=== PATIENT | female | born 1945 | race Caucasian/White ===

== ENCOUNTER 2019-10-06 11:47 | Outpatient (CLI) | payer BC, SELFPAY ==
[2019-10-06 12:20] LABS: Add Urine Microscopic? YES; Appearance Urine Clear (Clear); Bilirubin Urine Negative (Negative); Blood Urine Negative (Negative); Color Urine Yellow (Yellow); Glucose Urine UA Negative (Negative); Ketones Urine Negative (Negative); Leukocyte Esterase Ur 2+ LEU/UL (Negative); Mucus Urine Rare /lpf; Nitrate Urine Negative (Negative); Protein Urine Negative (Negative); RBC Urine 0-2 /hpf (0-2); Specific Grav Ur 1.016 (1.001-1.035); Squamous Epithelial Cell Urine Many /hpf (Few); Transitional Epi Cells Urine Rare /hpf (None Seen); Urobilinogen Urine Negative mg/dL (<2.0)
== END 2019-10-06 11:48 | disposition home or self-care (01) ==
LOC: ANHLAB 11:49
PROVIDERS: PCP Internal Medicine; Visit Provider Clinical Nurse Specialist
DX: N39.0 Urinary tract infection, site not specified (principal)
CPT/HCPCS: 81001; 87086; 87088

== ENCOUNTER 2019-11-13 09:41 | Outpatient (CLI) | payer BC, SELFPAY ==
--- NOTE | 2019-11-13 09:43 | ECG_ITS ---
Measurements Intervals Bertha Rate: 56 P: 64 ID: [id number] QRS: 55 QRSD: 86 T: 64 QT: 405 QTc: 392 Interpretive Statements SINUS BRADYCARDIA BORDERLINE ECG Electronically Signed On 11-13-2019 10:16:39 CDT by Ish Gibbons D.O.
[2019-11-13 10:07] LABS: Hematocrit 37.9 % (37.0-47.0); Hemoglobin 12.8 g/dL (12.0-15.0)
== END 2019-11-13 09:42 | disposition home or self-care (01) ==
PROVIDERS: Anesthesiology; PCP Internal Medicine; Visit Provider Orthopaedic Surgery
DX: I10 Essential (primary) hypertension (principal); D64.9 Anemia, unspecified; R94.31 Abnormal electrocardiogram [ECG] [EKG]
CPT/HCPCS: 36415; 85014; 85018; 93005

== ENCOUNTER 2019-11-14 01:19 | Outpatient (CLI) | payer BC, SELFPAY ==
[2019-11-14 19:24] LABS: SARS-CoV-2 RNA PCR Negative
== END 2019-11-14 01:20 | disposition home or self-care (01) ==
LOC: ANHCOVIDDT 01:20
PROVIDERS: PCP Internal Medicine; Visit Provider Orthopaedic Surgery
DX: Z01.812 Encounter for preprocedural laboratory examination (principal); Z11.59 Encounter for screening for other viral diseases
CPT/HCPCS: 87635; C9803; U0003

== ENCOUNTER 2019-11-16 01:02 | Day surgery (SDC) | payer BC, SELFPAY ==
[2019-11-10 12:43] VITALS: BMI 28.2
[2019-11-16] VITALS (8 sets, daily range): BP systolic 120–167; BP diastolic 60–72; PULSE 62–84; RESP 10–16; TEMP 35.9–36.8; O2SAT 97–100
--- NOTE | ~2019-11-16 | XR_ITS ---
EXAMINATION: XR surgery orthopedic DATE: 11/16/2019 10:57 INDICATION: Pes planus. TECHNIQUE: 3 intraoperative fluoroscopic views of the right foot were obtained. I was not present. Fl uoroscopy exposure time was 65 seconds. COMPARISON: Right foot radiographs 10/04/2019 FINDINGS: There are changes of calcaneal osteotomy with internal fixation with 2 screws. Skin carla are noted. IMPRESSION: 1. Calcaneal osteotomy with internal fixation. Reviewed, dictated and finalized at location A.
--- NOTE | 2019-11-16 07:13 | WPDHPUPDATE1 ---
History and Physical Update Update Date/Time: 11/16/19 07:13 History and Physical has been reviewed, including an updated exam of the patient. There are NO changes in the patient's condition. Covid test negative Risks, benefits, and alternatives have been discussed and questions answered. Patient agrees to proceed with procedure.
[2019-11-16] MEDS: LACTATED RINGERS 1,000 ML 30 ML IV CONT ×2 (07:30→11:11)
[2019-11-16] MEDS: ACETAMINOPHEN 500 MG TABLET 1000 MG PO (07:31)
[2019-11-16] MEDS: KETOROLAC 15 MG/ML VIAL (*BKC) IV PUSH (07:33)
--- NOTE | 2019-11-16 07:59 | WPDANESEPPF ---
Anes - Initial Pre Proc Eval Procedure: Operation Date: 11/16/19 09:00 Proposed Procedures p Right Posterior Tibial Tendon Reconstruction with Flexor Digitorum Tendon Transfer, Posterior Calcaneal Osteotomy, Spring Ligament Reconstruction - Bryant Dejesus MD s Achilles Tendon Lengthening - Bryant Dejesus MD Date/Time: 11/16/19 07:59 Surgeon: Bryant Dejesus MD Pre Op Diagnosis: rt posterior tibial tendon dysfunction, flat foot, Patient Data Age: 74 Gender: F Height: 5 ft 6 in Weight: 81.4 kg Last Vital Signs Temp 36.8 C 11/16/19 07:50 Pulse 62 11/16/19 07:50 Resp 16 11/16/19 07:50 BP 167/67 H 11/16/19 07:50 Pulse Ox 100 11/16/19 07:50 Allergies Allergy/AdvReac Type Severity Reaction Status Date / Time lisinopril Allergy Mild Cough Verified 11/10/19 12:16 Sulfa (Sulfonamide Allergy Unknown Unknown Verified 11/10/19 12:16 Antibiotics) hydrochlorothiazide Allergy Dizziness Verified 11/10/19 12:16 and nausea Home Medications Medication Instructions Recorded Confirmed Type L. gasseri-B. bifidum-B longum 1.5 1 cap PO DAILY cap 03/30/19 11/16/19 History billion cell capsule acetaminophen 650 mg tablet 650 mg PO Q4H PRN 03/30/19 11/16/19 History apixaban 5 mg tablet 5 mg PO BID 03/30/19 11/16/19 History calcium carbonate 600 mg calcium 600 mg PO DAILY 03/30/19 11/16/19 History (1,500 mg) tablet cholecalciferol (vitamin D3) 50 2,000 unit PO DAILY 03/30/19 11/16/19 History mcg (2,000 unit) capsule flecainide 50 mg tablet 50 mg PO Q12H 03/30/19 11/16/19 History fluticasone propionate 50 2 spray NASAL DAILY 03/30/19 11/16/19 History mcg/actuation nasal spray,suspension multivitamin 1 tablet PO DAILY 03/30/19 11/16/19 History ferrous sulfate 325 mg (65 mg 325 mg PO DAILY #90 tablet 08/17/19 11/16/19 Rx iron) tablet omeprazole 20 mg capsule,delayed 20 mg PO DAILY #90 cap 08/30/19 11/16/19 Rx release metoprolol succinate 25 mg 12.5 mg PO DAILY tablet 09/22/19 11/16/19 History tablet,extended release 24 hr valsartan 40 mg tablet 40 mg PO DAILY tablet 09/22/19 11/16/19 History tolterodine 4 mg capsule,extended 4 mg PO Q24H #90 cap 10/17/19 11/16/19 Rx release 24 hr estradiol 10 mcg vaginal tablet 10 mcg VAGINAL 2XW #30 tablet 10/30/19 11/16/19 Rx docusate sodium 100 mg capsule 100 mg PO DAILY 11/07/19 11/16/19 History diclofenac sodium 2 gm TOPICAL HS 11/10/19 11/16/19 History Patient hx anesthesia problems: none Family hx anesthesia problems: none PMFSH Past Medical History Medical History Allergies Anemia Arthritis Atrial fibrillation Cataract Chicken pox Decreased GFR Flatfoot Gastrocnemius equinus of right lower extremity Hemorrhoids History of anesthesia reaction History of measles, mumps, or rubella Hypertension Hyponatremia Migraine headache Osteoarthritis Overactive bladder Posterior tibial tendon dysfunction (PTTD) of right lower extremity Pulmonary heart disease Seasonal allergies Spring ligament tear Urinary frequency Vitamin deficiency Weight gain Surgical History Surgical History H/O foot surgery Cyst removed on left foot 08/2018 H/O knee surgery Torn cartilage Left 2000 H/O tubal ligation BL 1978 History of hip surgery left hip 2019 History of knee replacement Right 2006 Left 2017 Status post repair of pectoralis muscle tear Tear in left rip Family History Family History Mother Family history of Alzheimer's disease, Onset Age: 85 Sibling Patient's brother is in good health Father MVA (motor vehicle accident) Social History Social History Smoking status: Never smoker Second hand tobacco smoke exposure: No Alcohol intake: current Living arrangements: with family Kateanalia
--- NOTE | 2019-11-16 08:35 | WPDANESPNB ---
Anes - Peripheral Nerve Block Date/Time: 11/16/19 08:35 I have discussed with the patient/family/POA the placement of a peripheral nerve block for post-operative pain management, including associated risks, benefits, complications, and side effects. Alternative methods of post-operative analgesia were detailed. Questions were solicited and answers provided to the satisfaction of the patient/family/POA. Time-Out: A pre-procedural Time-Out was completed immediately before starting the procedure and confirmed: Patient Identification, Site, Procedure, Patient Position and the Availability of Requisite Equipment. Clinical Indications: Acute post-operative pain management requested by the operative surgeon. Nerve Block Insertion Note Anes-nerve block: posterior fossa sciatic right and other (Saphenous) Patient position: supine Needle: 22 gauge, stimulating, insulated echogenic needle. Needle length: 80 mm Technique: nerve stimulation lost at (mA) (0.4) Injectate: bupivacaine 0.5% with epi 5 mcg/ml (23cc sciatic and 7 cc saphenous) Observations: tolerated well Complications: none Procedure start time:: 826 Procedure end time:: 835
[2019-11-16] MEDS: ceFAZolin 2 GM/D5W 50 ML 2 GM/50 ML BAG IVPB (08:47)
--- NOTE | 2019-11-16 11:23 | PM.PROC ---
Procedure Note - Detailed Date of procedure: 11/16/19 Pre-op diagnosis: rt posterior tibial tendon dysfunction, flat foot, Post-op diagnosis: same Procedure performed: Right flatfoot reconstruction with calcaneal osteotomy, posterior tibial reconstruction with flexor digitorum transfer, Achilles tendon length Description of procedure: Indications: Patient is a 74-year-old woman with severe flatfoot deformity, posterior tibial tendinitis with partial tear and Achilles tightening / contracture. Patient failed conservative treatment bracing, physical therapy, custom inserts. She has pain with daily activity and with any weight-bearing. She presents for operative treatment. What was done: Patient identified in the preoperative holding. Informed consent given. Operative extremity marked. Patient received intravenous antibiotics. Patient brought to the operating room where underwent general anesthetic by anesthesia team. Positioned supine on operating room table. Time-out performed confirming the patient, site of the surgery and the plan. Right lower extremity prepped draped usual sterile surgical fashion using a ChloraPrep skin solution. Foot and ankle exsanguinated and thigh tourniquet inflated to 250 mmHg. Local anesthetic for the Achilles tendon. Ankles noted to have -10 degrees of dorsiflexion in neutral. Fifteen blade knife use to perform a abimbola section of the Achilles tendon on the medial side. Tendon slide performed. Wounds irrigated oblique incision made over the lateral aspect of the calcaneal tuberosity with 15 blade knife. Hemostasis controlled electrocautery. Care taken to isolate the sural nerve and retracted it. Z shaped step cut planned out on the lateral surface of the calcaneus verified with image intensification. Sagittal saw used to the osteotomy lateral. Completed with an osteotome. Posterior tuberosity then translated medially as well as rotated. Iliac crest allograft bone graft packed into the opening. Provisionally pinned and checked with image intensification. Fixation with 5.0 mm fully threaded headless cannulated screws x2. Image intensification confirmed final alignment and placement of the hardware. Wound thoroughly irrigated with antibiotic solution. Deep fascia repaired with 3 0 Monocryl interrupted suture. Subcutaneous tissue repaired with 3 0 Monocryl interrupted suture and skin repaired with carla. Stab incisions for the percutaneous screw fixation fixed with carla. Oblique incision made over the medial aspect posterior tibial tendon sheath with a 15 blade knife. Hemostasis controlled with electrocautery. Tendon sheath incised in line with skin incision. Copious amounts of inflammatory tendon fluid suctioned out. Posterior tibial tendon thickened scarred and partially torn. So sharply released off the navicula with 15 blade knife. Drill hole placed in the medial navicula from dorsal to plantar. Flexor digitorum then found deep in the wound and traced out distally and released. Stay suture placed in the end of the tendon. Sustentacular talum dissected out. Reform with the internal brace secured to the sustentacular min verified with image intensification. With the foot in corrected position suture was then passed through the hole in the navicular and along with the flexor digitorum tendon. This was secured with a 4.75 mm bioabsorbable interference screw. Image intensification confirmed final alignment of the foot. Good correction of the pes [place] valgus deformity noted. The posterior tibial tendon was then sutured into the flexor digitorum with 0 Vicryl interrupted suture. Thorough irrigation of the wound. Tendon sheath repaired with 0 Vicryl running suture. Subcutaneous tissue repaired with 2 Vicryl. Skin repaired with carla. Sterile dressings were then applied. A well-padded short-leg cast then applied. The patient was then woken from anesthesia, extubated and taken to the recovery room in stable c
[2019-11-16] MEDS: oxyCODONE HCL (*CRX) 5 MG TAB IR PO (13:05)
== END 2019-11-16 13:18 | disposition home or self-care (01) ==
PROVIDERS: PCP Internal Medicine; Visit Provider Orthopaedic Surgery
PROC: (CPT 28750; principal; 2019-11-16 09:00)
PROC: (CPT 27650; 2019-11-16 09:00)
DX: M21.41 Flat foot [pes planus] (acquired), right foot (principal); M76.821 Posterior tibial tendinitis, right leg; M67.01 Short Achilles tendon (acquired), right ankle; G89.18 Other acute postprocedural pain; I10 Essential (primary) hypertension; I48.91 Unspecified atrial fibrillation; D64.9 Anemia, unspecified; Z79.01 Long term (current) use of anticoagulants
CPT/HCPCS: 28300; 28200; 27691; 27685; 64450; 64445; A9270; C1713; J0690; J1100; J1170; J1885; J2250; J2405; J2704; J3010; J7120

== ENCOUNTER 2019-11-20 14:01 | Outpatient (CLI) | payer BC, SELFPAY ==
--- NOTE | ~2019-11-20 | US_ITS ---
US venous doppler LE RT DATE: 11/20/2019 14:35 INDICATION: Right lower extremity pain TECHNIQUE: Real-time and color flow imaging and Doppler analysis of the veins of the right lower extr emity COMPARISON: None FINDINGS: The right greater saphenous vein is patent. There is spontaneous and phasic flow and normal augmentation and color flow signal and normal kassi dina of the common femoral, femoral and popliteal veins. Posterior tibial and peroneal veins are not evaluated due to cast. IMPRESSION: No evidence of deep venous thrombosis of the right common femoral, femoral or popliteal v eins Reviewed, dictated and finalized at Location A. Reviewed, dictated and finalized at location A. IMPRESSION: No evidence of deep venous thrombosis of the right common femoral, femoral or popliteal veins
== END 2019-11-20 14:02 | disposition home or self-care (01) ==
PROVIDERS: PCP Internal Medicine; Visit Provider Clinical Nurse Specialist
DX: R52 Pain, unspecified (principal); R60.9 Edema, unspecified
CPT/HCPCS: 93971

== ENCOUNTER 2019-12-15 11:24 | Outpatient (CLI) | payer BC, SELFPAY ==
[2019-12-15 12:25] LABS: Iron 94 ug/dL (37-170)
[2019-12-15 12:36] LABS: Percent Iron Saturation 30 % (20-50)
== END 2019-12-15 11:25 | disposition home or self-care (01) ==
PROVIDERS: PCP Internal Medicine; Visit Provider Clinical Nurse Specialist
DX: D64.9 Anemia, unspecified (principal)
CPT/HCPCS: 36415; 82728; 83540; 83550

== ENCOUNTER 2020-03-15 15:10 | Outpatient (CLI) | payer BC, SELFPAY ==
--- NOTE | ~2020-03-15 | DEXA_ITS ---
Bone Density Report Name: Sue Nam Age: 74 Sex: Female Ethnicity: White Date of : 1945 Indication: postmenopausal; height loss; Referring Provider: MICHAEL KWONG Study: Bone densitometry was performed. Exam Date: March 15, 2020 Accession number: [id number] Bone Density: Region BMD T-score Z-score Classification AP Spine (L1-L4) 1.004 -0.4 1.9 Normal Femoral Neck (Left) 0.715 -1.2 0.8 Osteopenia Total Hip (Left) 0.864 -0.6 1.0 Normal Total Hip Bilateral Avg 0.839 -0.9 0.8 Normal Femoral Neck (Right) 0.681 -1.5 0.4 Osteopenia Total Hip (Right) 0.812 -1.1 0.6 Osteopenia World Health Organization criteria for BMD impression classify patients as: Normal (T-score at or above -1.0), Osteopenia (T-score between -1.0 and -2.5), or Osteoporosis (T-score at or below -2.5). 10-year Fracture Risk(1): Major Osteoporotic Fracture 11% Hip Fracture 1.8% Reported Risk Factors: [place] (), Neck BMD=0.681, BMI=29.1 (1) FRAX(R) Version 3.08. Fracture probability calculated for an untreated patient. Fracture probability may be lower if the patient has received treatment. Previous Exams: Region Exam Age BMD T-score BMD Change BMD Change Date g/cm2 vs Baseline vs Previous AP Spine(L1-L4) 03/15/2020 74 1.004 -0.4 -0.203(-16.8%) -0.063(-5.9%)* 09/26/2013 68 1.067 0.2 -0.140(-11.6%) -0.053(-4.7%)# 09/22/2011 66 1.120 0.7 -0.087(-7.2%)# 0.105(10.3%)# 08/14/2009 64 1.015 -0.3 -0.192(-15.9%) -0.068(-6.3%)* 08/12/2007 62 1.083 0.3 -0.123(-10.2%) -0.123(-10.2%) 07/25/2005 60 1.206 1.4 -0.001(-0.1%) -0.001(-0.1%) 01/27/2003 57 1.207 1.5 Total Hip(Left) 03/15/2020 74 0.864 -0.6 -0.207(-19.3%) -0.050(-5.5%)* 12/21/2017 72 0.914 -0.2 -0.157(-14.7%) -0.013(-1.4%) 10/07/2015 70 0.927 -0.1 -0.144(-13.4%) -0.016(-1.7%) 09/26/2013 68 0.943 0.0 -0.128(-11.9%) -0.020(-2.1%)# 09/22/2011 66 0.963 0.2 -0.108(-10.1%) -0.038(-3.8%)# 08/14/2009 64 1.001 0.5 -0.070(-6.5%)* -0.023(-2.2%) 08/12/2007 62 1.023 0.7 -0.047(-4.4%)* -0.023(-2.2%) 07/25/2005 60 1.046 0.9 -0.024(-2.3%) -0.024(-2.3%) 01/27/2003 57 1.071 1.1 Total Hip(Right) 03/15/2020 74 0.812 -1.1 -0.218(-21.2%) -0.057(-6.6%)* 12/21/2017 72 0.870 -0.6 -0.161(-15.6%) -0.034(-3.8%)* 10/07/2015 70 0.904 -0.3 -0.127(-12.3%) -0.024(-2.6%) 09/26/2013 68 0.928 -0.1 -0.103(-10.0%) -0.001(-0.1%)# 09/22/2011 66 0.928 -0.1 -0.103(-10.0%) -0.053(-5.4%)# 08/14/2009 64 0.981 0.3 -0.050(-4.8%)* -0.001(-0.1%) 08/12/2007 62 0.983 0.3 -0.048(-4.7%)
--- NOTE | ~2020-03-15 | MM_ITS ---
EXAMINATION: MM screening sherin BI w lalo HISTORY: Screening TECHNIQUE: Craniocaudal and mediolateral oblique 3-D tomosynthesis images were obtained and synthetic 2-D images were generated. CAD analysis was submitted and interpreted. COMPARISON: Comparison to multiple prior studies sequentially, with oldest reviewed study dated 10/03. BREAST PARENCHYMAL COMPOSITION: There are scattered areas of fibroglandular density. FINDINGS: There is no evidence of suspicious mass, calcification, or architectural distortion to sugg est malignancy in either breast. There has been no suspicious interval change. IMPRESSION: 1. No mammographic evidence of malignancy. 2. Recommend routine screening mammography in one year. BI-RADS Category 1: Negative Reviewed, dictated and finalized at location A. RHANGER
[2020-03-15 15:22] LABS: Basophils Absolute Auto 0.1 K/mm3 (0.0-0.1); Basophils Percent Auto 1.3 % (0.2-1.2); Eosinophils Absolute Auto 0.1 K/mm3 (0-0.3); Eosinophils Percent Auto 1.9 % (0-4.4); Hematocrit 37.9 % (37.0-47.0); Hemoglobin 12.7 g/dL (12.0-15.0); Immature Granulocyte Absolute 0.02 K/mm3 (0.00-0.031); Immature Granulocyte Percent A 0.4 % (0-0.5); Lymphocytes Absolute Auto 1.16 K/mm3 (0.9-3.2); Lymphocytes Percent Auto 22.1 % (18.3-44.2); Mean Corpuscular HGB Conc 33.5 g/dl (32-36); Mean Corpuscular Hemoglobin 31.2 pg (26-34); Mean Corpuscular Volume 93.1 fl (80-100); Mean Platelet Volume 10.4 fl (7.4-10.4); Monocytes Absolute Auto 0.6 K/mm3 (0.1-0.6); Monocytes Percent Auto 10.6 % (2.6-8.5); Neutrophils Absolute Auto 3.4 K/mm3 (1.3-6.7); Neutrophils Percent Auto 63.7 % (45.5-73.1); Platelet Count Result 236 k/mm3 (150-375); Red Blood Count 4.07 M/mm3 (4.2-5.4); Red Cell Distribution Width 12.3 % (11.5-14.5); White Blood Count 5.3 K/mm3 (4.5-10.0)
[2020-03-15 15:34] LABS: Alanine Aminotransferase 19 U/L (4-35); Albumin Level 4.4 g/dL (3.5-5.1); Alkaline Phosphatase 115 U/L (38-126); Anion Gap 5 mmol/L (8-16); Aspartate Amino Transferase 27 U/L (14-36); Bilirubin,Total 0.4 mg/dL (0.2-1.3); Blood Urea Nitrogen 19 mg/dL (7-17); Carbon Dioxide 30 mmol/L (22-30); Chloride 101 mmol/L (98-107); Cholesterol 212 mg/dL (0-200); Estimated Glomerular Filt Rate > 60; Glucose 107 mg/dL (65-105); HDL Direct 94 mg/dL; Potassium 4.3 mmol/L (3.4-5.0); Sodium 136 mmol/L (137-145); Triglycerides 129 mg/dL (<150)
[2020-03-15 15:45] LABS: LDL Cholesterol Direct 83 mg/dL
== END 2020-03-15 15:11 | disposition home or self-care (01) ==
PROVIDERS: Nurse Practitioner; PCP Internal Medicine; Visit Provider Obstetrics & Gynecology
DX: Z12.31 Encounter for screening mammogram for malignant neoplasm of breast (principal); Z78.0 Asymptomatic menopausal state; D64.9 Anemia, unspecified; I10 Essential (primary) hypertension; M85.89 Other specified disorders of bone density and structure, multiple sites
CPT/HCPCS: 36415; 77063; 77067; 77080; 80053; 80061; 82728; 85025

== ENCOUNTER 2020-04-24 14:04 | Outpatient (CLI) | payer BC, SELFPAY | END 2020-04-24 14:05 | disposition home or self-care (01) | LOC: ANHCOVIDVC 14:04 | PROVIDERS: PCP Internal Medicine | DX: Z23 Encounter for immunization (principal) | CPT/HCPCS: 0001A; 91300 ==

== ENCOUNTER 2020-05-15 14:09 | Outpatient (CLI) | payer BC, SELFPAY | END 2020-05-15 14:10 | disposition home or self-care (01) | LOC: ANHCOVIDVC 14:09 | PROVIDERS: PCP Internal Medicine | DX: Z23 Encounter for immunization (principal) | CPT/HCPCS: 0002A; 91300 ==

== ENCOUNTER → 2020-05-21 07:09 | Outpatient (CLI) | payer BC, SELFPAY ==
--- NOTE | ~2020-05-21 | MR_ITS ---
EXAMINATION: MR hip LT wo con DATE: 05/21/2020 08:02 INDICATION: Worsening chronic left hip pain. Abductor weakness. TECHNIQUE: Magnetic resonance imaging (MRI) of the left hip was performed without intravenous contra st. Sequences included full-field axial PD-weighted FS FSE and T1-weighted FSE, coronal of the pelvis with PD-weighted FS FSE, small field of view of the left hip with axial PD-weighted FS FSE, sagitta l PD-weighted FS FSE and coronal PD weighted FS FSE. Additional radial T1-weighted FGR oriented ortho gonal to the acetabular rim were obtained for evaluation of the labrum. COMPARISON: None FINDINGS: Bones/labrum/cartilage: Alignment is normal. No fracture, avascular necrosis or pathologic marrow replacing process. Again s een is chondral labral delamination and a small linear tear at the 1:00 to 5 position of the anterosu perior left acetabular labrum. Degenerative tearing of the anterosuperior left acetabular labrum whic h is small with more amorphous increased signal and of the posterior superior glenoid labrum which is thickened, also with mild amorphous increased signal. Mild osteoarthritis at the left hip with diffu se partial thickness cartilage loss which has progressed, now with mild subarticular cystic change at the anterosuperior acetabulum. There are suture anchor tracks at the left greater trochanter likely for prior abductor tendon repair. Lumbosacral spondylosis with severe disc height loss and mild fibro vascular degenerative endplate changes. Fluid: Symmetric physiologic amount of fluid within both hip joints. Soft tissues: Relatively symmetric moderate fatty atrophy of the bilateral gluteus minimus muscle bellies. There is also more focal fatty atrophy involving the anterior muscle bellies of the bilateral gluteus medius medius muscles consistent with prior partial tears of the associated anterior gluteus medius tendons. The atrophy is mild and unchanged on the right. On the left. Atrophy is moderate severity and which appears largely new since the prior study. The atrophy of the left gluteus medius medius muscle belly has increased since the prior study. There are change of prior left abductor tendon repair along the lateral and posterior facets of the left greater trochanter. There is a recurrent tear along the lef t gluteus medias insertion along the lateral facet. There is a small fluid collection at the tear def ect which measures approximately 1.4 cm AP along the lateral facet and approximately 2.5 cm craniocau dally. Foci of susceptibility artifact along the retracted gluteus medius medius tendon resulting fro m the prior tendon repair are retracted approximately 4 cm from the lateral facet tear defect. The po rtion of the gluteus medius tendon repair extending to the posterior and superior to posterior facets remain intact with mild tendinopathy. There is tendinopathy and partial-thickness tear of the left g luteus minimus tendon with small hypertrophic osteophytes along its anterior facet insertion. Althoug h not diagnostically evaluated on the larger field of view images The iliopsoas and proximal hamstrin g tendons are normal. Limited evaluation of visceral organs of the pelvis is unremarkable. No pathol ogically enlarged pelvic/inguinal lymphadenopathy. IMPRESSION: 1. Status post left abductor tendon repair along the lateral and posterior recesses of the left great er trochanter with recurrent full-thickness tear measuring 1.4 cm AP at the lateral facet portion of the repaired left gluteus medius tendon. There has been progression of moderate fatty atrophy of the anterior left gluteus medius muscle belly. 2. Moderate fatty atrophy of the bilateral gluteus medius minimus muscle bellies with tendinopathy an d partial thickness tear at the left gluteus minimus tendon. 3. Unchanged mild fatty atrophy of the anterior right gluteus medius muscle with chronic parti
== END ==
PROVIDERS: Visit Provider Orthopaedic Surgery
DX: S76.012A Strain of muscle, fascia and tendon of left hip, initial encounter (principal); S73.102A Unspecified sprain of left hip, initial encounter
CPT/HCPCS: 73721

== ENCOUNTER → 2020-05-31 01:50 | Outpatient (CLI) | payer BC, SELFPAY ==
[2020-05-31 19:40] LABS: SARS-CoV-2 RNA PCR Negative
== END ==
PROVIDERS: Visit Provider Internal Medicine Gastroenterology
DX: Z01.812 Encounter for preprocedural laboratory examination (principal); Z20.822 Contact with and (suspected) exposure to COVID-19
CPT/HCPCS: C9803; U0003; U0005

== ENCOUNTER 2020-06-03 00:51 | Day surgery (SDC) | payer BC, SELFPAY ==
[2020-05-23 10:07] VITALS: BMI 28.8
[2020-06-03 12:52] VITALS: BP 145/70; PULSE 62; RESP 18; TEMP 36.8; O2SAT 100; BMI 28.9
--- NOTE | 2020-06-03 12:59 | WPDGICN ---
GI Consult Note Consult date/time: 06/03/20 12:59 HPI: Reason for visit is colonoscopy. This very pleasant lady seen in consultation request of the primary physician. Impression: There very pleasant lady with a history of melanosis coli. She recently was diagnosed with mild anemia. She is here for colonoscopy. AFib. HTN. Skin cancer. ELDA . DJD. Overactive bladder. Migraine cephalgia. Recommendation: Will proceed with colonoscopy. History: This very pleasant lady has a history of constipation. Previous colonoscopy about 9 years ago revealed melanosis coli. She denies any hematochezia, melena collect stools. Nausea, vomiting, hematemesis, dysphagia, odynophagia, indigestion heartburn tonight. Her EGD back about 9 years ago was unremarkable. Patient is here for Colonoscopic evaluation. she is on blood thinners for atrial fibrillation. Physical examination: General: very pleasant patient in no acute distress. HEENT: Head was normocephalic sclerae is clear mouth without masses neck was supple. Heart: Rate rhythm regular without S3 or S4. Lungs: CTA. Abdomen: Soft with no guarding or rigidity. Bowel sounds were active. Neurologic: Cranial nerves 2 through 12 intact. No focal defects. No clonus. Musculoskeletal system: Revealed no joint tenderness or swelling no muscle atrophy. Extremities: Reveal no significant edema. Skin: Warm and dry with normal turgor. Mental status: intact. Patient is alert and oriented. Review of Systems Review of Systems: All systems reviewed & are unremarkable except as noted in HPI and below PMFSH Past Medical History Medical History (Updated 05/08/20 @ 14:16 by Bryant Dejseus MD) Allergies Anemia Arthritis Atrial fibrillation Cataract Chicken pox Decreased GFR Flatfoot Gastrocnemius equinus of right lower extremity Hemorrhoids History of anesthesia reaction History of measles, mumps, or rubella Hypertension Hyponatremia Migraine headache Orthopedic hardware present Osteoarthritis Overactive bladder Posterior tibial tendon dysfunction (PTTD) of right lower extremity Pulmonary heart disease Seasonal allergies Skin cancer Spring ligament tear Urinary frequency Vitamin deficiency Weight gain Surgical History Surgical History H/O foot surgery Cyst removed on left foot 08/2018 H/O knee surgery Torn cartilage Left 2000 H/O tubal ligation BL 1978 History of hip surgery left hip 2018 History of knee replacement Right 2006 Left 2017 Status post repair of pectoralis muscle tear Tear in left rip Family History Family History Mother Family history of Alzheimer's disease, Onset Age: 85 Sibling Patient's brother is in good health Father MVA (motor vehicle accident) Social History Social History Smoking status: Never smoker Second hand tobacco smoke exposure: No Alcohol intake: current Substance use: never Substance use type: does not use Living arrangements: with family Spiritual care concerns: No Meds Home Medications and Allergies Home Medications Medication Instructions Recorded Confirmed Type Lactobacills gasseri-Bifidobac 1 cap PO DAILY cap 03/30/19 05/23/20 History bifidum,longum 1.5 billion cell capsule acetaminophen 650 mg tablet 1,300 mg PO DAILY PRN 03/30/19 05/23/20 History apixaban 5 mg tablet 5 mg PO BID 03/30/19 05/23/20 History cholecalciferol (vitamin D3) 50 2,000 unit PO DAILY 03/30/19 05/23/20 History mcg (2,000 unit) capsule flecainide 50 mg tablet 50 mg PO Q12H 03/30/19 05/23/20 History fluticasone propionate 50 2 spray NASAL DAILY 03/30/19 05/23/20 History mcg/actuation nasal spray,suspension multivitamin 1 tablet PO DAILY 03/30/19 05/23/20 History metoprolol succinate 25 mg 12.5
[2020-06-03] MEDS: LACTATED RINGERS 1,000 ML 150 ML IV CONT (13:05)
--- NOTE | 2020-06-03 13:22 | WPDANESEPPF ---
Anes - Initial Pre Proc Eval Procedure: Operation Date: 06/03/20 13:00 Proposed Procedures p Colonoscopy - Benjamin Negron DO Date/Time: 06/03/20 13:22 Surgeon: Benjamin Negron DO Pre Op Diagnosis: melanosis coli, anemia Patient Data Age: 75 Gender: F Height: 5 ft 6 in Weight: 81.4 kg Last Vital Signs Temp 98.2 F 06/03/20 12:52 Pulse 62 06/03/20 12:52 Resp 18 06/03/20 12:52 BP 145/70 H 06/03/20 12:52 Pulse Ox 100 06/03/20 12:52 Allergies Allergy/AdvReac Type Severity Reaction Status Date / Time hydrochlorothiazide Allergy Intermediate Dizziness Verified 06/03/20 12:49 and nausea lisinopril Allergy Mild Cough Verified 06/03/20 12:49 Sulfa (Sulfonamide Allergy Unknown Unknown Verified 06/03/20 12:49 Antibiotics) Home Medications Medication Instructions Recorded Confirmed Type Lactobacills gasseri-Bifidobac 1 cap PO DAILY cap 03/30/19 05/23/20 History bifidum,longum 1.5 billion cell capsule acetaminophen 650 mg tablet 1,300 mg PO DAILY PRN 03/30/19 05/23/20 History apixaban 5 mg tablet 5 mg PO BID 03/30/19 05/23/20 History cholecalciferol (vitamin D3) 50 2,000 unit PO DAILY 03/30/19 05/23/20 History mcg (2,000 unit) capsule flecainide 50 mg tablet 50 mg PO Q12H 03/30/19 05/23/20 History fluticasone propionate 50 2 spray NASAL DAILY 03/30/19 05/23/20 History mcg/actuation nasal spray,suspension multivitamin 1 tablet PO DAILY 03/30/19 05/23/20 History metoprolol succinate 25 mg 12.5 mg PO DAILY tablet 09/22/19 05/23/20 History tablet,extended release 24 hr valsartan 40 mg tablet 40 mg PO DAILY tablet 09/22/19 05/23/20 History estradiol 10 mcg vaginal tablet 10 mcg VAGINAL 2XW #30 tablet 10/30/19 05/23/20 Rx diclofenac sodium 2 gm TOPICAL HS PRN 11/10/19 05/23/20 History omeprazole 20 mg capsule,delayed 20 mg PO DAILY #90 cap 05/14/20 05/23/20 Rx release calcium carbonate-vitamin D3 2 cap PO DAILY 05/23/20 05/23/20 History [Calcium 600 with Vitamin D3] docusate sodium 50 mg PO BID 05/23/20 05/23/20 History tolterodine 4 mg PO DAILY 05/23/20 05/23/20 History Patient hx anesthesia problems: none Family hx anesthesia problems: none PMFSH Past Medical History Medical History (Updated 05/08/20 @ 14:16 by Bryant Dejesus MD) Allergies Anemia Arthritis Atrial fibrillation Cataract Chicken pox Decreased GFR Flatfoot Gastrocnemius equinus of right lower extremity Hemorrhoids History of anesthesia reaction History of measles, mumps, or rubella Hypertension Hyponatremia Migraine headache Orthopedic hardware present Osteoarthritis Overactive bladder Posterior tibial tendon dysfunction (PTTD) of right lower extremity Pulmonary heart disease Seasonal allergies Skin cancer Spring ligament tear Urinary frequency Vitamin deficiency Weight gain Surgical History Surgical History H/O foot surgery Cyst removed on left foot 08/2018 H/O knee surgery Torn cartilage Left 2000 H/O tubal ligation BL 1978 History of hip surgery left hip 2019 History of knee replacement Right 2007 Left 2017 Status post repair of pectoralis muscle tear Tear in left rip Family History Family History Mother Family history of Alzheimer's disease, Onset Age: 85 Sibling Patient's brother is in good health Father MVA (motor vehicle accident) Social History Social History Smoking status: Never smoker Second hand tobacco smoke exposure: No Alcohol intake: current Substance use: never Substance use type: does not use Living arrangements: with family Spiritual care concerns: No Anes - Eval Final PreProcedure Day of Procedure 06/03/20 13:22 Patient weight: normal Heart: regular rate and rhythm Lungs: clear to auscultation Airway: Mallampati scale class II Neur
[2020-06-03 14:55] VITALS: BP 118/49; PULSE 65; RESP 18; O2SAT 100
[2020-06-03 15:05] VITALS: BP 122/61; PULSE 62; RESP 20; O2SAT 98
[2020-06-03 15:15] VITALS: BP 125/55; PULSE 60; RESP 18; O2SAT 98
== END 2020-06-03 15:25 | disposition home or self-care (01) ==
PROVIDERS: Visit Provider Internal Medicine Gastroenterology
PROC: 0DJD8ZZ Inspection of Lower Intestinal Tract, Via Natural or Artificial Opening Endoscopic (ICD-10-PCS; CPT 45378; principal; 2020-06-03 13:00)
DX: D64.9 Anemia, unspecified (principal); D12.3 Benign neoplasm of transverse colon; D12.2 Benign neoplasm of ascending colon; K63.5 Polyp of colon; K63.89 Other specified diseases of intestine; K64.8 Other hemorrhoids; I48.91 Unspecified atrial fibrillation; I10 Essential (primary) hypertension; G47.33 Obstructive sleep apnea (adult) (pediatric); N32.81 Overactive bladder; M19.90 Unspecified osteoarthritis, unspecified site; Z79.01 Long term (current) use of anticoagulants
CPT/HCPCS: 45380; 45385; 88305; J2704; J7120

== ENCOUNTER → 2020-06-15 06:46 | Outpatient (CLI) | payer BC, SELFPAY ==
[2020-06-15 19:16] LABS: SARS-CoV-2 RNA PCR Negative
== END ==
PROVIDERS: Visit Provider Internal Medicine Cardiovascular Disease
DX: Z01.812 Encounter for preprocedural laboratory examination (principal); Z20.822 Contact with and (suspected) exposure to COVID-19
CPT/HCPCS: C9803; U0003; U0005

== ENCOUNTER 2020-06-19 01:44 | Day surgery (SDC) | payer BC, SELFPAY ==
[2020-06-19] VITALS (16 sets, daily range): BP systolic 79–182; BP diastolic 45–104; PULSE 60–81; RESP 12–19; TEMP 36.1–36.5; O2SAT 97–100; BMI 28.5
[2020-06-19 07:40] LABS: Basophils Absolute Auto 0.1 K/mm3 (0.0-0.1); Basophils Percent Auto 1.5 % (0.2-1.2); Eosinophils Absolute Auto 0.1 K/mm3 (0-0.3); Eosinophils Percent Auto 2.5 % (0-4.4); Hematocrit 40.1 % (37.0-47.0); Hemoglobin 13.2 g/dL (12.0-15.0); Immature Granulocyte Absolute 0.01 K/mm3 (0.00-0.031); Immature Granulocyte Percent A 0.2 % (0-0.5); Lymphocytes Absolute Auto 1.37 K/mm3 (0.9-3.2); Lymphocytes Percent Auto 28.8 % (18.3-44.2); Mean Corpuscular HGB Conc 32.9 g/dl (32-36); Mean Corpuscular Volume 91.1 fl (80-100); Mean Platelet Volume 10.3 fl (7.4-10.4); Monocytes Absolute Auto 0.7 K/mm3 (0.1-0.6); Monocytes Percent Auto 13.7 % (2.6-8.5); Neutrophils Absolute Auto 2.5 K/mm3 (1.3-6.7); Neutrophils Percent Auto 53.3 % (45.5-73.1); Platelet Count Result 230 k/mm3 (150-375); Red Cell Distribution Width 12.9 % (11.5-14.5); White Blood Count 4.8 K/mm3 (4.5-10.0)
[2020-06-19 07:49] LABS: Anion Gap 7 mmol/L (8-16); Blood Urea Nitrogen 16 mg/dL (7-17); Calcium 10.1 mg/dL (8.4-10.2); Carbon Dioxide 29 mmol/L (22-30); Chloride 101 mmol/L (98-107); Estimated Glomerular Filt Rate > 60; Glucose 91 mg/dL (65-105); Potassium 4.3 mmol/L (3.4-5.0); Sodium 137 mmol/L (137-145)
[2020-06-19 07:50] LABS: INR 0.9; Prothrombin Time 12.5 Seconds (11.1-14.7)
--- NOTE | 2020-06-19 07:54 | WPDMODSED ---
Moderate Sedation Note-Pt Data Patient Data Diagnosis: Abnormal stress test Present Complaint: Sue Masters this 75-year-old female with paroxysmal AFib control with flecainide. She has no known ischemic heart disease. Her stress test in 2017 showed no ischemia. For surveillance for underlying ischemic and structural heart disease I repeated a stress test recently which showed evidence of CAD, with a small area of apical and anterior david-infarct ischemia, EF 66%. She is undergoing cardiac catheterization to clarify whether or not she does have CAD which would preclude the use of her flecainide. Her last dose of Eliquis was Wednesday night. Procedure to be performed/Plan: Conscious sedation and left heart catheterization Allergies Allergy/AdvReac Type Severity Reaction Status Date / Time hydrochlorothiazide Allergy Intermediate Dizziness Verified 06/19/20 07:31 and nausea lisinopril Allergy Mild Cough Verified 06/19/20 07:31 Sulfa (Sulfonamide Allergy Unknown Unknown Verified 06/19/20 07:31 Antibiotics) Home Medications Medication Instructions Recorded Confirmed Type Lactobacills gasseri-Bifidobac 1 cap PO DAILY cap 03/30/19 06/19/20 History bifidum,longum 1.5 billion cell capsule acetaminophen 650 mg tablet 650 mg PO Q8-12H PRN 03/30/19 06/19/20 History apixaban 5 mg tablet 5 mg PO BID 03/30/19 06/19/20 History cholecalciferol (vitamin D3) 50 2,000 unit PO DAILY 03/30/19 06/19/20 History mcg (2,000 unit) capsule flecainide 50 mg tablet 50 mg PO BID 03/30/19 06/19/20 History fluticasone propionate 50 2 spray NASAL DAILY 03/30/19 06/19/20 History mcg/actuation nasal spray,suspension multivitamin 1 tablet PO DAILY 03/30/19 06/19/20 History metoprolol succinate 25 mg 12.5 mg PO DAILY tablet 09/22/19 06/19/20 History tablet,extended release 24 hr valsartan 40 mg tablet 40 mg PO DAILY tablet 09/22/19 06/19/20 History estradiol 10 mcg vaginal tablet 10 mcg VAGINAL 2XW #30 tablet 10/30/19 06/19/20 Rx diclofenac sodium 2 gm TOPICAL HS PRN 11/10/19 06/19/20 History omeprazole 20 mg capsule,delayed 20 mg PO DAILY #90 cap 05/14/20 06/19/20 Rx release calcium carbonate-vitamin D3 2 cap PO DAILY 05/23/20 06/19/20 History [Calcium 600 with Vitamin D3] tolterodine 4 mg PO DAILY 05/23/20 06/19/20 History rizatriptan 10 mg PO ONCE 06/19/20 06/19/20 History sennosides-docusate sodium [Senna 1 tab-cap PO BID 06/19/20 06/19/20 History with Docusate Sodium] Current Medications: Active Medications Sodium Chloride (Normal Saline Iv) 500 mls @ 100 mls/hr IV CONT .Q5H IZABELA Sedation/Anesthesia: No previous sedation/anesthesia problems (including family history). [facility] Past Medical History Medical History Allergies Anemia Arthritis Atrial fibrillation Cataract Chicken pox Decreased GFR Flatfoot Gastrocnemius equinus of right lower extremity Hemorrhoids History of anesthesia reaction History of measles, mumps, or rubella Hypertension Hyponatremia Migraine headache Orthopedic hardware present Osteoarthritis Overactive bladder Posterior tibial tendon dysfunction (PTTD) of right lower extremity Pulmonary heart disease Seasonal allergies Skin cancer Spring ligament tear Urinary frequency Vitamin deficiency Weight gain Surgical History Surgical History H/O foot surgery Cyst removed on left foot 08/2018 H/O knee surgery Torn cartilage Left 2000 H/O tubal ligation BL 1978 History of hip surgery left hip 2019 History of knee replacement Right 2006 Left 2017 Status post repair of pectoralis muscle tear Tear in left rip Family History Family History Mother Family history of Alzheimer's disease, Onset Age: 85 Sibling Patient's brother is in good health Father MVA (motor vehicle accident) Social
--- NOTE | 2020-06-19 08:00 | WPDHPUPDATE1 ---
History and Physical Update Update Date/Time: 06/19/20 08:00 History and Physical has been reviewed, including an updated exam of the patient. The patient had an abnormal stress test recently and is being evaluated for possible underlying CAD. She does remain asymptomatic but takes flecainide which is contraindicated with ischemic disease if further investigation is warranted. There are NO changes in the patient's condition. Risks, benefits, and alternatives have been discussed and questions answered. Patient agrees to proceed with procedure.
--- NOTE | 2020-06-19 09:26 | WPDCARDPROC ---
Cardiac Cath Procedure Note Date of procedure:: 06/19/20 Performing physician:: Caridad Rivera MD Indication:: abnormal stress test Brief clinical history:: Patient is a 75-year-old female with a history of paroxysmal atrial fibrillation controlled with flecainide. Periodically I have re-evaluated her for any underlying ischemic heart disease which would contraindicate flecainide use. Her recent stress test showed fixed and reversible defects of the anterior apical segment. She is undergoing cardiac catheterization to see if she does or does not have CAD which would preclude the use of flecainide. Procedure Procedure performed:: conscious sedation Selective coronary angiography 9 left ventriculography Angiography the right common femoral artery Procedure note:: Procedure: 1. Conscious sedation 2. Left heart catheterization 3. Selective Coronary angiography 4. Left ventriculography 5. Angiography of the right common femoral artery Site: Right femoral artery Catheters: 5 Fijian arterial sheath, 5 Fijian 4 cm right and left Marija catheters, 5 Fijian pigtail catheter Conscious sedation: The patient has no known prior history of adverse affects of conscious sedation. Oropharynx was clear. The patient is deemed a good candidate for conscious sedation. Conscious sedation began at: 0907 Conscious sedation ended at: 0923 Total conscious sedation time: 16 minutes Medications: Versed 1 mg, fentanyl 50 mcg IV push The patient had continuous hemodynamic monitoring, and was also continuously monitored by: Adilene Serna RN The patient tolerated conscious sedation well. Detailed procedure: After informed consent the patient brought to the freezer laboratory technician and the right femoral area was prepped and draped in the usual fashion. After conscious sedation and local anesthesia the right femoral artery was punctured and cannulated with the arterial sheath. Selective Coronary angiography was performed with the coronary catheters in multiple projections. These were withdrawn. The pigtail catheter was advanced into the central circulation and left ventricle for pressure measurements and left ventriculography which was performed in the HADDAD projection. This was withdrawn. Next angiography of the right common femoral artery was performed which showed patent vessels and the sheath in suitable position for a vascular closure device. Angio-Seal was applied, sheath was removed and hemostasis was obtained. The patient tolerated the procedure well with no complications. Estimated blood loss was negligible. Findings:: PRESSURES: Pre angiographic aortic pressure was 160/70 mmHg and LV was 155/15 mmHg. Post angiography aortic pressure was 160/20 and LV was 160/60 mmHg. LEFT CORONARY ARTERY: The left main, Left anterior descending and circumflex vessels were widely patent free of disease. The circumflex was a very large dominant vessel which supplied the PDA and even part of the RV. RIGHT CORONARY ARTERY: The right coronary artery was diminutive and free of disease LEFT VENTRICULOGRAM: Normal left ventricular systolic function, EF estimated 70% Conclusion:: Normal coronary arteries Normal left ventricular systolic function Recommendations: Okay to continue flecainide Follow-up as scheduled
--- NOTE | 2020-06-19 09:41 | PM.OP ---
Procedure Note - Brief Procedure Note - Brief Date of procedure: 06/19/20 Pre-op diagnosis: abnormal stress test Post-op diagnosis: same Procedure performed: cardiac catheterization Anesthesia: local ( with conscious sedation) Surgeon: Caridad Rivera MD Findings: Normal coronary arteries Normal left ventricular systolic function Systolic hypertension
[2020-06-19] MEDS: SODIUM CHLORIDE 0.9% IV 500 ML 100 ML IV CONT (10:00)
--- NOTE | 2020-06-19 12:35 | SUR.PHASEII ---
RN called Dr. Rivera to notify her of patient's BP dropping to 79/45. Dr. Rivera asked RN to administer a fluid bolus and monitor for 2 additional hours to make sure BP is stable. RN running 250cc bolus at this time.
[2020-06-19] MEDS: SODIUM CHLORIDE 0.9% IV 250 ML 999 ML IV CONT (13:35)
== END 2020-06-19 15:30 | disposition home or self-care (01) ==
PROVIDERS: PCP Internal Medicine; Visit Provider Internal Medicine Cardiovascular Disease
PROC: 4A023N7 Measurement of Cardiac Sampling and Pressure, Left Heart, Percutaneous Approach (ICD-10-PCS; CPT 93452; principal; 2020-06-19 08:30)
DX: R94.39 Abnormal result of other cardiovascular function study (principal); I48.0 Paroxysmal atrial fibrillation; I10 Essential (primary) hypertension
CPT/HCPCS: 36415; 80048; 85025; 85610; 93458; C1760; C1887; C1894; G0269; J0360; J1644; J2250; J3010; J7040

== ENCOUNTER 2020-08-27 10:18 | Outpatient (CLI) | payer BC, SELFPAY ==
[2020-08-27 11:37] LABS: Anion Gap 9 mmol/L (8-16); Blood Urea Nitrogen 17 mg/dL (7-17); Calcium 9.8 mg/dL (8.4-10.2); Carbon Dioxide 27 mmol/L (22-30); Chloride 102 mmol/L (98-107); Estimated Glomerular Filt Rate 54; Glucose 61 mg/dL (65-105); Potassium 4.3 mmol/L (3.4-5.0); Sodium 138 mmol/L (137-145)
== END 2020-08-27 10:19 | disposition home or self-care (01) ==
PROVIDERS: Anesthesiology; PCP Internal Medicine; Visit Provider Orthopaedic Surgery
DX: Z01.818 Encounter for other preprocedural examination (principal); I10 Essential (primary) hypertension
CPT/HCPCS: 36415; 80048

== ENCOUNTER 2020-08-29 00:49 | Day surgery (SDC) | payer BC, SELFPAY ==
[2020-08-26 15:12] VITALS: BMI 28.5
[2020-08-29] VITALS (7 sets, daily range): BP systolic 126–163; BP diastolic 59–76; PULSE 62–71; RESP 8–18; TEMP 36.6; O2SAT 97–100; BMI 29.3
--- NOTE | ~2020-08-29 | XR_ITS ---
EXAMINATION: XR surgery orthopedic EXAM DATE: 08/29/2020 08:47 INDICATION: Removal right foot hardware. TECHNIQUE: Fluoroscopy used during XR surgery orthopedic performed by Dr. Bryant Dejesus MD. Rad iologist was not present for the imaging or procedure. Total fluoroscopic time of 46 seconds. The D AP for this procedure was 0.057 mGym2. A total of 3 images sent to PACS from the exam. FINDINGS: Previous exam had 2 screws in the right calcaneus. These have been removed. There is soft tissue surgical defect along the medial inferiorly. Correlate with procedure note. Suspect calcaneal osteotomy or fracture. There is decreased Boehler's angle. IMPRESSION: Fluoroscopy used during right calcaneal hardware removal. Reviewed, dictated and finalized at location B.
--- NOTE | 2020-08-29 06:56 | PM.IMHP ---
H&P: HPI History of Present Illness Date/Time: 08/29/20 06:56 Chief Complaint: Right foot pain Narrative: 8.5 months status post right flatfoot reconstruction surgery. Pain on the plantar aspect of the foot with prominent hardware. Unrelieved with conservative measures. Presents for surgical treatment of the prominent and painful hardware. Review of Systems Constitutional: Constitutional: Denies fever(s) Eyes: Eyes: Denies blurry vision ENT: Reports Normal hearing present Cardiovascular: Cardiovascular: Denies chest pain and Denies dyspnea Respiratory: Respiratory: Denies dyspnea and Denies wheezing Gastrointestinal: Gastrointestinal: Denies abdominal pain Genitourinary: Genitourinary: Denies urinary urgency Musculoskeletal: Musculoskeletal: Reports as per HPI and Denies numbness Integumentary/Breasts: Skin/Breast: Denies changing lesions and Denies sores Neurologic: Reports Normal hearing present, Denies behavioral changes, Denies confusion, Denies numbness and Denies convulsions Psychiatric: Psychiatric: Denies behavioral changes, Denies confusion and Denies hallucinations Endocrine: Endocrine: Denies heat intolerance Hematologic/Lymphatic: Hematologic/Lymphatic: Denies easy bleeding Allergic/Immunologic: Allergic/Immunologic: Denies wheezing PMFSH Past Medical History Medical History (Updated 08/29/20 @ 06:58 by Bryant Dejesus MD) Allergies Anemia Arthritis Atrial fibrillation Cataract Chicken pox Decreased GFR Flatfoot Foot pain, right Gastrocnemius equinus of right lower extremity Hemorrhoids History of anesthesia reaction History of measles, mumps, or rubella Hypertension Hyponatremia Migraine headache Orthopedic hardware present Osteoarthritis Overactive bladder Posterior tibial tendon dysfunction (PTTD) of right lower extremity Pulmonary heart disease Seasonal allergies Skin cancer Spring ligament tear Urinary frequency Vitamin deficiency Weight gain Surgical History Surgical History H/O foot surgery Cyst removed on left foot 08/2018 H/O knee surgery Torn cartilage Left 2000 H/O tubal ligation BL 1978 History of hip surgery left hip 2019 History of knee replacement Right 2006 Left 2017 Status post repair of pectoralis muscle tear Tear in left rip Family History Family History Mother Family history of Alzheimer's disease, Onset Age: 85 Sibling Patient's brother is in good health Father MVA (motor vehicle accident) Social History Social History Smoking status: Never smoker Second hand tobacco smoke exposure: No Alcohol intake: current Alcohol use details: rarely Substance use: never Substance use type: does not use Living arrangements: with family Spiritual care concerns: No Meds Home Medications and Allergies Home Medications Medication Instructions Recorded Confirmed Type Lactobacills gasseri-Bifidobac 1 cap PO DAILY cap 03/30/19 08/29/20 History bifidum,longum 1.5 billion cell capsule acetaminophen 650 mg tablet 650 mg PO Q8-12H PRN 03/30/19 08/26/20 History apixaban 5 mg tablet 5 mg PO BID 03/30/19 08/29/20 History cholecalciferol (vitamin D3) 50 2,000 unit PO DAILY 03/30/19 08/29/20 History mcg (2,000 unit) capsule flecainide 50 mg tablet 50 mg PO BID 03/30/19 08/29/20 History fluticasone propionate 50 2 spray NASAL DAILY 03/30/19 08/26/20 History mcg/actuation nasal spray,suspension multivitamin 1 tablet PO DAILY 03/30/19 08/29/20 History metoprolol succinate 25 mg 12.5 mg PO HS tablet 09/22/19 08/29/20 History tablet,extended release 24 hr valsartan 40 mg tablet 40 mg PO DAILY tablet 09/22/19 08/26/20 History estradiol 10 mcg vaginal tablet 10 mcg VAGINAL 2XW #30 tablet 10/30/19 08/26/20 Rx diclofenac sodium 2 gm TOPICAL HS
--- NOTE | 2020-08-29 06:58 | WPDHPUPDATE1 ---
History and Physical Update Update Date/Time: 08/29/20 06:58 History and Physical has been reviewed, including an updated exam of the patient. There are NO changes in the patient's condition. Risks, benefits, and alternatives have been discussed and questions answered. Patient agrees to proceed with procedure.
[2020-08-29] MEDS: LACTATED RINGERS 1,000 ML 30 ML IV CONT ×2 (07:00→08:48)
[2020-08-29] MEDS: ACETAMINOPHEN 500 MG TABLET 1000 MG PO (07:12)
[2020-08-29] MEDS: KETOROLAC 15 MG/ML VIAL (*BKC) IV PUSH (07:13)
--- NOTE | 2020-08-29 07:16 | WPDANESEPPF ---
Anes - Initial Pre Proc Eval Procedure: Operation Date: 08/29/20 07:30 Proposed Procedures p Removal Hardware Right Foot - Bryant Dejesus MD Date/Time: 08/29/20 07:16 Surgeon: Bryant Dejesus MD Pre Op Diagnosis: RIGHT FOOT PAINFUL HARDWARE Patient Data Age: 75 Gender: F Height: 1.68 m Weight: 80.3 kg Allergies Allergy/AdvReac Type Severity Reaction Status Date / Time lisinopril Allergy Mild Cough Verified 08/29/20 06:52 Sulfa (Sulfonamide Allergy Unknown Unknown Verified 08/29/20 06:52 Antibiotics) hydrochlorothiazide AdvReac Intermediate Dizziness Verified 08/29/20 06:52 and nausea Home Medications Medication Instructions Recorded Confirmed Type Lactobacills gasseri-Bifidobac 1 cap PO DAILY cap 03/30/19 08/29/20 History bifidum,longum 1.5 billion cell capsule acetaminophen 650 mg tablet 650 mg PO Q8-12H PRN 03/30/19 08/26/20 History apixaban 5 mg tablet 5 mg PO BID 03/30/19 08/29/20 History cholecalciferol (vitamin D3) 50 2,000 unit PO DAILY 03/30/19 08/29/20 History mcg (2,000 unit) capsule flecainide 50 mg tablet 50 mg PO BID 03/30/19 08/29/20 History fluticasone propionate 50 2 spray NASAL DAILY 03/30/19 08/26/20 History mcg/actuation nasal spray,suspension multivitamin 1 tablet PO DAILY 03/30/19 08/29/20 History metoprolol succinate 25 mg 12.5 mg PO HS tablet 09/22/19 08/29/20 History tablet,extended release 24 hr valsartan 40 mg tablet 40 mg PO DAILY tablet 09/22/19 08/26/20 History estradiol 10 mcg vaginal tablet 10 mcg VAGINAL 2XW #30 tablet 10/30/19 08/26/20 Rx diclofenac sodium 2 gm TOPICAL HS PRN 11/10/19 08/26/20 History calcium carbonate-vitamin D3 2 cap PO DAILY 05/23/20 08/29/20 History [Calcium 600 with Vitamin D3] tolterodine 4 mg PO DAILY 05/23/20 08/26/20 History sennosides-docusate sodium [Senna 1 tab-cap PO BID 06/19/20 08/26/20 History with Docusate Sodium] omeprazole 20 mg capsule,delayed 20 mg PO DAILY #90 cap 08/05/20 08/26/20 Rx release amiloride 5 mg tablet 5 mg PO DAILY 08/14/20 08/26/20 History Patient hx anesthesia problems: none Family hx anesthesia problems: none PMFSH Past Medical History Medical History (Updated 08/29/20 @ 06:58 by Bryant Dejesus MD) Allergies Anemia Arthritis Atrial fibrillation Cataract Chicken pox Decreased GFR Flatfoot Foot pain, right Gastrocnemius equinus of right lower extremity Hemorrhoids History of anesthesia reaction History of measles, mumps, or rubella Hypertension Hyponatremia Migraine headache Orthopedic hardware present Osteoarthritis Overactive bladder Posterior tibial tendon dysfunction (PTTD) of right lower extremity Pulmonary heart disease Seasonal allergies Skin cancer Spring ligament tear Urinary frequency Vitamin deficiency Weight gain Surgical History Surgical History H/O foot surgery Cyst removed on left foot 08/2018 H/O knee surgery Torn cartilage Left 2000 H/O tubal ligation BL 1979 History of hip surgery left hip 2019 History of knee replacement Right 2007 Left 2017 Status post repair of pectoralis muscle tear Tear in left rip Family History Family History Mother Family history of Alzheimer's disease, Onset Age: 85 Sibling Patient's brother is in good health Father MVA (motor vehicle accident) Social History Social History Smoking status: Never smoker Second hand tobacco smoke exposure: No Alcohol intake: current Alcohol use details: rarely Substance use: never Substance use type: does not use Living arrangements: with family Spiritual care concerns: No Anes - Eval Final PreProcedure Day of Procedure 08/29/20 07:16 Patient weight: overweight Heart: regular rate and rhythm Lungs: clear to auscultation Airway: Mallampati scale c
[2020-08-29] MEDS: ceFAZolin 2 GM/D5W 50 ML 2 GM/50 ML BAG IVPB (07:29)
[2020-08-29] MEDS: BUPIVACAINE HCL 0.5% PF 30 ML VIAL INFILTRATE (08:07)
--- NOTE | 2020-08-29 09:00 | W.PM.PROC2 ---
Procedure Note - Detailed Date of Procedure 08/29/20 Pre-op Diagnosis RIGHT FOOT PAINFUL HARDWARE Post-op Diagnosis same Procedure Performed Removal of hardware right foot, deep Surgeon Bryant Dejesus MD Gum Machine Filler 1st title i instructional assistant Anesthesia general Indications 75-year-old woman 9 months status post right flatfoot reconstruction. Her calcaneal hardware has become prominent and painful. She is otherwise to heal well. She has presents now for removal of the screws from the right calcaneus. Description of Procedure Patient identified in preoperative holding area. Operative extremity marked. Patient received intravenous antibiotics. Informed consent given. Patient taken the operating room where she underwent a general anesthetic. Positioned supine operating room table. Right foot prepped draped usual sterile surgical fashion using ChloraPrep skin solution. A plantar heel incision was made with a 15 blade knife over the prominent hardware which was visualized with image intensification. Hemostasis controlled electrocautery. Dissection carried down to the plantar heel. The 2 screws were identified and removed with a screwdriver. Screw holes were curetted and thoroughly irrigated with solution. Subcutaneous tissue closed with 2 Vicryl interrupted suture. Skin approximated with 4 nylon running suture. Any bleeding points were controlled with electrocautery prior to closure. Sterile dressing applied. Patient awoke from anesthesia, extubated and taken to the recovery room in stable condition. All sponge needle and instrument counts correct in the end the case. Estimated Blood Loss 10 Tourniquet Time 2 Drains No Packing No Pathology none sent Complications None Condition stable Disposition PACU
== END 2020-08-29 10:13 | disposition home or self-care (01) ==
PROVIDERS: PCP Internal Medicine; Visit Provider Orthopaedic Surgery
PROC: (CPT 20680; principal; 2020-08-29 07:30)
DX: T84.84XA Pain due to internal orthopedic prosthetic devices, implants and grafts, initial encounter (principal); M79.671 Pain in right foot; Y83.8 Other surgical procedures as the cause of abnormal reaction of the patient, or of later complication, without mention of misadventure at the time of the procedure; I48.91 Unspecified atrial fibrillation; I10 Essential (primary) hypertension; D64.9 Anemia, unspecified; Z79.01 Long term (current) use of anticoagulants
CPT/HCPCS: 20680; A9270; J0690; J1040; J1100; J1885; J2250; J2405; J2704; J3010; J7120

== ENCOUNTER 2021-03-24 10:28 | Outpatient (CLI) | payer BC, SELFPAY ==
--- NOTE | ~2021-03-24 | MM_ITS ---
EXAMINATION: MM screening sherin BI w lalo HISTORY: Screening TECHNIQUE: Craniocaudal and mediolateral oblique 3-D tomosynthesis images were obtained and synthetic 2-D images were generated. CAD analysis was submitted and interpreted. COMPARISON: Comparison to multiple prior studies sequentially, with oldest reviewed study dated 10/03. BREAST PARENCHYMAL COMPOSITION: Comparison to multiple prior studies sequentially, with oldest review ed study dated 10/03/2014. FINDINGS: There is no evidence of suspicious mass, calcification, or architectural distortion to sugg est malignancy in either breast. There has been no suspicious interval change. IMPRESSION: 1. No mammographic evidence of malignancy. 2. Recommend routine screening mammography in one year. BI-RADS Category 1: Negative Reviewed, dictated and finalized at location A. ER HELPER
== END 2021-03-24 10:29 | disposition home or self-care (01) ==
LOC: ANHIMG 10:30
PROVIDERS: PCP Internal Medicine; Visit Provider Obstetrics & Gynecology
DX: Z12.31 Encounter for screening mammogram for malignant neoplasm of breast (principal)
CPT/HCPCS: 77063; 77067

== ENCOUNTER 2021-06-16 12:29 | Outpatient (CLI) | payer BC, SELFPAY ==
[2021-06-16 13:34] LABS: Basophils Absolute Auto 0.1 K/mm3 (0.0-0.1); Basophils Percent Auto 1.1 % (0.2-1.2); Eosinophils Absolute Auto 0.1 K/mm3 (0-0.3); Eosinophils Percent Auto 2.1 % (0-4.4); Hematocrit 40.6 % (37.0-47.0); Hemoglobin 13.2 g/dL (12.0-15.0); Immature Granulocyte Absolute 0.02 K/mm3 (0.00-0.031); Immature Granulocyte Percent A 0.4 % (0-0.5); Lymphocytes Absolute Auto 1.02 K/mm3 (0.9-3.2); Lymphocytes Percent Auto 18.2 % (18.3-44.2); Mean Corpuscular HGB Conc 32.5 g/dl (32-36); Mean Corpuscular Hemoglobin 30.8 pg (26-34); Mean Corpuscular Volume 94.6 fl (80-100); Mean Platelet Volume 10.3 fl (7.4-10.4); Monocytes Absolute Auto 0.7 K/mm3 (0.1-0.6); Monocytes Percent Auto 11.6 % (2.6-8.5); Neutrophils Absolute Auto 3.7 K/mm3 (1.3-6.7); Neutrophils Percent Auto 66.6 % (45.5-73.1); Platelet Count Result 244 k/mm3 (150-375); Red Blood Count 4.29 M/mm3 (4.2-5.4); White Blood Count 5.6 K/mm3 (4.5-10.0)
[2021-06-16 13:43] LABS: Alanine Aminotransferase 19 U/L (4-35); Albumin Level 4.9 g/dL (3.5-5.1); Alkaline Phosphatase 126 U/L (38-126); Anion Gap 7 mmol/L (8-16); Aspartate Amino Transferase 26 U/L (14-36); Bilirubin,Total 0.3 mg/dL (0.2-1.3); Blood Urea Nitrogen 19 mg/dL (7-17); Calcium 9.7 mg/dL (8.4-10.2); Carbon Dioxide 28 mmol/L (22-30); Chloride 97 mmol/L (98-107); Cholesterol 256 mg/dL (0-200); Estimated Glomerular Filt Rate > 60; Glucose 95 mg/dL (65-110); HDL Direct 97 mg/dL; Sodium 132 mmol/L (137-145); Triglycerides 98 mg/dL (<150)
[2021-06-16 13:54] LABS: LDL Cholesterol Direct 95 mg/dL
[2021-06-16 14:32] LABS: Vitamin D 25 Hydroxy 73.2 ng/mL
== END 2021-06-16 12:30 | disposition home or self-care (01) ==
PROVIDERS: PCP Internal Medicine; Visit Provider Clinical Nurse Specialist
DX: I48.91 Unspecified atrial fibrillation (principal); I10 Essential (primary) hypertension; E55.9 Vitamin D deficiency, unspecified
CPT/HCPCS: 36415; 80053; 80061; 82306; 84443; 85025

== ENCOUNTER 2021-07-21 10:59 | Outpatient (CLI) | payer BC, SELFPAY ==
[2021-07-21 11:26] LABS: Alanine Aminotransferase 16 U/L (6-35); Albumin Level 4.5 g/dL (3.5-5.1); Alkaline Phosphatase 97 U/L (38-126); Anion Gap 7 mmol/L (8-16); Aspartate Amino Transferase 23 U/L (14-36); Bilirubin,Total 0.4 mg/dL (0.2-1.3); Blood Urea Nitrogen 25 mg/dL (7-17); Calcium 9.1 mg/dL (8.4-10.2); Carbon Dioxide 27 mmol/L (22-30); Chloride 100 mmol/L (98-107); Estimated Glomerular Filt Rate > 60; Glucose 84 mg/dL (65-110); Potassium 4.5 mmol/L (3.4-5.0); Sodium 134 mmol/L (137-145)
== END 2021-07-21 11:00 | disposition home or self-care (01) ==
LOC: ANHLAB 11:00
PROVIDERS: PCP Internal Medicine; Visit Provider Clinical Nurse Specialist
DX: B35.1 Tinea unguium (principal); Z51.81 Encounter for therapeutic drug level monitoring; Z79.899 Other long term (current) drug therapy
CPT/HCPCS: 36415; 80053

== ENCOUNTER 2022-05-15 11:47 | Emergency (ER) | payer BC, SELFPAY ==
--- NOTE | 2022-05-15 11:55 | ED.URI ---
HPI - URI/Sore Throat General Chief Complaint: Upper Respiratory Infection Stated Complaint: cough Time Seen by Provider: 05/15/22 11:56 Source: patient, RN notes reviewed and old records reviewed Mode of arrival: ambulatory Limitations: no limitations History of Present Illness HPI Narrative: 77-year-old female presents to the [facility] with complaints of a cough for couple of days. States the cough is worse at night. Has a history of chronic sinus issues. Denies any chest pain or shortness of breath. Related Data Home Medications Medication Instructions Recorded Confirmed Lactobacills gasseri-Bifidobac 1 cap PO DAILY 03/30/19 05/15/22 bifidum,longum 1.5 billion cell capsule ([employer]) acetaminophen 650 mg tablet 650 mg PO Q8-12H PRN Pain 03/30/19 05/15/22 apixaban 5 mg tablet (Eliquis) 5 mg PO BID 03/30/19 05/15/22 cholecalciferol (vitamin D3) 50 2,000 unit PO DAILY 03/30/19 05/15/22 mcg (2,000 unit) capsule flecainide 50 mg tablet 50 mg PO BID 03/30/19 05/15/22 fluticasone propionate 50 2 spray intranasal DAILY 03/30/19 05/15/22 mcg/actuation nasal spray,suspension multivitamin 1 tablet PO DAILY 03/30/19 05/15/22 metoprolol succinate 25 mg 12.5 mg PO HS 09/22/19 05/15/22 tablet,extended release 24 hr valsartan 40 mg tablet 40 mg PO DAILY 09/22/19 05/15/22 diclofenac sodium 1 % topical gel 2 gm topical HS PRN Pain 11/10/19 05/15/22 calcium carbonate 600 mg-vitamin 2 cap PO DAILY 05/23/20 05/15/22 D3 12.5 mcg (500 unit) capsule (Calcium 600 with Vitamin D3) amiloride 5 mg tablet 5 mg PO DAILY 08/14/20 05/15/22 sennosides 8.6 mg tablet (senna) 8.6 mg PO DAILY 05/15/22 05/15/22 Allergies Allergy/AdvReac Type Severity Reaction Status Date / Time lisinopril Allergy Mild Cough Verified 05/15/22 11:57 Sulfa (Sulfonamide Allergy Unknown Unknown Verified 05/15/22 11:57 Antibiotics) hydrochlorothiazide AdvReac Intermediate Dizziness Verified 05/15/22 11:57 and nausea Review of Systems Review of Systems: All systems reviewed & are unremarkable except as noted in HPI and below Constitutional: Constitutional: Reports no additional constitutional complaints Eyes: Eyes: Reports no additional eye complaints ENT: Reports as per HPI and Reports nasal congestion Cardiovascular: Cardiovascular: Reports no additional cardiovascular complaints, Denies chest pain and Denies dyspnea Respiratory: Respiratory: Reports as per HPI, Denies chest congestion, Reports cough and Denies dyspnea Gastrointestinal: Gastrointestinal: Reports no additional gastrointestinal complaints, Denies abdominal pain, Denies nausea and Denies vomiting Musculoskeletal: Musculoskeletal: Reports no additional musculoskeletal complaints Integumentary/Breasts: Skin/Breast: Reports system reviewed and no additional complaints, except as docu Neurologic: Reports system reviewed and no additional complaints, except as documented Psychiatric: Psychiatric: Reports no additional psychiatric complaints Allergic/Immunologic: Allergic/Immunologic: Reports no additional allergic/immunologic complaints PMFSH Past Medical History Medical History Allergies Anemia Arthritis Atrial fibrillation Cataract Chicken pox Decreased GFR Encounter for Postoperative Care Flatfoot Foot pain, right Gastrocnemius equinus of right lower extremity Hemorrhoids History of anesthesia reaction History of measles, mumps, or rubella Hypertension Hyponatremia Migraine headache Orthopedic hardware present Osteoarthritis Overactive bladder Plantar fasciitis of right foot Posterior tibial tendon dysfunction (PTTD) of right lower extremity Pulmonary heart disease Seasonal allergies Skin cancer Spring ligament tear Urinary frequency Vitamin deficiency Weight gain Surgical History Surgical History H/O foot surgery Cyst rem
[2022-05-15 11:58] VITALS: BP 109/53; PULSE 74; RESP 16; TEMP 37.6; O2SAT 97
[2022-05-15 11:59] VITALS: BP 109/53; PULSE 74; RESP 16; TEMP 37.6; O2SAT 97
== END 2022-05-15 12:17 | disposition home or self-care (01) ==
PROVIDERS: Emergency Provider Nurse Practitioner; PCP Internal Medicine
DX: J01.90 Acute sinusitis, unspecified (principal); R09.82 Postnasal drip; R05.9 Cough, unspecified; I48.91 Unspecified atrial fibrillation; M19.90 Unspecified osteoarthritis, unspecified site; I10 Essential (primary) hypertension; Z85.828 Personal history of other malignant neoplasm of skin; Z96.653 Presence of artificial knee joint, bilateral; I27.9 Pulmonary heart disease, unspecified
CPT/HCPCS: 99213; G0463

== ENCOUNTER 2022-05-20 12:53 | Outpatient (CLI) | payer BC, SELFPAY ==
--- NOTE | ~2022-05-20 | MM_ITS ---
EXAMINATION: MM screening sherin BI w lalo HISTORY: Screening mammogram TECHNIQUE: Craniocaudal and mediolateral oblique 3-D tomosynthesis images were obtained and synthetic 2-D images were generated. CAD analysis was submitted and interpreted. COMPARISON: March 24, 2021, March 15, 2020, February 22, 2019 bilateral screening mammogram examina tions BREAST PARENCHYMAL COMPOSITION: There are scattered areas of fibroglandular density. FINDINGS: Scattered bilateral benign calcifications. There is no evidence of suspicious mass, calcifi cation, or architectural distortion to suggest malignancy in either breast. There has been no suspici ous interval change. IMPRESSION: 1. No mammographic evidence of malignancy. 2. Recommend routine screening mammography in one year. BI-RADS Category 2: Benign finding(s). Reviewed, dictated and finalized at location A.
--- NOTE | ~2022-05-20 | DEXA_ITS ---
Bone Density Report Name: GLADYS COLBERT Age: 77 Sex: Female Ethnicity: White Date of : 1945 Indication: osteopenia; postmenopausal; height loss; Referring Provider: MICHAEL KWONG Study: Bone densitometry was performed. Exam Date: May 20, 2022 Accession number: [id number] Bone Density: Region BMD T-score Z-score Classification AP Spine(L1-L4) 1.043 0.0 2.4 Normal Femoral Neck (Left) 0.699 -1.3 0.7 Osteopenia Total Hip (Left) 0.857 -0.7 1.1 Normal Femoral Neck (Right) 0.680 -1.5 0.6 Osteopenia Total Hip (Right) 0.801 -1.2 0.6 Osteopenia Total Hip Mean 0.829 -1.0 0.9 Normal World Health Organization criteria for BMD impression classify patients as: Normal (T-score at or above -1.0), Osteopenia (T-score between -1.0 and -2.5), or Osteoporosis (T-score at or below -2.5). 10-year Fracture Risk(1): Major Osteoporotic Fracture 11% Hip Fracture 2.1% Reported Risk Factors: [place] (), Neck BMD=0.680, BMI=29.7 (1) FRAX(R) Version 3.08. Fracture probability calculated for an untreated patient. Fracture probability may be lower if the patient has received treatment. Previous Exams: Region Exam Age BMD T-score BMD Change BMD Change Date g/cm2 vs Baseline vs Previous AP Spine (L1-L4) 05/20/2022 77 1.043 0.0 -0.024 (-2.2%) 0.040 (3.9%)* 03/15/2020 74 1.004 -0.4 -0.063 (-5.9%) -0.063 (-5.9%) 09/26/2013 68 1.067 0.2 Total Hip(Left) 05/20/2022 77 0.857 -0.7 -0.106 (-11.0% -0.007 (-0.8%) 03/15/2020 74 0.864 -0.6 -0.099 (-10.3% -0.050 (-5.5%) 12/21/2017 72 0.914 -0.2 -0.049 (-5.1%) -0.013 (-1.4%) 10/07/2015 70 0.927 -0.1 -0.036 (-3.7%) -0.016 (-1.7%) 09/26/2013 68 0.943 0.0 -0.020 (-2.1%) -0.020 (-2.1%) 09/22/2011 66 0.963 0.2 Total Hip(Right) 05/20/2022 77 0.801 -1.2 -0.127 (-13.7% -0.012 (-1.4%) 03/15/2020 74 0.812 -1.1 -0.116 (-12.5% -0.057 (-6.6%) 12/21/2017 72 0.870 -0.6 -0.059 (-6.3%) -0.034 (-3.8%) 10/07/2015 70 0.904 -0.3 -0.024 (-2.6%) -0.024 (-2.6%) 09/26/2013 68 0.928 -0.1 -0.001 (-0.1%) -0.001 (-0.1%) 09/22/2011 66 0.928 -0.1 *Denotes significance at 95% confidence level, LSC for AP Spine = 0.022 g/cm2, LSC for Total Hip = 0.027 g/cm2 # Denotes dissimilar scan types or analysis methods Clinical Information Provided by Patient: Has used the following medications: Vitamin D, Calcium Patient maximum height was 68 Menopause Age: 52 No regular weight bearing ex
== END 2022-05-20 12:54 | disposition home or self-care (01) ==
LOC: ANHIMG 12:54
PROVIDERS: PCP Internal Medicine; Visit Provider Obstetrics & Gynecology
DX: Z12.31 Encounter for screening mammogram for malignant neoplasm of breast (principal); Z78.0 Asymptomatic menopausal state; M85.852 Other specified disorders of bone density and structure, left thigh; M85.851 Other specified disorders of bone density and structure, right thigh
CPT/HCPCS: 77063; 77067; 77080

== ENCOUNTER 2022-06-25 13:14 | Outpatient (CLI) | payer BC, SELFPAY ==
[2022-06-25 13:42] LABS: Basophils Absolute Auto 0.1 K/mm3 (0.0-0.1); Basophils Percent Auto 0.7 % (0.2-1.2); Eosinophils Absolute Auto 0.1 K/mm3 (0-0.3); Eosinophils Percent Auto 0.9 % (0-4.4); Hematocrit 38.1 % (37.0-47.0); Hemoglobin 12.7 g/dL (12.0-15.0); Immature Granulocyte Absolute 0.03 K/mm3 (0.00-0.031); Immature Granulocyte Percent A 0.4 % (0-0.5); Lymphocytes Absolute Auto 0.91 K/mm3 (0.9-3.2); Lymphocytes Percent Auto 13.1 % (18.3-44.2); Mean Corpuscular HGB Conc 33.3 g/dl (32-36); Mean Corpuscular Hemoglobin 30.9 pg (26-34); Mean Corpuscular Volume 92.7 fl (80-100); Mean Platelet Volume 10.2 fl (7.4-10.4); Monocytes Absolute Auto 0.7 K/mm3 (0.1-0.6); Monocytes Percent Auto 9.9 % (2.6-8.5); Neutrophils Absolute Auto 5.2 K/mm3 (1.3-6.7); Platelet Count Result 276 k/mm3 (150-375); Red Blood Count 4.11 M/mm3 (4.2-5.4); Red Cell Distribution Width 12.9 % (11.5-14.5); White Blood Count 6.9 K/mm3 (4.5-10.0)
[2022-06-25 13:53] LABS: Alanine Aminotransferase 20 U/L (6-35); Albumin Level 4.6 g/dL (3.5-5.1); Alkaline Phosphatase 105 U/L (38-126); Anion Gap 10 mmol/L (8-16); Aspartate Amino Transferase 25 U/L (14-36); Bilirubin,Total 0.4 mg/dL (0.2-1.3); Blood Urea Nitrogen 26 mg/dL (7-17); Calcium 9.1 mg/dL (8.4-10.2); Carbon Dioxide 25 mmol/L (22-30); Chloride 94 mmol/L (98-107); Cholesterol 238 mg/dL (0-200); Estimated Glomerular Filt Rate > 60; Glucose 84 mg/dL (65-110); HDL Direct 95 mg/dL; Sodium 129 mmol/L (137-145); Triglycerides 116 mg/dL (<150)
[2022-06-25 14:04] LABS: LDL Cholesterol Direct 92 mg/dL
[2022-06-25 14:44] LABS: Vitamin D 25 Hydroxy 78.4 ng/mL
== END 2022-06-25 13:15 | disposition home or self-care (01) ==
PROVIDERS: PCP Internal Medicine; Visit Provider Nurse Practitioner
DX: D64.9 Anemia, unspecified (principal); E55.9 Vitamin D deficiency, unspecified; I10 Essential (primary) hypertension; Z13.220 Encounter for screening for lipoid disorders
CPT/HCPCS: 36415; 80053; 80061; 82306; 85025

== ENCOUNTER 2022-07-27 13:26 | Outpatient (CLI) | payer BC, SELFPAY ==
[2022-07-27 14:16] LABS: Anion Gap 9 mmol/L (8-16); Blood Urea Nitrogen 23 mg/dL (7-17); Calcium 9.1 mg/dL (8.4-10.2); Carbon Dioxide 27 mmol/L (22-30); Chloride 99 mmol/L (98-107); Estimated Glomerular Filt Rate > 60; Glucose 95 mg/dL (65-110); Potassium 4.3 mmol/L (3.4-5.0); Sodium 135 mmol/L (137-145)
== END 2022-07-27 13:27 | disposition home or self-care (01) ==
PROVIDERS: PCP Internal Medicine; Visit Provider Nurse Practitioner
DX: E87.1 Hypo-osmolality and hyponatremia (principal)
CPT/HCPCS: 36415; 80048

== ENCOUNTER 2022-09-08 04:28 | Emergency (ER) | payer BC, SELFPAY ==
[2022-09-08 04:29] VITALS: BP 184/75; PULSE 60; RESP 14; TEMP 36.4; O2SAT 97
--- NOTE | 2022-09-08 04:50 | ED.EYEPROB ---
HPI - Eye Problem General Chief complaint: Eye Problems Stated complaint: i think i have something in my eye Time Seen by Provider: 09/08/22 04:41 History of Present Illness HPI Narrative: This is a 77-year-old female with past history of cataract surgery, who presents to the emergency department complaining of left eye irritation and foreign body sensation. The patient states she woke up this evening and noticed a foreign body sensation in the left eye. She states she tried to flush the eye with multiple eye drops but the sensation persisted. She denies trauma to the eye or recent closure to dust or other foreign objects. She denies fevers, chills or other eye pain. Related Data Home Medications Medication Instructions Recorded Confirmed Lactobacills gasseri-Bifidobac 1 cap PO DAILY 03/30/19 06/22/22 bifidum,longum 1.5 billion cell capsule ([employer]) acetaminophen 650 mg tablet 650 mg PO Q8-12H PRN Pain 03/30/19 06/22/22 apixaban 5 mg tablet (Eliquis) 5 mg PO BID 03/30/19 06/22/22 cholecalciferol (vitamin D3) 50 2,000 unit PO DAILY 03/30/19 06/22/22 mcg (2,000 unit) capsule flecainide 50 mg tablet 50 mg PO BID 03/30/19 06/22/22 fluticasone propionate 50 2 spray intranasal DAILY 03/30/19 06/22/22 mcg/actuation nasal spray,suspension multivitamin 1 tablet PO DAILY 03/30/19 06/22/22 metoprolol succinate 25 mg 12.5 mg PO HS 09/22/19 06/22/22 tablet,extended release 24 hr valsartan 40 mg tablet 40 mg PO DAILY 09/22/19 06/22/22 diclofenac sodium 1 % topical gel 2 gm topical HS PRN Pain 11/10/19 06/22/22 calcium carbonate 600 mg-vitamin 2 cap PO DAILY 05/23/20 06/22/22 D3 12.5 mcg (500 unit) capsule (Calcium 600 with Vitamin D3) amiloride 5 mg tablet 5 mg PO DAILY 08/14/20 06/22/22 sennosides 8.6 mg tablet (senna) 8.6 mg PO DAILY 05/15/22 06/22/22 Allergies Allergy/AdvReac Type Severity Reaction Status Date / Time lisinopril Allergy Mild Cough Verified 06/22/22 10:03 vibegron [From Gemtesa] Allergy Mild Rash Verified 06/22/22 10:03 Sulfa (Sulfonamide Allergy Unknown Unknown Verified 06/22/22 10:03 Antibiotics) hydrochlorothiazide AdvReac Intermediate Dizziness Verified 06/22/22 10:03 and nausea Review of Systems Review of Systems: CONSTITUTIONAL: Denies fever, chills, or sweats. EYES: Left eye irritation and mild redness denies visual changes, or discharge. ENT: Denies rhinorrhea, congestion, sore throat, or otalgia. CARDIOVASCULAR: Denies chest pain, palpitations, or edema. RESPIRATORY: Denies cough or dyspnea. NEUROLOGIC: Denies headache, numbness, dizziness, or weakness. PSYCHIATRIC: Denies anxiety or depression. [facility] Past Medical History Medical History Allergies Anemia Arthritis Atrial fibrillation Cataract Chicken pox Decreased GFR Encounter for Postoperative Care Flatfoot Foot pain, right Gastrocnemius equinus of right lower extremity Hemorrhoids History of anesthesia reaction History of measles, mumps, or rubella Hypertension Hyponatremia Migraine headache Orthopedic hardware present Osteoarthritis Overactive bladder Plantar fasciitis of right foot Posterior tibial tendon dysfunction (PTTD) of right lower extremity Pulmonary heart disease Seasonal allergies Skin cancer Spring ligament tear Urinary frequency Vitamin deficiency Weight gain Surgical History Surgical History H/O foot surgery Cyst removed on left foot 08/2018 H/O knee surgery Torn cartilage Left 2000 H/O tubal ligation BL 1978 History of hip surgery left hip 2019 History of knee replacement Right 2006 Left 2017 Status post repair of pectoralis muscle tear Tear in left rip Family History Family History Mother Family history of Alzheimer's disease, Onset Age: 85 Sibling Patient's brother is in
== END 2022-09-08 05:36 | disposition home or self-care (01) ==
PROVIDERS: Emergency Provider Preventive Medicine Aerospace Medicine; PCP Internal Medicine
DX: H57.12 Ocular pain, left eye (principal); D64.9 Anemia, unspecified; M19.90 Unspecified osteoarthritis, unspecified site; I48.91 Unspecified atrial fibrillation; I10 Essential (primary) hypertension
CPT/HCPCS: 99283

== ENCOUNTER 2022-11-21 12:46 | Emergency (ER) | payer BC, SELFPAY ==
[2022-11-21 13:05] VITALS: BP 109/78; PULSE 110; RESP 16; TEMP 36.9; O2SAT 99
--- NOTE | 2022-11-21 13:10 | ED.FEMALEGU ---
HPI - Female Genitourinary General Chief complaint: Urogenital-Female Stated complaint: UTI Time Seen by Provider: 11/21/22 13:10 Source: patient Mode of arrival: ambulatory Limitations: no limitations History of Present Illness HPI Narrative: Sue is a 77-year-old female patient presenting to the clinic today with complaints of a possible urinary tract infection. She reports she is having some urinary frequency and burning with urination that began last night. She denies any fever or chills. She denies any abdominal pain or flank pain. Related Data Home Medications Medication Instructions Recorded Confirmed Lactobacills gasseri-Bifidobac 1 cap PO DAILY 03/30/19 11/21/22 bifidum,longum 1.5 billion cell capsule ([employer]) acetaminophen 650 mg tablet 650 mg PO Q8-12H PRN Pain 03/30/19 11/21/22 apixaban 5 mg tablet (Eliquis) 5 mg PO BID 03/30/19 11/21/22 cholecalciferol (vitamin D3) 50 2,000 unit PO DAILY 03/30/19 11/21/22 mcg (2,000 unit) capsule flecainide 50 mg tablet 50 mg PO BID 03/30/19 11/21/22 fluticasone propionate 50 2 spray intranasal DAILY 03/30/19 11/21/22 mcg/actuation nasal spray,suspension multivitamin 1 tablet PO DAILY 03/30/19 11/21/22 metoprolol succinate 25 mg 12.5 mg PO HS 09/22/19 11/21/22 tablet,extended release 24 hr valsartan 40 mg tablet 40 mg PO DAILY 09/22/19 11/21/22 diclofenac sodium 1 % topical gel 2 gm topical HS PRN Pain 11/10/19 11/21/22 calcium carbonate 600 mg-vitamin 2 cap PO DAILY 05/23/20 11/21/22 D3 12.5 mcg (500 unit) capsule (Calcium 600 with Vitamin D3) amiloride 5 mg tablet 5 mg PO DAILY 08/14/20 11/21/22 sennosides 8.6 mg tablet (senna) 8.6 mg PO DAILY 05/15/22 11/21/22 Allergies Allergy/AdvReac Type Severity Reaction Status Date / Time lisinopril Allergy Mild Cough Verified 11/21/22 13:00 vibegron [From Gemtesa] Allergy Mild Rash Verified 11/21/22 13:00 Sulfa (Sulfonamide Allergy Unknown Unknown Verified 11/21/22 13:00 Antibiotics) hydrochlorothiazide AdvReac Intermediate Dizziness Verified 11/21/22 13:00 and nausea Review of Systems Review of Systems: Pertinent positives per HPI. Patient denies any fever, chills, rash, headache, visual changes, dizziness, cough, runny nose, sore throat, shortness of breath, chest pain, palpitations, nausea, vomiting, diarrhea, constipation, abdominal pain, or any urinary issues. [facility] Past Medical History Medical History Allergies Anemia Arthritis Atrial fibrillation Cataract Chicken pox Decreased GFR Encounter for Postoperative Care Flatfoot Foot pain, right Gastrocnemius equinus of right lower extremity Hemorrhoids History of anesthesia reaction History of measles, mumps, or rubella Hypertension Hyponatremia Migraine headache Orthopedic hardware present Osteoarthritis Overactive bladder Plantar fasciitis of right foot Posterior tibial tendon dysfunction (PTTD) of right lower extremity Pulmonary heart disease Seasonal allergies Skin cancer Spring ligament tear Urinary frequency Vitamin deficiency Weight gain Surgical History Surgical History H/O foot surgery Cyst removed on left foot 08/2018 H/O knee surgery Torn cartilage Left 2000 H/O tubal ligation BL 1978 History of hip surgery left hip 2019 History of knee replacement Right 2007 Left 2017 Status post repair of pectoralis muscle tear Tear in left rip Family History Family History Mother Family history of Alzheimer's disease, Onset Age: 85 Sibling Patient's brother is in good health Father MVA (motor vehicle accident) Social History Social History Smoking status: Never smoker Second hand tobacco smoke exposure: No Alcohol intake: current Alcohol u
== END 2022-11-21 13:15 | disposition home or self-care (01) ==
PROVIDERS: Emergency Provider Nurse Practitioner Family; PCP Internal Medicine
DX: N30.01 Acute cystitis with hematuria (principal); B96.1 Klebsiella pneumoniae [K. pneumoniae] as the cause of diseases classified elsewhere; M19.90 Unspecified osteoarthritis, unspecified site; I48.91 Unspecified atrial fibrillation; I10 Essential (primary) hypertension; Z85.828 Personal history of other malignant neoplasm of skin
CPT/HCPCS: 81003; 87077; 87086; 87186; 99213; G0463

== ENCOUNTER 2023-03-03 23:50 | Outpatient (NON) | payer BC, SELFPAY ==
[2023-03-04 01:13] LABS: Appearance Urine Turbid (Clear); Bacteria Urine 4+ /hpf; Bilirubin Urine Negative (Negative); Blood Urine 1+ (Negative); Color Urine Yellow (Yellow); Glucose Urine UA Negative (Negative); Ketones Urine Negative (Negative); Leukocyte Esterase Ur 3+ LEU/UL (Negative); Nitrate Urine Negative (Negative); Protein Urine Negative (Negative); RBC Urine 0-2 /hpf (0-2); Specific Grav Ur 1.013 (1.001-1.035); Squamous Epithelial Cell Urine Few /hpf (Few); Urobilinogen Urine 0.2 mg/dL (<2.0); WBC Urine >100 /hpf; pH Urine 5.5 (5.0-9.0)
[2023-03-04 02:14] LABS: Add Urine Microscopic? YES
== END 2023-03-03 23:51 | disposition home or self-care (01) ==
LOC: ANHGOSHLAB 23:53
PROVIDERS: PCP Internal Medicine; Visit Provider Nurse Practitioner
DX: R30.0 Dysuria (principal)
CPT/HCPCS: 81001; 87077; 87086; 87186

== ENCOUNTER 2023-03-18 14:50 | Outpatient (CLI) | payer BC, SELFPAY ==
[2023-03-18 16:01] LABS: Appearance Urine Cloudy (Clear); Bacteria Urine 3+ /hpf; Bilirubin Urine Negative (Negative); Color Urine Yellow (Yellow); Glucose Urine UA Negative (Negative); Ketones Urine Negative (Negative); Leukocyte Esterase Ur 3+ LEU/UL (Negative); Nitrate Urine Negative (Negative); Non Pathogenic Casts 0-2; Protein Urine Negative (Negative); RBC Urine 0-2 /hpf (0-2); Specific Grav Ur 1.015 (1.001-1.035); Squamous Epithelial Cell Urine None seen /hpf (Few); Urobilinogen Urine 0.2 mg/dL (<2.0); WBC Urine >100 /hpf; pH Urine 5.5 (5.0-9.0)
[2023-03-18 16:05] LABS: Add Urine Microscopic? YES
== END 2023-03-18 14:51 | disposition home or self-care (01) ==
LOC: ANHLAB 14:51
PROVIDERS: PCP Internal Medicine; Visit Provider Nurse Practitioner
DX: N39.0 Urinary tract infection, site not specified (principal)
CPT/HCPCS: 81001; 87086

== ENCOUNTER 2023-03-30 11:37 | Outpatient (CLI) | payer BC, SELFPAY ==
[2023-03-30 12:24] LABS: Appearance Urine Clear (Clear); Bilirubin Urine Negative (Negative); Blood Urine Negative (Negative); Color Urine Yellow (Yellow); Glucose Urine UA Negative (Negative); Ketones Urine Negative (Negative); Leukocyte Esterase Ur Negative LEU/UL (Negative); Nitrate Urine Negative (Negative); Protein Urine Negative (Negative); Urobilinogen Urine 0.2 mg/dL (<2.0)
[2023-03-30 12:28] LABS: Add Urine Microscopic? NO
== END 2023-03-30 11:38 | disposition home or self-care (01) ==
LOC: ANHLAB 11:40
PROVIDERS: PCP Internal Medicine; Visit Provider Nurse Practitioner
DX: N39.0 Urinary tract infection, site not specified (principal)
CPT/HCPCS: 81003

== ENCOUNTER 2023-07-13 09:47 | Outpatient (CLI) | payer BC, SELFPAY ==
--- NOTE | ~2023-07-13 | MM_ITS ---
EXAMINATION: MM screening sherin BI w lalo HISTORY: Screening TECHNIQUE: Craniocaudal and mediolateral oblique 3-D tomosynthesis images were obtained and synthetic 2-D images were generated. CAD analysis was submitted and interpreted. COMPARISON: Comparison to multiple prior studies sequentially, with oldest reviewed study dated 03/2016. BREAST PARENCHYMAL COMPOSITION: There are scattered areas of fibroglandular density. FINDINGS: There is no evidence of suspicious mass, calcification, or architectural distortion to sugg est malignancy in either breast. There has been no suspicious interval change. IMPRESSION: 1. No mammographic evidence of malignancy. 2. Recommend routine screening mammography in one year. BI-RADS Category 1: Negative Reviewed, dictated and finalized at location B.
== END 2023-07-13 09:48 | disposition home or self-care (01) ==
PROVIDERS: PCP Internal Medicine; Visit Provider Obstetrics & Gynecology
DX: Z12.31 Encounter for screening mammogram for malignant neoplasm of breast (principal)
CPT/HCPCS: 77063; 77067

== ENCOUNTER 2023-07-13 14:07 | Outpatient (CLI) | payer BC, SELFPAY ==
[2023-07-13 14:40] LABS: Basophils Absolute Auto 0.1 K/mm3 (0.0-0.1); Basophils Percent Auto 1.2 % (0.2-1.2); Eosinophils Absolute Auto 0.1 K/mm3 (0-0.3); Eosinophils Percent Auto 2.5 % (0-4.4); Hematocrit 41.2 % (37.0-47.0); Hemoglobin 13.5 g/dL (12.0-15.0); Immature Granulocyte Absolute 0.01 K/mm3 (0.00-0.031); Immature Granulocyte Percent A 0.2 % (0-0.5); Lymphocytes Absolute Auto 1.16 K/mm3 (0.9-3.2); Lymphocytes Percent Auto 22.7 % (18.3-44.2); Mean Corpuscular HGB Conc 32.8 g/dl (32-36); Mean Corpuscular Hemoglobin 30.8 pg (26-34); Mean Corpuscular Volume 94.1 fl (80-100); Mean Platelet Volume 10.4 fl (7.4-10.4); Monocytes Absolute Auto 0.5 K/mm3 (0.1-0.6); Neutrophils Absolute Auto 3.3 K/mm3 (1.3-6.7); Neutrophils Percent Auto 63.4 % (45.5-73.1); Platelet Count Result 258 k/mm3 (150-375); Red Blood Count 4.38 M/mm3 (4.2-5.4); Red Cell Distribution Width 12.7 % (11.5-14.5); White Blood Count 5.1 K/mm3 (4.5-10.0)
[2023-07-13 15:14] LABS: Alanine Aminotransferase 20 U/L (6-35); Alkaline Phosphatase 111 U/L (38-126); Anion Gap 8 mmol/L (4-12); Aspartate Amino Transferase 28 U/L (14-36); Bilirubin,Total 0.6 mg/dL (0.2-1.3); Blood Urea Nitrogen 19 mg/dL (7-17); Calcium 9.9 mg/dL (8.4-10.2); Carbon Dioxide 26 mmol/L (22-30); Chloride 100 mmol/L (98-107); Estimated Glomerular Filt Rate > 60; Glucose 75 mg/dL (65-110); Potassium 5.2 mmol/L (3.4-5.0); Sodium 134 mmol/L (137-145)
[2023-07-13 15:26] LABS: Vitamin D 25 Hydroxy 78.1 ng/mL
== END 2023-07-13 14:08 | disposition home or self-care (01) ==
PROVIDERS: PCP Internal Medicine; Visit Provider Nurse Practitioner
DX: I10 Essential (primary) hypertension (principal); D64.9 Anemia, unspecified; E55.9 Vitamin D deficiency, unspecified
CPT/HCPCS: 36415; 80053; 82306; 85025

== ENCOUNTER 2023-09-02 11:24 | Outpatient (CLI) | payer BC, SELFPAY ==
[2023-09-02 11:55] LABS: Appearance Urine Clear (Clear); Bacteria Urine None Seen /hpf; Bilirubin Urine Negative (Negative); Blood Urine Negative (Negative); Color Urine Yellow (Yellow); Glucose Urine UA Negative (Negative); Ketones Urine Negative (Negative); Leukocyte Esterase Ur 2+ LEU/UL (Negative); Nitrate Urine Negative (Negative); Non Pathogenic Casts 0-2; Protein Urine Negative (Negative); RBC Urine 0-2 /hpf (0-2); Specific Grav Ur 1.009 (1.001-1.035); Squamous Epithelial Cell Urine None Seen /hpf (Few); Urobilinogen Urine 0.2 mg/dL (<2.0); WBC Urine 21-50 /hpf (0-3)
[2023-09-02 11:59] LABS: Add Urine Microscopic? YES
== END 2023-09-02 11:25 | disposition home or self-care (01) ==
LOC: ANHLAB 11:25
PROVIDERS: PCP Internal Medicine; Visit Provider Nurse Practitioner
DX: R30.0 Dysuria (principal)
CPT/HCPCS: 81001; 87086

== ENCOUNTER 2024-07-13 14:21 | Outpatient (CLI) | payer BC, SELFPAY ==
--- OUTSIDE RECORDS SUMMARY | 2024-07-13 14:23 | XMS_ITS | Clinical Summary ---
Author Organization [facility] Address [address] [address] Phone Care Team Providers Care Corrugated Sheet Material Sheeter Name Role Phone Angel Aj DO Primary Care Provider eWndy Blackburn APRN Unavailable [phone] Caridad Rivera MD Unavailable [phone] Allergies Active Allergy Reactions Criticality Noted Date Comments Hydrochlorothiazide Other (see Comments),Nausea Low 10/04/2018 hyponatremia Lisinopril Other (see Comments) Low 12/30/2016 Sulfa Antibiotics Unknown Medium 09/08/2018 As a child. Medications Calcium Carb-Cholecalc iferol 600-1000 MG-UNIT Capsule Take 2 Capsules by mouth. Active calcium carbonate-gio min D 600-400 MG-UNIT Tablet Take 2 Tablets by mouth. Active Diclofenac Sodium (VOLTAREN) 1 % Gel APPLY 2 GRAMS APPLY TO AFFECTED AREA 4 TIMES A DAY FOR OSTEOARTHRITIS 0 Active apixaban (Eliquis) 5 MG Tablet Eliquis 5 mg tablet TAKE 1 TABLET BY MOUTH TWICE DAILY FOR ANTICOAGULANT TO PREVENT BLOOD CLOTS AND STROKE 1 Active ferrous sulfate 325 (65 Fe) MG Tablet ferrous sulfate 325 mg (65 mg iron) tablet TAKE 1 TABLET BY MOUTH EVERY DAY 9 Active flecainide (TAMBOCOR) 50 MG Tablet flecainide 50 mg tablet TAKE 1 TABLET BY MOUTH TWICE A DAY 0 Active fluticasone (Flonase) 50 MCG/ACT Suspension inhale 2 spray by intranasal route every day in each nostril 6 Active metoprolol Succinate (TOPROL-XL) 25 MG TABLET SR 24 HR metoprolol succinate ER 25 mg tablet,extended release 24 hr TAKE 1/2 TABLET BY MOUTH EVERY DAY 0 Active Multiple Vitamin (Daily-Grisel) Tablet Take 1 Tablet by mouth. Active omeprazole (PriLOSEC) 20 MG CAPSULE DELAYED RELEASE omeprazole 20 mg capsule,delayed release TAKE 1 CAPSULE BY MOUTH EVERY DAY Active Rizatriptan Benzoate 10 MG Tablet 10 mg. 5 Active senna-docusate (SENOKOT S) 8.6-50 MG Tablet Senna Plus 8.6 mg-50 mg tablet TAKE 1-2 TABLETS BY MOUTH TWICE A DAY 9 Active tolterodine (DETROL-LA) 2 MG CAPSULE SR 24 HR tolterodine ER 2 mg capsule,extended release 24 hr TAKE 1 CAPSULE BY MOUTH EVERY DAY Active valsartan (DIOVAN) 40 MG Tablet valsartan 40 mg tablet TAKE 1 TABLET BY MOUTH EVERY DAY 0 Active acetaminophen (TYLENOL) 650 MG Tablet Controlled Release 650 mg. 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 Immunizations Immunization Administration Dates Next Due Covid-19, Mrna, Lnp-s, Pf, 3 0 Mcg/0.3 Ml Dose (The Society) 04/24/2020 Influenza, high-dose, trivalent, PF 10/0 08/2018,11/06/2017,10/17/2016,2015,11/06/2013 Family History Medical History Relation Name Comments Asthma Father Relation Name Status Comments Father Social History Tobacco Use Types Packs/Day Years Used Date Smoking Tobacco: Never Smokeless Tobacco: Never Tobacco Cessation:Counseling Given: No Alcohol Use Standard Drinks/Week Comments Yes 0 (1 standard drink = 0.6 oz pur e alcohol) RARELY Sexually Active Control Partners Comments Yes Comments Unknown Sex and Gender Information Value Date Recorded Sex Assigned at Not on file Legal Sex Female 9:25 PM CDT Gender Identity Not on file Sexual Orientation Not on file Last Filed Vital Signs Vital Sign Reading Time Taken Comments Blood Pressure 124/70 05/02/2020 2:27 PM CDT Pulse 60 05/02/2020 2:27 PM CDT Temperature 36 C (96.8 F) 05/02/2020 2:27 PM CDT Respiratory Rate 18 05/02/2020 2:27 PM CDT Oxygen Saturation 98% 05/02/2020 2:27 PM CDT Inhaled Oxygen Concentration - - Weight 84.4 kg (186 lb) 05/02/2020 2:27 PM CDT Height 167.6 cm (5' 6) 05/02/2020 2:27 PM CDT Body Mass Index 30.02 05/02/2020 2:27 PM CDT Plan of Treatment Health Maintenance Due Date Last Done Comments Hepatitis C Virus (HCV) Screening 1945 TdaP Immunization 1945 Pneumococcal Immunization (50+ years) (1 of 1 - PCV) 05/13/1997 Zoster Immunization (1 of 2) 05/13/1997 Respiratory Syncytial Virus (RSV) Immunization (Adult) (1 - 1-dose 75+ series) 05/13/2022 Influenza Immunization (#1) 10/17/2023/0 08/2018, 11/06/2017, 10/17/2016, Additional history exists SARS-COV-2 Immunization ( season) 2023 11/12/2020, 05/15/2020, 04/24/2020 Colonoscopy High Risk Discontinued 06/03/2020 Colonoscopy Discontinued 06/03/2020 Colorectal Cancer Screening Discontinued Cologuard Discontinued Hepatitis B Immunization Aged Out No longer eligible based on patient's age to complete this topic Immunochemical Fecal Occult Blood Discontinued Meningococcal Immunization (ACWY) Aged Out No longer eligible based on patient's age to complete this topic Rotavirus Immunization Aged Out No lo nger eligible based on patient's age to complete this topic Procedures Procedure Name Priority Date/Time Associated Diagnosis Comments COLONOSCOPY Routine 06/03/2020 from Last 3 Months or Most Recently Relevant to Health Maintenance Results * COLONOSCOPY (06/03/2020) Benjamin Negron DO PROCEDURE/MINOR SURGICAL ORDERA BLES Final Result from Last 3 Months or Most Recently Relevant to Health Maintenance Insurance [facility] Care Teams Corrugated Sheet Material Sheeter Relationship Specialty Start Date End Date Angel Aj DO [id number] [facility] [place] [address] PCP - General Internal Medicine 03/09/19 Wendy Blackburn APRN [id number] [facility] [place] [address] Pain Medicine-Pain Management 03/09/19 Caridad Rivera MD [address] [place] [address] Cardiology 05/07/20
--- OUTSIDE RECORDS SUMMARY | 2024-07-13 14:23 | XMS_ITS | Clinical Summary ---
Author Organization [facility] [address] [facility] [address] Address [address] [place] [address] Care Team Providers Care Manager Risk Management Name Role Phone Angel Aj DO Primary Care Provider [phone] Allergies Active Allergy Reactions Criticality Noted Date Comments Hydrochlorothiazide Dizziness,Nausea only Low 10/04/2018 hyponatremia Lisinopril Cough Low 12/30/2016 Sulfa (Sulfonamide Antibiotics) Unknown Medium As a child. Vibegron Rash,Other (See comments) Medium 2022 Rash and swelling Medications omeprazole 20 mg tablet,delayed release (DR/EC) 1 tablet daily 0 0 5 Active acetaminophen ER (TYLENOL) 650 mg 8 hr tablet take 1 Tablet by oral route every 4 hours as needed 0 0 5 Active multivitamin capsule take 1 capsule by oral route every day 0 0 5 Active fluticasone (FLONASE ALLERGY RELIEF) 50 mcg/actuation nasal spray inhale 2 spray by intranasal route every day in each nostril 0 spray 0 6 Active L. gasseri-B. bifidum-B longum 1.5 billion cell capsule Take by mouth daily. Active cholecalciferol (VITAMIN D-3) 2,000 unit capsule 1 capsule (2,000 Units total) daily Active calcium carbonate-vitami n D3 600mg (1,500mg) -1,000 unit capsule Take 2 capsules by mouth daily. Active senna-docusate (SENNA-S) 8.6-50 mg Take 1-2 tablets by mouth 2 (two) times a day 40 tablet 9 Active diclofenac sodium (VOLTAREN) 1 % gel diclofenac 1 % topical gel Active azelastine (ASTELIN) 137 mcg (0.1 %) nasal spray 137 MCG (0.137 ML) INTRANASALLY EVERY 12 HOURS ADMINISTER INTO EACH NOSTRIL 4 Active cetirizine (ZyrTEC) 10 mg tablet Take 1 tablet (10 mg total) by mouth daily 4 Active Eliquis 5 mg tablet TAKE 1 TABLET BY MOUTH TWICE DAILY TO PREVENT BLOOD CLOTS AND STROKE 180 tablet 3 4 Active AMILoride (MIDAMOR) 5 mg tabletIndication s:Edema of both lower extremities TAKE 1 TABLET BY MOUTH EVERY DAY 90 tablet 3 5 Active flecainide (TAMBOCOR) 50 mg tablet Take 1 tablet (50 mg total) by mouth 2 (two) times a day 180 tablet 3 5 Active metoprolol XL (TOPROL-XL) 25 mg extended release tabletIndication s:Paroxysmal atrial fibrillation (HCC) Take 0.5 tablets (12.5 mg total) by mouth daily 45 tablet 3 5 Active valsartan (DIOVAN) 40 mg tablet Take 1 tablet (40 mg total) by mouth daily 90 tablet 3 5 Active Active Problems Problem Noted Date Diagnosed Date H/O cardiomyopathy 01/18/2022 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 Edema of both lower extremities 06/10/2020 Hyponatremia 06/10/2020 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 ELDA (obstructive sleep apnea) 05/30/2019 Acquired trigger finger 12/01/2018 Enthesopathy of hip region 12/01/2018 Injury of lower extremity 12/01/2018 Osteoarthritis of knee 12/01/2018 Primary localized osteoarthrosis of hand 019 Radiotherapy follow-up 12/01/2018 Trochanteric bursitis of left hip 12/01/2018 Overview (12/01/2018): Added automatically from request for surgery [id number] Tear of left gluteus medius tendon 12/01/2018 Overview (12/01/2018): Added automatically from request for surgery [id number] Mixed hyperlipidemia 04/05/2018 Paroxysmal atrial fibrillation 10/08/2016 Therapeutic drug monitoring 10/08/2016 Essential hypertension 03/30/2016 Overview (05/21/2016): Essential hypertension Chronic anticoagulation 12/20/2015 Overview (05/21/2016): Chronic anticoagulation Resolved Problems Problem Noted Date Diagnosed Date Resolved Date Orthostasis 01/18/2022 01/18/2022 Cardiomyopathy 10/08/2016 04/14/2024 Encounters Date Type Department Care Team Description 06/08/2024 Results Follow-Up [facility] Cardiology [address] [place] [address] [place] [phone] Sonya Pardo MD Extended/Shelter Holter Patch (>48 hours up to 7 days) 05/19/2024 2:30 PM CDT Ancillary Procedure [facility] Cardiology [address] [place] [address] [place] [phone] 05/17/2024 Telephone [facility] Cardiology [address] [place] [phone] Sonya Pardo MD 04/14/2024 10:45 AM DIAMOND DIE POLISHER Office Visit [facility] Cardiology [address] [place] [phone] Sonya Pardo MD Paroxysmal atrial fibrillation (HCC) (Primary Dx); Chronic anticoagulation; Essential hypertension; Mixed hyperlipidemia; H/O cardiomyopathy; 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; Edema of both lower extremities from Last 3 Months Immunizations Immunization Administration Dates Next Due Influenza, Quadrivalent, Hig h Dose, Preservative Free, Intrr 10/01/2019 Pfizer SARS-CoV-2 Monovalent Vaccination (12+ Yrs) PURPLE 04/24/2020 Surgical History Surgery Date Site/Laterality Comments CATARACT EXTRACTION 02/15/2013 - 02/14/2014 Bilateral Cataract extraction JOINT REPLACEMENT FOOT SURGERY 08/15/2018 - 09/14/2018 Left 1 --cyst from toes and 1-toe straightened THUMB SURGERY 02/15/2017 - 02/14/2018 Right thumb REPLACEMENT TOTAL KNEE 02/15/2014 - 02/14/2015 Right right --2007 Left 2017 RETINAL DETACHMENT SURGERY 01/15/2015 - 02/14/2015 BASAL CELL CARCINOMA EXCISION 12/13/2018 Right pires KNEE ARTHROSCOPY W/ MENISCAL REPAIR 02/15/1998 - 02/14/1999 Left TUBAL LIGATION 02/15/1978 - 02/14/1979 Bilateral KNEE ARTHROSCOPY W/ LATERAL RELEASE CATARACT EXTRACTION 02/15/2013 - 02/14/2014 Medical History Medical History Date Comments Hx Other Medical left knee arthr oscopic surgery; Comments: SERG 06/28/2014 - Migraines none x >1 year Osteoporosis just has start o f osteopenia. To combat it with weight bearing exercisesand Vitamin D Arthritis osteoarthritis Seasonal allergies Sleep apnea recently diagnos ed--just started using C-PAP nightly Atrial fibrillation (HCC) has be en in NSR/SB for >3 years Hypertension fair control wit h meds Motion sickness Cancer (HCC) skin--basal cell --right forearm and pires Fatigue PONV (postoperative nausea a nd vomiting) Anemia 11/2017 Cataract Family History Medical History Relation Name Comments Car Accident Father Car Accident; C ause of : Car Accident Alzheimer's disease Mother Riya Alzheime r's disease; Arthritis Mother Riya Heart attack Mother's Brother 1 Harjit Heart attack Mother's Brother 2 Harjit Vision loss Mother's Sister 1 Linda Vision loss Mother's Sister 2 [place] Relation Name Status Comments Father Mother Riya Mother's Brother 1 Harjit Mother's Brother 2 Harjit Alive Mother's Sister 1 [place] Mother's Sister 2 Linda Alive Social History Tobacco Use Types Packs/Day Years Used Date Smoking Tobacco: Never Smokeless Tobacco: Never Tobacco Cessation:Counseling Given: Not Answered Alcohol Use Standard Drinks/Week Comments Yes 0 (1 standard drink = 0.6 oz pur e alcohol) rare--1x/year Comments No Sex and Gender Information Value Date Recorded Sex Assigned at Not on file Legal Sex Female 3:40 AM DIAMOND DIE POLISHER Gender Identity Female 05/24/2019 10:21 AM CDT Sexual Orientation Not on file Occupation Industry Job Start Date Job End Date Retired Not on file Not on file Not on file Obstetrics History Last Filed Vital Signs Vital Sign Reading Time Taken Comments Blood Pressure 122/76 04/14/2024 10:35 AM DIAMOND DIE POLISHER Pulse 70 04/14/2024 10:35 AM DIAMOND DIE POLISHER Temperature 36.4 C (97.5 F) 12/20/2018 4:00 PM DIAMOND DIE POLISHER Respiratory Rate 16 12/20/2018 4:00 PM DIAMOND DIE POLISHER Oxygen Saturation 98% 04/14/2024 10:35 AM DIAMOND DIE POLISHER Inhaled Oxygen Concentration - - Weight 79.8 kg (176 lb) 04/14/2024 10:35 AM DIAMOND DIE POLISHER Height 167.6 cm (5' 6) 04/14/2024 10:35 AM DIAMOND DIE POLISHER Body Mass Index 28.41 04/14/2024 10:35 AM DIAMOND DIE POLISHER Plan of Treatment Health Maintenance Due Date Last Done Comments Depression Screening 1945 Fall Risk Assessment 1945 Hepatitis C Screening 1945 Osteoporosis Screening-Bone Density Scan 1945 DTaP/Tdap/Td Vaccine (1 - Tdap) 05/13/1958 Hepatitis B Screening 05/13/1965 Pneumococcal vaccine 65+ (1 of 1 - PCV) 05/13/1997 Zoster Vaccine (1 of 2) 05/13/1997 Well Visit 65+ 05/13/2012 Covid-19 Vaccine (2 - season) 10/17/202311/2020 Influenza Vaccine Completed 10/15/2023, 10/01/2019 Medical Devices Implanted Type Area Charge Nurse Device Identifier Shelf Expiration Date Model / Serial / Lot [employer] [id number] Swivelock C Fibertak Tigertail 4.75mm 22mm 2 Load 2 Moncure Suture - [id number] Implanted:Qty: 1 on 12/20/2018 by Smita Ochoa MD at [facility] [place] Left: Buttocks [employer] 08/14/2020 AR-[id number] -2 / / [id number] [employer] [id number] Swivelock C Fibertak Tigertail 4.75mm 22mm 2 Load 2 Moncure Suture - [id number] Implanted:Qty: 1 on 12/20/2018 by Smita Ochoa MD at [facility] [place] Left: Buttocks [employer] 02/15/2020 AR-2324BCT -2 / / [id number] Lifenet [id number] Matracell Arthroflex [id number] Decellularize Thk2mm Graft Soft - [id number] - [id number] Implanted:Qty: 1 on 12/20/2018 by Smita Ochoa MD at [facility] [place] Left: Buttocks Lifenet 08/24/2021 [id number] / [id number] / [employer] [id number] Swivelock C 4.75mm 19.1mm Closed Eyelet Vent Moncure Suture - [id number] Implanted:Qty: 1 on 12/20/2018 by Smita Ochoa MD at [facility] [place] Left: Buttocks [employer] 10/15/2020 AR-2324BCC / / [id number] [employer] [id number] Swivelock C Fibertak Tigertail 4.75mm 22mm 2 Load 2 Moncure Suture - [id number] Implanted:Qty: 1 on 12/20/2018 by Smita Ochoa MD at [facility] [place] Left: Buttocks [employer] AR-2324BCT -2 / / [id number] Procedures Procedure Name Priority Date/Time Associated Diagnosis Comments EXTENDED/USP HOLTER PATCH (>48 HOURS UP TO 7 DAYS) Routine 05/19/2024 2:09 PM CDT Paroxysmal atrial fibrillation (HCC) from Last 3 Months Results * Extended/Shelter Holter Patch (>48 hours up to 7 days) (05/19/2024 2:09 PM CDT) Anatomical Region Laterality Modality Electrocardiogra phy Narrative 06/07/2024 3:27 PM CDT AMBULATORY LITIGATION ASSOCIATE REPORT Patient Name: Sue Colbert Date of : 1945 Requesting Physician: Dr. Pardo Date of interpretation: 06/07/24 Type of monitor : one-week event monitor Date of the study/Enrollment period: 05/19/2024- 05/26/2024 Indication: paroxysmal atrial fibrillation Quality of the study: adequate Interpretation: predominant underlying rhythm is sinus rhythm, heart rate ranges between 49 beats per minute to 148 beats per minute, average heart rate 70 beats per minute. QRS duration within normal limits. Peaked T-waves were noted in some rhythm strips. One brief episode of 11 beat supraventricular tachycardia at a heart rate of 148 beats per minute was noted. Occasional supraventricular ectopy, burden of 1%; occasional ventricular ectopy with a burden of less than 1% for the duration of the study. No atrial fibrillation was noted. Patient reported 1 episode of rapid/fast heartbeat which correlated with sinus rhythm at a heart rate of 65 beats per minute. Conclusions: Predominant underlying rhythm is sinus rhythm, average heart rate 70 beats per minute. Occasional PACs and PVCs; one brief episode of supraventricular tachycardia at a heart rate of 148 beats per minute. No atrial fibrillation was noted. Patient reported symptom of rapid/fast heartbeat which correlated with sinus rhythm. Voice recognition software was used to complete this document, therefore, shrimp cleaner variances may occur. Dorian Ball MD, [facility] 06/07/24 [facility] Ivory Pardo MD CV CARDIAC SERVICES PRO CEDURES Final Result from Last 3 Months Insurance MEDICARE [facility] FEDERAL [facility] FED[facility] Care Teams Manager Risk Management Relationship Specialty Start Date End Date Angel Aj DO [facility] - General 05/15/16
--- OUTSIDE RECORDS SUMMARY | 2024-07-13 14:23 | XMS_ITS | Encounter Summary ---
Author Organization [facility] Address [address] [facility] [place] [address] Care Team Providers Care Facilitator Name Role Phone Unavailable Primary Care Provider Unavailabl e Encounter Details Date Type Department Care Team (Late st Contact Info) Description 12/14/2018 Lab Requisition [facility] Lab [address] [facility] [place] [address] Madelin Cueva MD [address] [facility] 3 [place] [address] Social History Tobacco Use Types Packs/Day Years Used Date Smoking Tobacco: Never Assessed Comments Unknown Sex and Gender Information Value Date Recorded Sex Assigned at Not on file Legal Sex Female 6:14 PM [employer] Gender Identity Not on file Sexual Orientation Not on file documented as of this encounter Plan of Treatment Not on file documented as of this encounter Procedures Procedure Name Priority Date/Time Associated Diagnosis Comments DERMATOPATHOLOGY Routine 12/13/2018 12:0 0 AM CDT documented in this encounter Results * DERMATOPATHOLOGY (12/13/2018 12:00 AM CDT) Case Report Dermatopathology Report Case: [id number] Authorizing Provider: Madelin Cueva MD Collected: 12/13/2018 12:00 AM Ordering Location: [facility] Received: 12/14/2018 07:00 AM Pathologist: Yashira Black MD Specimen: Skin, right pires 9 2:02 PM CDT DERMATOPATHOLOGY LABORATORY Final Diagnosis Specimen A. SKIN, right pires: DERMAL SCAR RESIDUAL BASAL CELL CARCINOMA NOT IDENTIFIED (L90.5) 9 2:02 PM CDT DERMATOPATHOLOGY LABORATORY at 1402 CDT Clinical History Bx proven BCC. Previous Bx: [id number]. 2:02 PM CDT DERMATOPATHOLOGY LABORATORY Gross Description Specimen A: Received is one formalin filled container labeled with the patient's name and designated right pires. The specimen consists of a non-oriented ellipse of skin measuring [id number]. The epidermal surface consists of a centrally located 99t05bi previous biopsy site. The margin is inked green. The 12 o'clock and 6 o'clock tips are submitted in cassette 1. The remainder of the ellipse is serially sectioned and submitted in cassettes 2-4. Jar 0. 2:02 PM CDT DERMATOPATHOLOGY LABORATORY Microscopic Description Specimen A. SKIN, right pires: There are fibroblasts and collagen bundles oriented parallel to the skin surface. There are elongated blood vessels, some of which are oriented perpendicular to the skin surface. No basal cell carcinoma is identified. 2:02 PM CDT DERMATOPATHOLOGY LABORATORY Disclaimer An external and internal positive and negative controls are appropriate for the histochemical, immunohistochemical and immunofluorescence stain(s) in this case (if any), except where stated explicitly. The performance characteristics of the stain(s) cited in this report were developed and its performance characteristic determined by the Dermatopathology Laboratory at [facility], directed by Dr. Jaz Black. These tests need not be, and therefore are not, approved by the [place] Food and Drug Administration. The tests are used for clinical purposes. Billing Codes Specimen Charges Stain Charges 70661 1 2:02 PM CDT DERMATOPATHOLOGY LABORATORY Embedded Images 2:02 PM CDT DERMATOPATHOLOGY LABORATORY Pathology/Cytolog y TISSUE SPECIMEN FROM SKIN / Unknown 12/13/2018 12/14/2018 7:00 AM CDT us Madelin Cueva MD LAB - PATHOLOGY/CYTOLOGY OR DERABLES Final Result DERMATOPATHOLOGY LABORATORY [facility] - Department of Dermatology [address] [place] [address], 5th [place] [address], [facility] [phone] documented in this encounter Visit Diagnoses Not on filedocumented in this encounter
--- OUTSIDE RECORDS SUMMARY | 2024-07-13 14:23 | XMS_ITS | Encounter Summary ---
Author Organization [facility] Address [address] [facility] [place] [address] Care Team Providers Care Vehicle Detailer Name Role Phone Unavailable Primary Care Provider Unavailabl e Encounter Details Date Type Department Care Team (Late st Contact Info) Description 11/23/2018 Lab Requisition [facility] D[facility] Lab [address] [facility], [place] [address] Madelin Cueva MD [address] [facility] 3 DEPT [place] [address] Social History Tobacco Use Types Packs/Day Years Used Date Smoking Tobacco: Never Assessed Comments Unknown Sex and Gender Information Value Date Recorded Sex Assigned at Not on file Legal Sex Female 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 Gender Identity Not on file Sexual Orientation Not on file documented as of this encounter Plan of Treatment Not on file documented as of this encounter Procedures Procedure Name Priority Date/Time Associated Diagnosis Comments DERMATOPATHOLOGY Routine 11/22/2018 12:0 0 AM CDT documented in this encounter Results * DERMATOPATHOLOGY (11/22/2018 12:00 AM CDT) Case Report Dermatopathology Report Case: [id number] Authorizing Provider: Madelin Cueva MD Collected: 11/22/2018 12:00 AM Ordering Location: [facility] Lab Received: 11/23/2018 06:48 AM Pathologist: Yashira Black MD Specimen: Skin, right pires 9 4:37 PM CDT DERMATOPATHOLOGY LABORATORY Final Diagnosis Specimen A. SKIN, right pires: BASAL CELL CARCINOMA, INFILTRATIVE PATTERN (C44.712) PRESENT AT MARGIN 9 4:37 PM CDT DERMATOPATHOLOGY LABORATORY at 1637 CDT Clinical History R/O BCC, irritated. Check margins. 4:37 PM CDT DERMATOPATHOLOGY LABORATORY Gross Description Specimen A: Received is one formalin filled container labeled with the patient's name and designated right pires. The specimen consists of a shave (2 pieces) measuring [id number] & 0f2b1db. Jar 0. 4:37 PM CDT DERMATOPATHOLOGY LABORATORY Microscopic Description Specimen A. SKIN, right pires: Within the dermis there are nodular aggregates of basaloid cells associated with fibromyxoid stroma and epithelial-stromal clefts. At the advancing margin of the neoplasm, there are smaller angulated nests that infiltrate the dermis. This lesion is present at the margin of the specimen. 4:37 PM CDT DERMATOPATHOLOGY LABORATORY Disclaimer An external and internal positive and negative controls are appropriate for the histochemical, immunohistochemical and immunofluorescence stain(s) in this case (if any), except where stated explicitly. The performance characteristics of the stain(s) cited in this report were developed and its performance characteristic determined by the Dermatopathology Laboratory at [facility], directed by Dr. Jaz Black. These tests need not be, and therefore are not, approved by the [place] Food and Drug Administration. The tests are used for clinical purposes. Billing Codes Specimen Charges Stain Charges 95957 1 4:37 PM CDT DERMATOPATHOLOGY LABORATORY Embedded Images 4:37 PM CDT DERMATOPATHOLOGY LABORATORY Pathology/Cytolog y TISSUE SPECIMEN FROM SKIN / Unknown 11/22/2018 11/23/2018 6:48 AM CDT us Madelin Cueva MD LAB - PATHOLOGY/CYTOLOGY OR DERABLES Final Result DERMATOPATHOLOGY LABORATORY [facility] - Department of Dermatology [facility] [facility], 5th [place] [address], [facility] [phone] documented in this encounter Visit Diagnoses Not on filedocumented in this encounter
--- OUTSIDE RECORDS SUMMARY | 2024-07-13 14:23 | XMS_ITS | Encounter Summary ---
Author Organization [facility] Address [address] [place] [address] Care Team Providers Care Manager Civil Name Role Phone Unavailable Primary Care Provider Unavailabl e Encounter Details Date Type Department Care Team (Late st Contact Info) Description 10/21/2022 Lab Requisition [facility] - DermPath Lab [address] [facility] [place] [address] Zahira Andrews MD [address] [facility] 3 [place] [address] Social History Tobacco Use Types Packs/Day Years Used Date Smoking Tobacco: Never Assessed Comments Unknown Sex and Gender Information Value Date Recorded Sex Assigned at Not on file Legal Sex Female 6:14 PM CHIEF PSYCHOLOGY Gender Identity Not on file Sexual Orientation Not on file documented as of this encounter Plan of Treatment Not on file documented as of this encounter Procedures Procedure Name Priority Date/Time Associated Diagnosis Comments DERMATOPATHOLOGY Routine 10/21/2022 11:1 7 AM CDT documented in this encounter Results * DERMATOPATHOLOGY (10/21/2022 11:17 AM CDT) Case Report Dermatopathology Report Case: [id number] Authorizing Provider: Zahira Andrews MD Collected: 10/21/2022 11:17 AM Ordering Location: [facility] DermPath Lab Received: 10/21/2022 04:49 PM Pathologist: Belen Emerson MD Specimens: A) - Skin, right arm B) - Skin, left foot 11:30 AM CDT DERMATOPATHOLOGY LABORATORY Final Diagnosis Specimen A. SKIN, right arm: BENIGN VERRUCOUS KERATOSIS (L82.1) Specimen B. SKIN, left foot: BENIGN VERRUCOUS KERATOSIS (L82.1) 11:30 AM CDT DERMATOPATHOLOGY LABORATORY at 1130 CDT Clinical History A-B: PINK CRUSTED PAPULE SCC VS VV 11:30 AM CDT DERMATOPATHOLOGY LABORATORY Gross Description Specimen A: Received is one formalin filled container labeled with the patient's name and designated right arm. The specimen consists of a shave biopsy measuring 8x8x3 mm. Jar 0. Specimen B: Received is one formalin filled container labeled with the patient's name and designated left foot. The specimen consists of a shave biopsy measuring 8x8x3 mm. Jar 0. 3 11:30 AM T DERMATOPATHOLOGY LABORATORY Microscopic Description Specimen A. SKIN, right arm: Sections show hyperkeratosis, papillomatosis, hypergranulosis, and acanthosis. These histological findings can be seen in a verruca vulgaris or a seborrheic keratosis. Specimen B. SKIN, left foot: Sections show hyperkeratosis, papillomatosis, hypergranulosis, and acanthosis. These histological findings can be seen in a verruca vulgaris or a seborrheic keratosis. 11:30 AM T DERMATOPATHOLOGY LABORATORY Disclaimer An external and internal positive and negative controls are appropriate for the histochemical, immunohistochemical and immunofluorescence stain(s) in this case (if any), except where stated explicitly. The performance characteristics of the stain(s) cited in this report were developed and its performance characteristic determined by the Dermatopathology Laboratory at [facility], directed by Dr. Jaz Black. These tests need not be, and therefore are not, approved by the [place] Food and Drug Administration. The tests are used for clinical purposes. Billing Codes Specimen Charges Stain Charges 89996 91088 1 1 3 11:30 AM CDT DERMATOPATHOLOGY LABORATORY Embedded Images 3 11:30 AM CDT DERMATOPATHOLOGY LABORATORY Pathology/Cytology TISSUE SPECIMEN FROM SKIN / Unknown 10/21/2022 11:17 AM CDT 10/21/2022 4:49 PM CDT Miscellaneous samples (specimen) TISSUE SPECIMEN FROM SKIN / Unknown 10/21/2022 11:17 AM CDT 10/21/2022 4:49 PM CDT us Zahira Andrews MD LAB - PATHOLOGY/CYTOLOGY ORD ERABLES Final Result DERMATOPATHOLOGY LABORATORY [facility] - Department of Dermatology [facility] Medicine [address] [place] [address], [address] [phone] documented in this encounter Visit Diagnoses Not on filedocumented in this encounter
--- OUTSIDE RECORDS SUMMARY | 2024-07-13 14:23 | XMS_ITS | Encounter Summary ---
Author Organization [facility] Address [address] [place] [place] [address] Care Team Providers Care Campus Safety Officer Name Role Phone Unavailable Primary Care Provider Unavailabl e Encounter Details Date Type Department Care Team (Late st Contact Info) Description 03/24/2023 Lab Requisition [facility] - DermPath Lab [address] [facility], [place] [address] Zahira Andrews MD [address] [facility] 3 [place] [address] Social History Tobacco Use Types Packs/Day Years Used Date Smoking Tobacco: Never Assessed Comments Unknown Sex and Gender Information Value Date Recorded Sex Assigned at Not on file Legal Sex Female 6:14 PM RN TELE Gender Identity Not on file Sexual Orientation Not on file documented as of this encounter Plan of Treatment Not on file documented as of this encounter Procedures Procedure Name Priority Date/Time Associated Diagnosis Comments DERMATOPATHOLOGY Routine 03/24/2023 3:05 PM RN TELE documented in this encounter Results * DERMATOPATHOLOGY (03/24/2023 3:05 PM RN TELE) Case Report Dermatopathology Report Case: [id number] Authorizing Provider: Zahira Andrews MD Collected: 03/24/2023 03:05 PM Ordering Location: [facility] DermPath Lab Received: 03/25/2023 01:52 PM Pathologist: Belen Emerson MD Specimen: Skin, right shoulder 4 12:29 PM RN TELE DERMATOPATHOLOGY LABORATORY Final Diagnosis Specimen A. 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 The specimen consists of a non-oriented ellipse of skin measuring 42c31j5 mm. Also, there a lesion 5x4 mm. The margin is inked green. The 12 o'clock and 6 o'clock tips are submitted in cassette 1. The remainder of the ellipse is serially sectioned and submitted in cassette 2 - 3. Jar 0. 4 12:29 PM [facility] DERMATOPATHOLOGY LABORATORY Microscopic Description Specimen A. SKIN, right shoulder: There are fibroblasts and collagen bundles oriented parallel to the skin surface. There are elongated blood vessels, some of which are oriented perpendicular to the skin surface. No residual squamous cell carcinoma is identified. 4 12:29 PM [facility] DERMATOPATHOLOGY LABORATORY Disclaimer An external and internal positive and negative controls are appropriate for the histochemical, immunohistochemical and immunofluorescence stain(s) in this case (if any), except where stated explicitly. The performance characteristics of the stain(s) cited in this report were developed and its performance characteristic determined by the Dermatopathology Laboratory at [facility], directed by Dr. Jaz Black. These tests need not be, and therefore are not, approved by the [place] Food and Drug Administration. The tests are used for clinical purposes. Billing Codes Specimen Charges Stain Charges 90672 1 4 12:29 PM [facility] DERMATOPATHOLOGY LABORATORY Embedded Images 4 12:29 PM [facility] DERMATOPATHOLOGY LABORATORY Pathology/Cytolo gy TISSUE SPECIMEN FROM SKIN / Unknown 03/24/2023 3:05 PM RN TELE 03/25/2023 1:52 PM [facility] us Zahira Andrews MD LAB - PATHOLOGY/CYTOLOGY ORD ERABLES Final Result DERMATOPATHOLOGY LABORATORY [facility] - Department of Dermatology [address] [place] [address], [facility] [phone] documented in this encounter Visit Diagnoses Not on filedocumented in this encounter
--- OUTSIDE RECORDS SUMMARY | 2024-07-13 14:23 | XMS_ITS | Referral Summary ---
Author Organization [place] [address] Address [address] [place] [address] [address] [place] [address] Care Team Providers Care Overlock Hemmer Name Role Phone Angel Aj DO Primary Care Provider +1- [phone] Encounters Date Type Department Care Team Description 06/08/2024 Results Follow-Up [facility] Cardiology [address] [place] [address] [address] [place] [address] Sonya Pardo MD Extended/Penitentiary Holter Patch (>48 hours up to 7 days) 05/19/2024 2:30 PM CDT Ancillary Procedure [facility] Cardiology [address] [place] [address] [address] [place] [address] 05/17/2024 Telephone [facility] Cardiology [address] [place] [address] [address] [place] [address] Sonya Pardo MD 04/14/2024 10:45 AM WEB DEVELOPMENT DIRECTOR Office Visit [facility] Cardiology [address] [place] [address] [address] [place] [address] Sonya Pardo MD Paroxysmal atrial fibrillation (HCC) (Primary Dx); Chronic anticoagulation; Essential hypertension; Mixed hyperlipidemia; H/O cardiomyopathy; [facility] current use 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 drug; Edema of both lower extremities from Last 3 Months Allergies Active Allergy Reactions Criticality Noted Date [...] Noted Date Diagnosed Date H/O cardiomyopathy 01/18/2022 [facility] current use 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 drug Edema of both lower extremities 06/10/2020 Hyponatremia 06/10/2020 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 ELDA (obstructive sleep apnea) 05/30/2019 Acquired trigger finger 12/01/2018 Enthesopathy of hip region 12/01/2018 Injury of lower extremity 12/01/2018 Osteoarthritis of knee 12/01/2018 Primary localized osteoarthrosis of hand 019 Radiotherapy follow-up 12/01/2018 Trochanteric bursitis of left hip 12/01/2018 Overview (12/01/2018): Added automatically from request for surgery [id number] Tear of left gluteus medius tendon 12/01/2018 Overview (12/01/2018): Added automatically from request for surgery [id number] Mixed hyperlipidemia 04/05/2018 Paroxysmal atrial fibrillation 10/08/2016 Therapeutic drug monitoring 10/08/2016 Essential hypertension 03/30/2016 Overview (05/21/2016): Essential hypertension Chronic anticoagulation 12/20/2015 Overview (05/21/2016): Chronic anticoagulation Resolved Problems Problem Noted Date Diagnosed Date Resolved Date Orthostasis 01/18/2022 01/18/2022 Cardiomyopathy 10/08/2016 04/14/2024 Immunizations Immunization Administration Dates Next Due Influenza, Quadrivalent, Hig h Dose, Preservative Free, Intrr 10/01/2019 Pfizer SARS-CoV-2 Monovalent Vaccination (12+ Yrs) PURPLE 04/24/2020 Social History Tobacco Use Types Packs/Day Years Used Date Smoking Tobacco: Never Smokeless Tobacco: Never Tobacco Cessation:Counseling Given: Not Answered Alcohol Use Standard Drinks/Week Comments Yes 0 (1 standard drink = 0.6 oz pur e alcohol) rare--1x/year Comments No Sex and Gender Information Value Date Recorded Sex Assigned at Not on file Legal Sex Female 3:40 AM WEB DEVELOPMENT DIRECTOR Gender Identity Female 05/24/2019 10:21 AM CDT Sexual Orientation Not on file Occupation Industry Job Start Date Job End Date Retired Not on file Not on file Not on file Last Filed Vital Signs Vital Sign Reading Time Taken Comments Blood Pressure 122/76 04/14/2024 10:35 AM WEB DEVELOPMENT DIRECTOR Pulse 70 04/14/2024 10:35 AM WEB DEVELOPMENT DIRECTOR Temperature 36.4 C (97.5 F) 12/20/2018 4:00 PM WEB DEVELOPMENT DIRECTOR Respiratory Rate 16 12/20/2018 4:00 PM WEB DEVELOPMENT DIRECTOR Oxygen Saturation 98% 04/14/2024 10:35 AM WEB DEVELOPMENT DIRECTOR Inhaled Oxygen Concentration - - Weight 79.8 kg (176 lb) 04/14/2024 10:35 AM WEB DEVELOPMENT DIRECTOR Height 167.6 cm (5' 6) 04/14/2024 10:35 AM WEB DEVELOPMENT DIRECTOR Body Mass Index 28.41 04/14/2024 10:35 AM WEB DEVELOPMENT DIRECTOR Plan of Treatment Not on file Medical Devices Implanted Type Area Sales Development Associate Device Identifier Shelf Expiration Date Model / Serial / Lot [employer] [id number] Swivelock C Fibertak Tigertail 4.75mm 22mm 2 Load 2 [place] Suture - [id number] Implanted:Qty: 1 on 12/20/2018 by Smita Ochoa MD at [facility] [place] Left: Buttocks [employer] 08/14/2020 [id number] -2 / / [id number] [employer] [id number] Swivelock C Fibertak Tigertail 4.75mm 22mm 2 Load 2 [place] Suture - [id number] Implanted:Qty: 1 on 12/20/2018 by Smita Ochoa MD at [facility] [place] Left: Buttocks [employer] 02/15/2020 [id number]-[id number] -2 / / [id number] Lifenet [id number] Matracell Arthroflex [id number] Decellularize Thk2mm Graft Soft - [id number] - [id number] Implanted:Qty: 1 on 12/20/2018 by Smita Ochoa MD at [facility] [place] Left: Buttocks Lifenet 08/24/2021 [id number] / [id number] / Ar[employer] [id number] Swivelock C 4.75mm 19.1mm Closed Eyelet Vent [place] Suture - [id number] Implanted:Qty: 1 on 12/20/2018 by Smita Ochoa MD at [facility] [place] Left: Buttocks [employer] 10/15/2020 AR-[id number] / / [id number] [employer] [id number] Swivelock C Fibertak Tigertail 4.75mm 22mm 2 Load 2 [place] Suture - [id number] Implanted:Qty: 1 on 12/20/2018 by Smita cOhoa MD at [facility] [place] Left: Buttocks [employer] AR-[id number] -2 / / [id number] Procedures Procedure Name Priority Date/Time Associated Diagnosis Comments EXTENDED/INTERMEDIATE HOLTER PATCH (>48 HOURS UP TO 7 DAYS) Routine 05/19/2024 2:09 PM CDT Paroxysmal atrial fibrillation (HCC) from Last 3 Months Results * Extended/Penitentiary Holter Patch (>48 hours up to 7 days) (05/19/2024 2:09 PM CDT) Anatomical Region Laterality Modality Electrocardiogra phy Narrative 06/07/2024 3:27 PM CDT AMBULATORY BALL POINTS INSPECTOR REPORT Patient Name: Sue Colbert Date of [...] was used to complete this document, therefore, professor in family studies variances may occur. Dorian Ball MD, [facility] 06/07/24 [facility] Ivory Pardo MD CV CARDIAC SERVICES PRO CEDURES Final Result from Last 3 Months Insurance MEDICARE [facility] Care Teams Overlock Hemmer Relationship Specialty Start Date End Date Angel Aj DO PCP - General 05/15/16
--- OUTSIDE RECORDS SUMMARY | 2024-07-13 14:23 | XMS_ITS | Encounter Summary ---
Author Organization [facility] Address [address] [place] [address] Care Team Providers Care Central Office Mechanic Name Role Phone Angel Aj DO Primary Care Provider +1- [phone] Angel Aj DO Primary Care Provider +1- [phone] Encounter Details Date Type Department Care Team (Late st Contact Info) Description 04/08/2016 Orders Only [facility] ProviderNany MD [address] [place] [address] Social History Tobacco Use Types Packs/Day Years Used Date Smoking Tobacco: Never Alcohol Use Standard Drinks/Week Comments No 0 (1 standard drink = 0.6 oz pur e alcohol) Comments Unknown Sex and Gender Information Value Date Recorded Sex Assigned at Not on file Legal Sex Female 3:40 AM CORPORATE RECYCLING MANAGER Gender Identity Female 05/24/2019 10:21 AM CDT Sexual Orientation Not on file documented as of this encounter Plan of Treatment Not on file documented as of this encounter Procedures Procedure Name Priority Date/Time Associated Diagnosis Comments CARDIOLOGY REPORT 04/08/2016 documented in this encounter Results * CARDIOLOGY REPORT (04/08/2016) Anatomical Region Laterality Modality Other Narrative 04/08/2016 Ordered by an unspecified provider. Historical Provider [facility] C[facility] SERVICES INNA RASMUSSEN Final Result documented in this encounter Visit Diagnoses Not on filedocumented in this encounter Care Teams Central Office Mechanic Relationship Specialty Start Date End Date Angel Aj DO PCP - General 05/15/16 Angel Aj DO PCP - General 08/21/14 05/14/16 documented as of this encounter
--- OUTSIDE RECORDS SUMMARY | 2024-07-13 14:23 | XMS_ITS | Continuity of Care Document ---
Author Organization [facility] Address [address] [place] [address] [address] [place] [address] Phone Care Team Providers Care Cellophane Worker Name Role Phone Aminta Garg Unavailable Unavailable Procedures Procedure Date Eye Exam, New Patient Advance Directives Directive Yes / No Effective Date File Name No Information Encounters Encounter Description Practice Location Reason(s) For Visit Diagnoses Date Provider Providers Copied on Encounter [facility], [address], [place], [place], [id number], [place] tel:[phone] [facility] No Information 3-[address] Britany Lemos. [address] [place] , [address], [place], [address], [place]. tel:[phone] Family History Family Member Type Diagnosis Age [...]
--- OUTSIDE RECORDS SUMMARY | 2024-07-13 14:23 | XMS_ITS | Clinical Summary ---
Author Organization [facility] Address [address] [place] [address] Care Team Providers Care Crusher Name Role Phone Unavailable Primary Care Provider Unavailabl e Source Comments [facility],non-owned Affiliates and Associated Physician Practices is amultiple site organization consisting of ambulatory clinics and hospital sitesin [place], [place], [place] and [place]. This disclosure is being madepursuant to the Care Everywhere program and may not contain all information available regarding this patient. Last updated 17.[facility] [employer] Social History Tobacco Use Types Packs/Day Years Used Date Smoking Tobacco: Never Assessed Comments Unknown Sex and Gender Information Value Date Recorded Sex Assigned at Not on file Legal Sex Female 6:14 PM MARKETING AND OUTREACH COORDINATOR Gender Identity Not on file Sexual Orientation Not on file Plan of Treatment Health Maintenance Due Date Last Done Comments BONE DENSITY TESTING 1945 HEPATITIS C SCREENING 05/09/1965 DTAP/TDAP/TD VACCINES (1 - Tdap) 05/13/1966 PNEUMOCOCCAL VACCINE 50+ (1 of 1 - PCV) 05/13/1997 ZOSTER VACCINE (1 of 2) 05/13/1997 Respiratory Syncytial Virus (RSV) Vaccine Pt: or over 60 yrs (1 - 1-dose 75+ series) 05/13/2022 COVID-19 VACCINE ( - 2023-2 5 season) 2023 DEPRESSION SCREENING 02/16/2024 INFLUENZA VACCINE (Season Ended) 2024 HEPATITIS B VACCINE Aged Out No longe r eligible based on patient's age to complete this topic HIB VACCINE Aged Out No longer eligi ble based on patient's age to complete this topic HPV VACCINE Aged Out No longer eligi ble based on patient's age to complete this topic MENINGOCOCCAL (Group B) VACC INE SHARED DECISION-MAKING Aged Out No longer eligibl e based on patient's age to complete this topic MENINGOCOCCAL GROUPS A/C/Y/W VACCINE Aged Out No longer eligible b ased on patient's age to complete this topic Insurance ANTHEM ANTHEM
--- OUTSIDE RECORDS SUMMARY | 2024-07-13 14:23 | XMS_ITS | Encounter Summary ---
Author Organization [facility] Address [address] [place] [address] Care Team Providers Care Cooling System Operator Name Role Phone Unavailable Primary Care Provider Unavailabl e Encounter Details Date Type Department Care Team (Late st Contact Info) Description 03/10/2023 Lab Requisition [facility] - DermPath Lab [address] [facility], [place] [address] Zahira Andrews MD [address] [facility] 3 [place] [address] Social History Tobacco Use Types Packs/Day Years Used Date Smoking Tobacco: Never Assessed Comments Unknown Sex and Gender Information Value Date Recorded Sex Assigned at Not on file Legal Sex Female 6:14 PM LANGUAGE TEACHER Gender Identity Not on file Sexual Orientation Not on file documented as of this encounter Plan of Treatment Not on file documented as of this encounter Procedures Procedure Name Priority Date/Time Associated Diagnosis Comments DERMATOPATHOLOGY Routine 03/10/2023 1:22 PM LANGUAGE TEACHER documented in this encounter Results * DERMATOPATHOLOGY (03/10/2023 1:22 PM LANGUAGE TEACHER) Case Report Dermatopathology Report Case: [id number] Authorizing Provider: Zahira Andrews MD Collected: 03/10/2023 01:22 PM Ordering Location: [facility] DermPath Lab Received: 03/11/2023 02:16 PM Pathologist: Belen Emerson MD Specimen: Skin, right shoulder 1:18 PM LANGUAGE TEACHER DERMATOPATHOLOGY LABORATORY Final Diagnosis Specimen A. SKIN, right shoulder: SQUAMOUS CELL CARCINOMA, KERATOACANTHOMA TYPE; SUPERFICIAL PORTIONS OF (C44.622) (see microscopic description) 1:18 PM LANGUAGE TEACHER DERMATOPATHOLOGY LABORATORY at 1318 LANGUAGE TEACHER Clinical History BVP vs SCC, Irritated 4 1:18 PM [facility] DERMATOPATHOLOGY LABORATORY Gross Description Specimen A: Received is one formalin filled container labeled with the patient's name and designated right shoulder. The specimen consists of a (2) pieces shave biopsy measuring 6x6x5,4x4x1 mm. Jar 0. 4 1:18 PM [facility] DERMATOPATHOLOGY LABORATORY Microscopic Description Specimen A. SKIN, right shoulder: Sections show superficial portions of an endo exophytic crateriform lesion with a keratotic plug, formed by confluent follicle-like structures with relatively large keratinocytes. 4 1:18 PM [facility] DERMATOPATHOLOGY LABORATORY Disclaimer An external and internal positive and negative controls are appropriate for the histochemical, immunohistochemical and immunofluorescence stain(s) in this case (if any), except where stated explicitly. The performance characteristics of the stain(s) cited in this report were developed and its performance characteristic determined by the Dermatopathology Laboratory at [facility], directed by Dr. Jaz Black. These tests need not be, and therefore are not, approved by the [place] Food and Drug Administration. The tests are used for clinical purposes. Billing Codes Specimen Charges Stain Charges 80982 1 4 1:18 PM LANGUAGE TEACHER DERMATOPATHOLOGY LABORATORY Embedded Images 4 1:18 PM [facility] DERMATOPATHOLOGY LABORATORY Pathology/Cytolo gy TISSUE SPECIMEN FROM SKIN / Unknown 03/10/2023 1:22 PM LANGUAGE TEACHER 03/11/2023 2:16 PM LANGUAGE TEACHER us Zahira Andrews MD LAB - PATHOLOGY/CYTOLOGY ORD ERABLES Final Result DERMATOPATHOLOGY LABORATORY [facility] - Department of Dermatology [address], [address] [phone] documented in this encounter Visit Diagnoses Not on filedocumented in this encounter
--- OUTSIDE RECORDS SUMMARY | 2024-07-13 14:23 | XMS_ITS | Clinical Summary ---
Author Organization [facility] Address [address] [address] Phone Care Team Providers Care Brick Yard Hand Name Role Phone JanetAngel conde Sacha Primary Care Provider Allergies Active Allergy Reactions Criticality Noted Date Comments Sulfa (Sulfonamide Antibiotics) Unknown 08/16 Medications acetaminophen (TYLENOL ARTHRITIS) 650 mg Extended Release tablet Take 1,950 mg by mouth every 6 hours as needed for Pain. Active calcium carbonate + vitamin D (CALCIUM WITH VITAMIN D) 600 mg(1,500mg) -400 unit Tablet Take 2 Tablets by mouth daily. Active Cholecalciferol , Vitamin D3, 2,000 unit Capsule Take 2 Capsules by mouth daily. Active apixaban (ELIQUIS) 5 mg tablet Take 5 mg by mouth 2 times daily. Active flecainide (TAMBOCOR) 50 mg Tablet Take 50 mg by mouth every 12 hours. Active losartan (COZAAR) 25 mg tablet Take 25 mg by mouth daily. Active fluticasone propionate (FLONASE) 50 mcg/spray [place], Suspension nasal inhaler Administer 2 Sprays in each nostril daily at bedtime. Active L gasseri/B bifidum/B longum (REY [place] ORAL) Take 1 Capsule by mouth daily. Active metoprolol succinate (TOPROL XL) 25 mg Extended Release 24 hour tablet Take 25 mg by mouth daily at bedtime. Active omeprazole (PriLOSEC) 20 mg Capsule, Delayed Release(E.C.) Take 20 mg by mouth daily. Active piroxicam (FELDENE) 20 mg capsule Take 20 mg by mouth daily. Active tolterodine (DETROL LA) 2 mg Extended Release 24 hour capsule Take 2 mg by mouth daily. Active estradiol (YUVAFEM) 10 mcg tablet Insert 10 mcg vaginally twice weekly. Active multivitamin (DAILY-JERONIMO) tablet Take 1 Tablet by mouth daily. Active HYDROcodone-niko taminophen (NORCO) 5-325 mg tabletIndicatio ns:Postoperativ e follow-up Take 1 tablet by mouth every 4 hours as needed for moderate pain. Max Daily Amount: 6 Tablets 28 Tablet 09/13/2018 11:37 AM CDT 9 Active Social History Tobacco Use Types Packs/Day Years Used Date Smoking Tobacco: Never Smokeless Tobacco: Never Alcohol Use Standard Drinks/Week Comments Never 0 (1 standard drink = 0.6 oz pur e alcohol) Comments No Sex and Gender Information Value Date Recorded Sex Assigned at Not on file Legal Sex Female 3:12 PM CDT Gender Identity Not on file Sexual Orientation Not on file Last Filed Vital Signs Vital Sign Reading Time Taken Comments Blood Pressure 143/67 09/13/2018 11:50 AM CDT Pulse 78 09/13/2018 11:50 AM CDT Temperature 36 C (96.8 F) 09/13/2018 11:00 AM CDT Respiratory Rate 16 09/13/2018 11:50 AM CDT Oxygen Saturation 100% 09/13/2018 11:50 AM CDT Inhaled Oxygen Concentration - - Weight 81.6 kg (180 lb) 09/13/2018 7:14 AM CDT Height 170.2 cm (5' 7) 09/13/2018 7:14 AM CDT Body Mass Index 28.19 09/13/2018 7:14 AM CDT Plan of Treatment Health Maintenance Due Date Last Done Comments DTAP/TDAP/TD VACCINES (1 - Tdap) 05/13/1966 PNEUMOCOCCAL VACCINE 50+ YEARS (1 of 1 - PCV) 05/13/18 98 ZOSTER VACCINE (1 of 2) 05/13/1997 OSTEOPOROSIS SCREENING 05/13/2012 RSV VACCINE (60+ or ) (1 - 1-dose 75+ series) 05/13/2022 INFLUENZA VACCINE (#1) 2023 Medical Devices Implanted Type Area Last Putter Away Device Identifier Shelf Expiration Date Model / Serial / Lot Bilateral Knee Replacements Insurance MEDICARE PART A HOSPITAL ONLY [facility]AL RX [facility] [employer] Advance Directives For more information, please contact: [phone] Documents on File Type Date Recorded Patient Upholstery Tech Expl anation Advance Directive Living Will 09/09/2018 9:22 AM Advance Directive Living Will * Full Code (Latest Code Status on File) Date Activated Date Inactivated Comments 09/13/2018 8:03 AM 09/13/2018 4:09 PM Care Teams Brick Yard Hand Relationship Specialty Start Date End Date Angel Aj DO [address] [address] PCP - General Internal Medicine 09/07/18
--- OUTSIDE RECORDS SUMMARY | 2024-07-13 14:23 | XMS_ITS | Encounter Summary ---
Author Organization [facility] Address [address] [place] [address] Care Team Providers Care Teacher Visually Impaired Name Role Phone Angel Aj DO Primary Care Provider +1- [phone] Encounter Details Date Type Department Care Team (Late st Contact Info) Description 06/08/2024 Results Follow-Up [facility] Cardiology [address] [place] [address] Sonya Pardo MD [address] [place] [address] Extended/Senior Living Holter Patch (>48 hours up to 7 days) Social History Tobacco Use Types Packs/Day Years Used Date Smoking Tobacco: Never Smokeless Tobacco: Never Alcohol Use Standard Drinks/Week Comments Yes 0 (1 standard drink = 0.6 oz pur e alcohol) rare--1x/year Comments No Sex and Gender Information Value Date Recorded Sex Assigned at Not on file Legal Sex Female 3:40 AM STRAND AND BINDER CONTROLLER Gender Identity Female 05/24/2019 10:21 AM CDT Sexual Orientation Not on file Occupation Industry Job Start Date Job End Date Retired Not on file Not on file Not on file documented as of this encounter Plan of Treatment Not on file documented as of this encounter Visit Diagnoses Not on filedocumented in this encounter Care Teams Teacher Visually Impaired Relationship Specialty Start Date End Date Angel Aj DO PCP - General 05/15/16 documented as of this encounter
--- OUTSIDE RECORDS SUMMARY | 2024-07-13 14:23 | XMS_ITS | Encounter Summary ---
Author Organization [facility] Address [address] [facility] [address] [place] [address] Care Team Providers Care Promotions Coordinator Name Role Phone Angel Aj DO Primary Care Provider +1- [phone] Angel Aj DO Primary Care Provider +1- [phone] Encounter Details Date Type Department Care Team (Late st Contact Info) Description 03/03/2016 Orders Only [facility] ProviderNany MD [address] [place] [address] Social History Tobacco Use Types Packs/Day Years Used Date Smoking Tobacco: Never Alcohol Use Standard Drinks/Week Comments No 0 (1 standard drink = 0.6 oz pur e alcohol) Comments Unknown Sex and Gender Information Value Date Recorded Sex Assigned at Not on file Legal Sex Female 3:40 AM CAPACITOR REPAIRER Gender Identity Female 05/24/2019 10:21 AM CDT Sexual Orientation Not on file documented as of this encounter Plan of Treatment Not on file documented as of this encounter Procedures Procedure Name Priority Date/Time Associated Diagnosis Comments CARDIOLOGY REPORT 03/03/2016 documented in this encounter Results * CARDIOLOGY REPORT (03/03/2016) Anatomical Region Laterality Modality Other Narrative 03/03/2016 Ordered by an unspecified provider. Historical Provider [facility] INNA RASMUSSEN Final Result documented in this encounter Visit Diagnoses Not on filedocumented in this encounter Care Teams Promotions Coordinator Relationship Specialty Start Date End Date Angel Aj DO PCP - General 05/15/16 Angel Aj DO PCP - General 08/21/14 05/14/16 documented as of this encounter
[2024-07-13 14:59] LABS: Basophils Absolute Auto 0.1 K/mm3 (0.0-0.1); Basophils Percent Auto 1.3 % (0.2-1.2); Eosinophils Absolute Auto 0.1 K/mm3 (0-0.3); Eosinophils Percent Auto 1.9 % (0-4.4); Hematocrit 39.5 % (37.0-47.0); Hemoglobin 12.8 g/dL (12.0-15.0); Immature Granulocyte Absolute 0.01 K/mm3 (0.00-0.031); Immature Granulocyte Percent A 0.2 % (0-0.5); Lymphocytes Absolute Auto 1.07 K/mm3 (0.9-3.2); Lymphocytes Percent Auto 20.3 % (18.3-44.2); Mean Corpuscular HGB Conc 32.4 g/dl (32-36); Mean Corpuscular Hemoglobin 29.8 pg (26-34); Mean Corpuscular Volume 92.1 fl (80-100); Mean Platelet Volume 10.2 fl (7.4-10.4); Monocytes Absolute Auto 0.4 K/mm3 (0.1-0.6); Monocytes Percent Auto 7.8 % (2.6-8.5); Neutrophils Absolute Auto 3.6 K/mm3 (1.3-6.7); Neutrophils Percent Auto 68.5 % (45.5-73.1); Platelet Count Result 283 k/mm3 (150-375); Red Blood Count 4.29 M/mm3 (4.2-5.4); Red Cell Distribution Width 12.8 % (11.5-14.5); White Blood Count 5.3 K/mm3 (4.5-10.0)
[2024-07-13 15:18] LABS: LDL Cholesterol Direct 84 mg/dL
[2024-07-13 15:29] LABS: Alanine Aminotransferase 21 U/L (6-35); Albumin Level 4.8 g/dL (3.5-5.1); Alkaline Phosphatase 97 U/L (38-126); Anion Gap 9 mmol/L (4-12); Aspartate Amino Transferase 37 U/L (14-36); Bilirubin,Total 0.6 mg/dL (0.2-1.3); Blood Urea Nitrogen 21 mg/dL (7-17); Carbon Dioxide 27 mmol/L (22-30); Chloride 96 mmol/L (98-107); Cholesterol 235 mg/dL (0-200); Estimated Glomerular Filt Rate > 60; Glucose 104 mg/dL (65-110); Potassium 4.7 mmol/L (3.4-5.0); Sodium 132 mmol/L (137-145); Triglycerides 101 mg/dL (<150)
[2024-07-13 16:36] LABS: HDL Direct 113 mg/dL
== END 2024-07-13 14:22 | disposition home or self-care (01) ==
LOC: ANHLAB 14:22
PROVIDERS: PCP Internal Medicine; Visit Provider Nurse Practitioner
DX: E55.9 Vitamin D deficiency, unspecified (principal); I10 Essential (primary) hypertension; D50.9 Iron deficiency anemia, unspecified; Z13.220 Encounter for screening for lipoid disorders
CPT/HCPCS: 36415; 80053; 80061; 82306; 85025

== ENCOUNTER 2024-07-13 16:02 | Outpatient (NON) | payer BC, SELFPAY ==
--- OUTSIDE RECORDS SUMMARY | 2024-07-13 16:05 | XMS_ITS | Clinical Summary ---
Author Organization [facility] Address [address] [place] [address] Care Team Providers Care Animal Trainer Name Role Phone Unavailable Primary Care Provider Unavailabl e Source Comments [facility],non-owned Affiliates and Associated Physician Practices is amultiple site organization consisting of ambulatory clinics and hospital sitesin [place], [place], [place] and [place]. This disclosure is being madepursuant to the Care Everywhere program and may not contain all information available regarding this patient. 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
--- OUTSIDE RECORDS SUMMARY | 2024-07-13 16:05 | XMS_ITS | Encounter Summary ---
Author Organization [facility] Address [address] [place] [address] Care Team Providers Care Aircraft Inspector Name Role Phone Unavailable Primary Care Provider Unavailabl e Encounter Details Date Type Department Care Team (Late st Contact Info) Description 11/23/2018 Lab Requisition [facility] [address] [facility], [place] [address] Madelin Cueva MD [address] [facility] [address] [place] [address] Social History Tobacco Use Types Packs/Day Years Used Date Smoking Tobacco: Never Assessed Comments Unknown Sex and Gender Information Value Date Recorded Sex Assigned at Not on file Legal Sex Female 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 Gender Identity Not on file Sexual Orientation Not on file documented as of this encounter Plan of Treatment Not on file documented as of this encounter Procedures Procedure Name Priority Date/Time Associated Diagnosis Comments DERMATOPATHOLOGY Routine 11/22/2018 12:0 0 AM CDT documented in this encounter Results * DERMATOPATHOLOGY (11/22/2018 12:00 AM CDT) Case Report Dermatopathology Report Case: [id number] Authorizing Provider: Madelin Cueva MD Collected: 11/22/2018 12:00 AM Ordering Location: [facility] Received: 11/23/2018 06:48 AM Pathologist: [...] consists of a shave (2 pieces) measuring 3z0t7sh & 3g9c2rm. Jar 0. 4:37 PM CDT DERMATOPATHOLOGY LABORATORY [...] characteristic determined by the Dermatopathology Laboratory at [facility], directed by Dr. Jaz Black. These tests need not be, and therefore are not, approved by the [place] Food and Drug Administration. The tests are used for clinical purposes. Billing Codes Specimen Charges Stain Charges 68985 1 4:37 PM CDT DERMATOPATHOLOGY LABORATORY Embedded Images 4:37 PM CDT DERMATOPATHOLOGY LABORATORY Pathology/Cytolog y TISSUE SPECIMEN FROM SKIN / Unknown 11/22/2018 11/23/2018 6:48 AM CDT us Madelin Cueva MD LAB - PATHOLOGY/CYTOLOGY OR DERABLES Final Result DERMATOPATHOLOGY LABORATORY [facility] - Department of Dermatology [facility] [facility], 5th [place] [address], [facility] [phone] documented in this encounter Visit Diagnoses Not on filedocumented in this encounter
--- OUTSIDE RECORDS SUMMARY | 2024-07-13 16:05 | XMS_ITS | Clinical Summary ---
Author Organization [facility] Address [address] [address] Phone Care Team Providers Care Behavior Analyst Name Role Phone JanetAngel conde Sacha Primary [...] daily. Active fluticasone propionate (FLONASE) 50 mcg/spray [place], Suspension nasal inhaler Administer 2 Sprays in each nostril daily at bedtime. Active L gasseri/B bifidum/B longum (REY [employer] [facility] ORAL) Take 1 Capsule by mouth [...] (#1) 2023 Medical Devices Implanted Type Area Combination Technician Device Identifier Shelf Expiration Date Model / Serial / Lot Bilateral Knee Replacements Insurance MEDICARE PART A HOSPITAL ONLY [facility] FEDERAL RX [facility] [employer] Advance Directives For more information, please contact: [phone] Documents on File Type Date Recorded Patient Global Regulatory Affairs Manager Expl anation Advance Directive Living Will 09/09/2018 9:22 AM Advance Directive Living Will * Full Code (Latest Code Status on File) Date Activated Date Inactivated Comments 09/13/2018 8:03 AM 09/13/2018 4:09 PM Care Teams Behavior Analyst Relationship Specialty Start Date End Date Angel Aj DO [address] [address] PCP - General Internal Medicine 09/07/18
--- OUTSIDE RECORDS SUMMARY | 2024-07-13 16:05 | XMS_ITS | Referral Summary ---
Author Organization [place] [address] Address [address] [place] [address] [address] [place] [address] Care Team Providers Care Final Installer Inspector Name Role Phone Angel Aj DO Primary Care Provider +1- [phone] Encounters Date Type Department Care Team Description 06/08/2024 Results Follow-Up [facility] Medical [facility] Cardiology [address] [place] [address] [address] [place] [address] Sonya Pardo MD Extended/Shelter Holter Patch (>48 hours up to 7 days) 05/19/2024 2:30 PM CDT Ancillary Procedure [facility] Cardiology [address] [place] [address] [address] [place] [address] 05/17/2024 Telephone [facility] Cardiology [address] [place] [address] [address] [place] [address] Sonya Pardo MD 04/14/2024 10:45 AM SYRUP FILTERER Office Visit [facility] Cardiology [address] [place] [address] [address] [place] [address] Sonya Pardo MD Paroxysmal atrial fibrillation (HCC) (Primary Dx); Chronic anticoagulation; Essential hypertension; Mixed hyperlipidemia; H/O cardiomyopathy; residential current use 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 drug; Edema of [...] Noted Date Diagnosed Date H/O cardiomyopathy 01/18/2022 residential current use 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 drug Edema of both lower extremities 06/10/2020 Hyponatremia 06/10/2020 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 ELDA (obstructive sleep apnea) 05/30/2019 Acquired trigger finger 12/01/2018 Enthesopathy of hip region 12/01/2018 Injury of lower extremity 12/01/2018 Osteoarthritis of knee 12/01/2018 Primary localized osteoarthrosis of hand 019 Radiotherapy follow-up 12/01/2018 Trochanteric bursitis of left hip 12/01/2018 Overview (12/01/2018): Added automatically from request for surgery [id number] Tear of left gluteus medius tendon 12/01/2018 Overview (12/01/2018): Added automatically from request for surgery [id number] Mixed hyperlipidemia 04/05/2018 Paroxysmal atrial fibrillation 10/08/2016 [...] on file Legal Sex Female 3:40 AM SYRUP FILTERER Gender Identity Female 05/24/2019 10:21 AM CDT Sexual Orientation Not on file Occupation Industry Job Start Date Job End Date Retired Not on file Not on file Not on file Last Filed Vital Signs Vital Sign Reading Time Taken Comments Blood Pressure 122/76 04/14/2024 10:35 AM SYRUP FILTERER Pulse 70 04/14/2024 10:35 AM SYRUP FILTERER Temperature 36.4 C (97.5 F) 12/20/2018 4:00 PM SYRUP FILTERER Respiratory Rate 16 12/20/2018 4:00 PM SYRUP FILTERER Oxygen Saturation 98% 04/14/2024 10:35 AM SYRUP FILTERER Inhaled Oxygen Concentration - - Weight 79.8 kg (176 lb) 04/14/2024 10:35 AM SYRUP FILTERER Height 167.6 cm (5' 6) 04/14/2024 10:35 AM SYRUP FILTERER Body Mass Index 28.41 04/14/2024 10:35 AM SYRUP FILTERER Plan of Treatment Not on file Medical Devices Implanted Type Area Licensed Mass Real Estate Appraiser Device Identifier Shelf Expiration Date Model / Serial / Lot Ar[employer]rex [employer] [id number] Swivelock C Fibertak Tigertail 4.75mm 22mm 2 Load 2 [place] Suture - [id number] Implanted:Qty: 1 on 12/20/2018 by Smita Ochoa MD at [facility] [place] Left: Buttocks [employer] 08/14/2020 AR-2324BCT -2 / / [id number] Ar[employer] [id number] Swivelock C Fibertak Tigertail 4.75mm 22mm 2 Load 2 [place] Suture - [id number] Implanted:Qty: 1 on 12/20/2018 by Smita Ochoa MD at [facility] [place] Left: Buttocks [employer] 02/15/2020 AR-2324BCT -2 / / [id number] Lifenet [id number] Matracell Arthroflex [id number] Decellularize Thk2mm Graft Soft - [id number] - [id number] Implanted:Qty: 1 on 12/20/2018 by Smita Ochoa MD at [facility] [place] Left: Buttocks Lifenet 08/24/2021 [id number] / [id number] / Ar[employer] Ar-2324bcc Swivelock C 4.75mm 19.1mm Closed Eyelet Vent [place] Suture - [id number] Implanted:Qty: 1 on 12/20/2018 by Smita Ochoa MD at [facility] [place] Left: Buttocks [employer] 10/15/2020 AR-2324BCC / / [id number] [employer] [id number] Swivelock C Fibertak Tigertail 4.75mm 22mm 2 Load 2 [place] Suture - [id number] Implanted:Qty: 1 on 12/20/2018 by Smita Ochoa MD at [facility] [place] Left: Buttocks [employer] AR-2324BCT -2 / / [id number] Procedures Procedure Name Priority Date/Time Associated Diagnosis Comments EXTENDED/FPC HOLTER PATCH (>48 HOURS UP TO 7 DAYS) Routine 05/19/2024 2:09 PM CDT Paroxysmal atrial fibrillation (HCC) from Last 3 Months Results * Extended/Shelter Holter Patch (>48 hours up to 7 days) (05/19/2024 2:09 PM CDT) Anatomical Region Laterality Modality Electrocardiogra phy Narrative 06/07/2024 3:27 PM CDT AMBULATORY LINE AND FRAME POLER REPORT Patient Name: Sue Colbert Date of [...] was used to complete this document, therefore, metal base blocker variances may occur. Dorian Ball MD, [facility] 06/07/24 [facility] Ivory Pardo MD CV CARDIAC SERVICES PRO CEDURES Final Result from Last 3 Months Insurance MEDICARE [facility] TRADITIONAL [facility] Address: [id number] [place] [address] [facility] FEDERAL [facility] FEDERAL Care Teams Final Installer Inspector Relationship Specialty Start Date End Date Angel Aj DO PCP - General 05/15/16
--- OUTSIDE RECORDS SUMMARY | 2024-07-13 16:05 | XMS_ITS | Clinical Summary ---
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 ELDA (obstructive sleep apnea) 05/30/2019 Acquired trigger finger 12/01/2018 Enthesopathy of hip region 12/01/2018 Injury of lower extremity 12/01/2018 Osteoarthritis of knee 12/01/2018 Primary localized osteoarthrosis of hand 019 Radiotherapy follow-up 12/01/2018 Trochanteric bursitis of left hip 12/01/2018 Overview (12/01/2018): Added automatically from request for surgery [id number] Tear of left gluteus medius tendon 12/01/2018 Overview (12/01/2018): Added automatically from request for surgery [id number] Mixed hyperlipidemia 04/05/2018 Paroxysmal atrial fibrillation 10/08/2016 Therapeutic drug monitoring 10/08/2016 Essential hypertension 03/30/2016 Overview (05/21/2016): Essential hypertension Chronic anticoagulation 12/20/2015 Overview (05/21/2016): Chronic anticoagulation Resolved Problems Problem Noted Date Diagnosed Date Resolved Date Orthostasis 01/18/2022 01/18/2022 Cardiomyopathy 10/08/2016 04/14/2024 Encounters Date Type Department Care Team Description 06/08/2024 Results Follow-Up [facility] Cardiology [address] [place] [address] [place] [address] Sonya Pardo MD Extended/Correction Holter Patch (>48 hours up to 7 days) 05/19/2024 2:30 PM CDT Ancillary Procedure [facility] Cardiology [address] [place] [address] [place] [address] 05/17/2024 Telephone [facility] Cardiology [address] [place] [address] Sonya Pardo MD 04/14/2024 10:45 AM GUZZLER BUILDER Office Visit [facility] Cardiology [address] [place] [address] Sonya Pardo MD Paroxysmal atrial fibrillation (HCC) (Primary Dx); Chronic anticoagulation; Essential hypertension; Mixed hyperlipidemia; H/O cardiomyopathy; terminal make up operator current use 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 drug; Edema of [...] 1 Linda Vision loss Mother's Sister 2 Sanders Relation Name Status Comments Father Mother Riya Mother's Brother 1 Harjit Mother's Brother 2 Harjit Alive Mother's Sister 1 Sanders Mother's Sister 2 Linda Alive Social History Tobacco Use Types Packs/Day Years Used Date Smoking Tobacco: Never Smokeless Tobacco: Never Tobacco Cessation:Counseling Given: Not Answered Alcohol Use Standard Drinks/Week Comments Yes 0 (1 standard drink = 0.6 oz pur e alcohol) rare--1x/year Comments No Sex and Gender Information Value Date Recorded Sex Assigned at Not on file Legal Sex Female 3:40 AM GUZZLER BUILDER Gender Identity Female 05/24/2019 10:21 AM CDT Sexual Orientation Not on file Occupation Industry Job Start Date Job End Date Retired Not on file Not on file Not on file Obstetrics History Last Filed Vital Signs Vital Sign Reading Time Taken Comments Blood Pressure 122/76 04/14/2024 10:35 AM GUZZLER BUILDER Pulse 70 04/14/2024 10:35 AM GUZZLER BUILDER Temperature 36.4 C (97.5 F) 12/20/2018 4:00 PM GUZZLER BUILDER Respiratory Rate 16 12/20/2018 4:00 PM GUZZLER BUILDER Oxygen Saturation 98% 04/14/2024 10:35 AM GUZZLER BUILDER Inhaled Oxygen Concentration - - Weight 79.8 kg (176 lb) 04/14/2024 10:35 AM GUZZLER BUILDER Height 167.6 cm (5' 6) 04/14/2024 10:35 AM GUZZLER BUILDER Body Mass Index 28.41 04/14/2024 10:35 AM GUZZLER BUILDER Plan of Treatment Health Maintenance Due Date [...] 10/15/2023, 10/01/2019 Medical Devices Implanted Type Area Primary Care Coordinator Device Identifier Shelf Expiration Date Model / Serial / Lot Arthrex Inc [id number] Swivelock C Fibertak Tigertail 4.75mm 22mm 2 Load 2 [place] Suture - [id number] Implanted:Qty: 1 on 12/20/2018 by Smita Ochoa MD at [facility] [place] Left: Buttocks Ar[employer] 08/14/2020 AR-2324BCT -2 / / [id number] Ar[employer] Inc [id number] Swivelock C Fibertak Tigertail 4.75mm 22mm 2 Load 2 [place] Suture - [id number] Implanted:Qty: 1 on 12/20/2018 by Smita Ochoa MD at [facility] [place] Left: Buttocks [employer] 02/15/2020 AR-2324BCT -2 / / [id number] Lifenet [id number] Matracell Arthroflex [id number] Decellularize Thk2mm Graft Soft - [id number] - [id number] Implanted:Qty: 1 on 12/20/2018 by Smita Ochoa MD at [facility] [place] Left: Buttocks Lifenet 08/24/2021 [id number] / [id number] / Arthrex Inc Ar-2324bcc Swivelock C 4.75mm 19.1mm Closed Eyelet Vent [place] Suture - [id number] Implanted:Qty: 1 on 12/20/2018 by Smita Ochoa MD at [facility] [place] Left: Buttocks Ar[employer] Inc 10/15/2020 AR-2324BCC / / [id number] Ar[employer]rex Inc [id number] Swivelock C Fibertak Tigertail 4.75mm 22mm 2 Load 2 [place] Suture - [id number] Implanted:Qty: 1 on 12/20/2018 by Smita Ochoa MD at [facility] [place] Left: Buttocks Ar[employer] AR-2324BCT -2 / / [id number] Procedures Procedure Name Priority Date/Time Associated Diagnosis Comments EXTENDED/SHELTER HOLTER PATCH (>48 HOURS UP TO 7 DAYS) Routine 05/19/2024 2:09 PM CDT Paroxysmal atrial fibrillation (HCC) from Last 3 Months Results * Extended/Correction Holter Patch (>48 hours up to 7 days) (05/19/2024 2:09 PM CDT) Anatomical Region Laterality Modality Electrocardiogra phy Narrative 06/07/2024 3:27 PM CDT AMBULATORY BRACELET FORM COVERER REPORT Patient Name: Sue Colbert Date of [...] was used to complete this document, therefore, head field hockey coach variances may occur. Dorian Ball MD, [facility] 06/07/24 [facility] Ivory Pardo MD CV CARDIAC SERVICES PRO CEDURES Final Result from Last 3 Months Insurance MEDICARE [facility] TRADITIONAL [facility] FEDERAL [facility] FEDERAL Care Teams Bottling Line Operator Relationship Specialty Start Date End Date Angel Aj DO [facility] - General 05/15/16
--- OUTSIDE RECORDS SUMMARY | 2024-07-13 16:05 | XMS_ITS | Encounter Summary ---
Author Organization [facility] Address [address] [facility] [address] [place] [address] Care Team Providers Care Gis Instructor Name Role Phone Angel Aj DO Primary Care Provider +1- [phone] Angel Aj DO Primary Care Provider +1- [phone] Encounter Details Date Type Department Care Team (Late st Contact Info) Description 04/08/2016 Orders Only [facility] ProviderNany MD [address] [place] [address] Social History Tobacco Use Types Packs/Day Years Used Date Smoking Tobacco: Never Alcohol Use Standard Drinks/Week Comments No 0 (1 standard drink = 0.6 oz pur e alcohol) Comments Unknown Sex and Gender Information Value Date Recorded Sex Assigned at Not on file Legal Sex Female 3:40 AM ADMINISTRATION INTERN Gender Identity Female 05/24/2019 10:21 AM CDT [...] on filedocumented in this encounter Care Teams Gis Instructor Relationship Specialty Start Date End Date Angel Aj DO PCP - General 05/15/16 Angel Aj DO PCP - General 08/21/14 05/14/16 documented as of this encounter
--- OUTSIDE RECORDS SUMMARY | 2024-07-13 16:05 | XMS_ITS | Clinical Summary ---
Author Organization [facility] Address [address] [address] Phone Care Team Providers Care Retail Maintenance Technician Name Role Phone Angel Aj DO Primary Care Provider Wendy Blackburn APRN Unavailable [phone] Caridad Rivera MD Unavailable [phone] Allergies Active Allergy Reactions Criticality Noted Date [...] Lnp-s, Pf, 3 0 Mcg/0.3 Ml Dose ([place]) 04/24/2020 Influenza, high-dose, trivalent, PF 10/0 08/2018,11/06/2017,10/17/2016,2015,11/06/2013 [...] Most Recently Relevant to Health Maintenance Insurance [facility] Care Teams Retail Maintenance Technician Relationship Specialty Start Date End Date Angel Aj DO [address] [facility] [address] PCP - General Internal Medicine 03/09/19 Wendy Blackburn APRN [address] [facility] [place] [address] Pain Medicine-Pain Management 03/09/19 Caridad Rivera MD [address] [place] [address] Cardiology 05/07/20
--- OUTSIDE RECORDS SUMMARY | 2024-07-13 16:05 | XMS_ITS | Continuity of Care Document ---
Author Organization [facility] Address [address] [place] [address] [address] [place] [address] Phone Care Team Providers Care Process Control Tech Name Role Phone Aminta Garg Unavailable Unavailable Procedures Procedure Date Eye Exam, New Patient Advance Directives Directive Yes / No Effective Date File Name No Information Encounters Encounter Description Practice Location Reason(s) For Visit Diagnoses Date Provider Providers Copied on Encounter [facility], [address], [place], [place], [id number], [place] tel:[phone] [facility] No Information 3-[address] Britany Lemos. [address] , [address], [place], [address], [place]. tel:[phone] Family History Family Member Type Diagnosis Age At Onset No Information Payers Payer name Insurance type Covered democrat ID Authoriza tion(s) No Information Social History [...]
--- OUTSIDE RECORDS SUMMARY | 2024-07-13 16:05 | XMS_ITS | Encounter Summary ---
Author Organization [facility] Address [address] [facility] [address] Care Team Providers Care Systems Integration Advisor Name Role Phone Unavailable Primary Care Provider Unavailabl e Encounter Details Date Type Department Care Team (Late st Contact Info) Description 12/14/2018 Lab Requisition [facility] DermPath Lab [address] [facility], [place] [address] Madelin Cueva MD [address] [facility] 3 [place] [address] Social History Tobacco Use Types Packs/Day Years Used Date Smoking Tobacco: Never Assessed Comments Unknown Sex and Gender Information Value Date Recorded Sex Assigned at Not on file Legal Sex Female 6:14 PM CLIENT CONSULTANT Gender Identity Not on file Sexual Orientation Not on file documented as of this encounter Plan of Treatment Not on file documented as of this encounter Procedures Procedure Name Priority Date/Time Associated Diagnosis Comments DERMATOPATHOLOGY Routine 12/13/2018 12:0 0 AM CDT documented in this encounter Results * DERMATOPATHOLOGY (12/13/2018 12:00 AM CDT) Case Report Dermatopathology Report Case: [id number] Authorizing Provider: Madelin Cueva MD Collected: 12/13/2018 12:00 AM Ordering Location: [facility] DermPath Lab Received: 12/14/2018 07:00 AM Pathologist: aYshira Black MD Specimen: Skin, right pires 9 2:02 PM CDT DERMATOPATHOLOGY LABORATORY Final Diagnosis Specimen A. SKIN, right pires: DERMAL SCAR RESIDUAL BASAL CELL CARCINOMA NOT IDENTIFIED (L90.5) 9 2:02 PM CDT DERMATOPATHOLOGY LABORATORY at 1402 CDT Clinical History Bx proven BCC. Previous Bx: [id number]. 2:02 PM CDT DERMATOPATHOLOGY LABORATORY Gross Description Specimen A: Received is one formalin filled container labeled with the patient's name and designated right pires. The specimen consists of a non-oriented ellipse of skin measuring [id number]. The epidermal surface consists of a centrally located 15k51me previous biopsy site. The margin is inked [...] characteristic determined by the Dermatopathology Laboratory at [facility], directed by Dr. Jaz Black. These tests need not be, and therefore are not, approved by the [place] Food and Drug Administration. The tests are used for clinical purposes. Billing Codes Specimen Charges Stain Charges 68379 1 2:02 PM CDT DERMATOPATHOLOGY LABORATORY Embedded Images 2:02 PM CDT DERMATOPATHOLOGY LABORATORY Pathology/Cytolog y TISSUE SPECIMEN FROM SKIN / Unknown 12/13/2018 12/14/2018 7:00 AM CDT us Madelin Cueva MD LAB - PATHOLOGY/CYTOLOGY OR DERABLES Final Result DERMATOPATHOLOGY LABORATORY [facility] - Department of Dermatology [address] [place] [address], 5th [place] [address], [facility] [phone] documented in this encounter Visit Diagnoses Not on filedocumented in this encounter
--- OUTSIDE RECORDS SUMMARY | 2024-07-13 16:05 | XMS_ITS | Encounter Summary ---
Author Organization [facility] Address [address] [place] [address] Care Team Providers Care Control Technician Name Role Phone Unavailable Primary Care Provider Unavailabl e Encounter Details Date Type Department Care Team (Late st Contact Info) Description 10/21/2022 Lab Requisition [facility] - DermPath Lab [address] [facility], [place] [address] Zahira Andrews MD [address] [facility] 3 [place] [address] Social History Tobacco Use Types Packs/Day Years Used Date Smoking Tobacco: Never Assessed Comments Unknown Sex and Gender Information Value Date Recorded Sex Assigned at Not on file Legal Sex Female 6:14 PM FULL STACK DEVELOPER Gender Identity Not on file Sexual Orientation Not on file documented as of this encounter Plan of Treatment Not on file documented as of this encounter Procedures Procedure Name Priority Date/Time Associated Diagnosis Comments DERMATOPATHOLOGY Routine 10/21/2022 11:1 7 AM CDT documented in this encounter Results * DERMATOPATHOLOGY (10/21/2022 11:17 AM CDT) Case Report Dermatopathology Report Case: [id number] Authorizing Provider: Zahira Andrews MD Collected: 10/21/2022 11:17 AM Ordering Location: [facility] DermPath Lab Received: 10/21/2022 04:49 PM Pathologist: [...] characteristic determined by the Dermatopathology Laboratory at [facility], directed by Dr. Jaz Black. These tests need not be, and therefore are not, approved by the [place] Food and Drug Administration. The tests are used for clinical purposes. Billing Codes Specimen Charges Stain Charges 50066 53437 1 1 3 11:30 AM CDT DERMATOPATHOLOGY LABORATORY Embedded Images 3 11:30 AM CDT DERMATOPATHOLOGY LABORATORY Pathology/Cytology TISSUE SPECIMEN FROM SKIN / Unknown 10/21/2022 11:17 AM CDT 10/21/2022 4:49 PM CDT Miscellaneous samples (specimen) TISSUE SPECIMEN FROM SKIN / Unknown 10/21/2022 11:17 AM CDT 10/21/2022 4:49 PM CDT us Zahira Andrews MD LAB - PATHOLOGY/CYTOLOGY ORD ERABLES Final Result DERMATOPATHOLOGY LABORATORY [facility] - Department of Dermatology [facility] Medicine [address] [place] [address], [address] [phone] documented in this encounter Visit Diagnoses Not on filedocumented in this encounter
--- OUTSIDE RECORDS SUMMARY | 2024-07-13 16:05 | XMS_ITS | Encounter Summary ---
Author Organization [facility] Address [address] [facility] [address] [place] [address] Care Team Providers Care Reed Fixer Name Role Phone Angel Aj DO Primary Care Provider +1- [phone] Angel Aj DO Primary Care Provider +1- [phone] Encounter Details Date Type Department Care Team (Late st Contact Info) Description 03/03/2016 Orders Only [facility] ProviderNany MD [address] [place] [address] Social History Tobacco Use Types Packs/Day Years Used Date Smoking Tobacco: Never Alcohol Use Standard Drinks/Week Comments No 0 (1 standard drink = 0.6 oz pur e alcohol) Comments Unknown Sex and Gender Information Value Date Recorded Sex Assigned at Not on file 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
--- OUTSIDE RECORDS SUMMARY | 2024-07-13 16:05 | XMS_ITS | Encounter Summary ---
Author Organization [facility] Address [address] [facility] [place] [address] Care Team Providers Care Finnish Rubber Name Role Phone Unavailable Primary Care Provider Unavailabl e Encounter Details Date Type Department Care Team (Late st Contact Info) Description 03/10/2023 Lab Requisition [facility] - DermPath Lab [address] [facility], [place] [address] Zahira Andrews MD [address] [facility] 3 [place] [address] Social History Tobacco Use Types Packs/Day Years Used Date Smoking Tobacco: Never Assessed Comments Unknown Sex and Gender Information Value Date Recorded Sex Assigned at Not on file Legal Sex Female 6:14 PM VOCATIONAL SCHOOL TEACHER Gender Identity Not on file Sexual Orientation Not on file documented as of this encounter Plan of Treatment Not on file documented as of this encounter Procedures Procedure Name Priority Date/Time Associated Diagnosis Comments DERMATOPATHOLOGY Routine 03/10/2023 1:22 PM VOCATIONAL SCHOOL TEACHER documented in this encounter Results * DERMATOPATHOLOGY (03/10/2023 1:22 PM VOCATIONAL SCHOOL TEACHER) Case Report Dermatopathology Report Case: [id number] Authorizing Provider: Zahira Andrews MD Collected: 03/10/2023 01:22 PM Ordering Location: [facility] DermPath Lab Received: 03/11/2023 02:16 PM Pathologist: Belen Emerson MD Specimen: Skin, right shoulder 1:18 PM VOCATIONAL SCHOOL TEACHER DERMATOPATHOLOGY LABORATORY Final Diagnosis Specimen A. SKIN, right shoulder: SQUAMOUS CELL CARCINOMA, KERATOACANTHOMA TYPE; SUPERFICIAL PORTIONS OF (C44.622) (see microscopic description) 1:18 PM VOCATIONAL SCHOOL TEACHER DERMATOPATHOLOGY LABORATORY at 1318 VOCATIONAL SCHOOL TEACHER Clinical History BVP vs SCC, Irritated 4 1:18 PM [facility] DERMATOPATHOLOGY LABORATORY Gross Description Specimen A: Received is one formalin filled container labeled with the patient's name and designated right shoulder. The specimen consists of a (2) pieces shave biopsy measuring 6x6x5,4x4x1 mm. Jar 0. 4 1:18 PM [facility] DERMATOPATHOLOGY LABORATORY Microscopic Description Specimen A. SKIN, right shoulder: Sections show superficial portions of an endo exophytic crateriform lesion with a keratotic plug, formed by confluent follicle-like structures with relatively large keratinocytes. 4 1:18 PM [facility] DERMATOPATHOLOGY LABORATORY Disclaimer An external and internal positive and negative controls are appropriate for the histochemical, immunohistochemical and immunofluorescence stain(s) in this case (if any), except where stated explicitly. The performance characteristics of the stain(s) cited in this report were developed and its performance characteristic determined by the Dermatopathology Laboratory at [facility], directed by Dr. Jaz Black. These tests need not be, and therefore are not, approved by the [place] Food and Drug Administration. The tests are used for clinical purposes. Billing Codes Specimen Charges Stain Charges 97236 1 4 1:18 PM VOCATIONAL SCHOOL TEACHER DERMATOPATHOLOGY LABORATORY Embedded Images 4 1:18 PM [facility] DERMATOPATHOLOGY LABORATORY Pathology/Cytolo gy TISSUE SPECIMEN FROM SKIN / Unknown 03/10/2023 1:22 PM VOCATIONAL SCHOOL TEACHER 03/11/2023 2:16 PM VOCATIONAL SCHOOL TEACHER us Zahira Andrews MD LAB - PATHOLOGY/CYTOLOGY ORD ERABLES Final Result DERMATOPATHOLOGY LABORATORY [facility] - Department of Dermatology [address], [address] [phone] documented in this encounter Visit Diagnoses Not on filedocumented in this encounter
--- OUTSIDE RECORDS SUMMARY | 2024-07-13 16:05 | XMS_ITS | Encounter Summary ---
Author Organization [facility] Address [address] [facility] [place] [address] Care Team Providers Care Teacher Education Director Name Role Phone Unavailable Primary Care Provider Unavailabl e Encounter Details Date Type Department Care Team (Late st Contact Info) Description 03/24/2023 Lab Requisition [facility] - DermPath Lab [address] [facility], [place] [address] Zahira Andrews MD [address] [facility] 3 [place] [address] Social History Tobacco Use Types Packs/Day Years Used Date Smoking Tobacco: Never Assessed Comments Unknown Sex and Gender Information Value Date Recorded Sex Assigned at Not on file Legal Sex Female 6:14 PM VOCAL TEACHER Gender Identity Not on file Sexual Orientation Not on file documented as of this encounter Plan of Treatment Not on file documented as of this encounter Procedures Procedure Name Priority Date/Time Associated Diagnosis Comments DERMATOPATHOLOGY Routine 03/24/2023 3:05 PM VOCAL TEACHER documented in this encounter Results * DERMATOPATHOLOGY (03/24/2023 3:05 PM VOCAL TEACHER) Case Report Dermatopathology Report Case: [id number] Authorizing Provider: Zahira Andrews MD Collected: 03/24/2023 03:05 PM Ordering Location: [facility] DermPath Lab Received: 03/25/2023 01:52 PM Pathologist: Belen Emerson MD Specimen: Skin, right shoulder 4 12:29 PM VOCAL TEACHER DERMATOPATHOLOGY LABORATORY Final Diagnosis Specimen A. SKIN, right shoulder: DERMAL SCAR RESIDUAL SQUAMOUS CELL CARCINOMA NOT IDENTIFIED (L90.5) 4 12:29 PM VOCAL TEACHER DERMATOPATHOLOGY LABORATORY at 1229 VOCAL TEACHER Clinical History SCC BX Proven 4 12:29 PM [facility] DERMATOPATHOLOGY LABORATORY Gross Description Specimen A: Received is one formalin filled container labeled with the patient's name and designated right shoulder. The specimen consists of a non-oriented ellipse of skin measuring [id number] mm. Also, there a lesion 5x4 mm. The margin is inked green. The 12 o'clock and 6 o'clock tips are submitted in cassette 1. The remainder of the ellipse is serially sectioned and submitted in cassette 2 - 3. Jar 0. 4 12:29 PM [facility] DERMATOPATHOLOGY LABORATORY Microscopic Description Specimen A. SKIN, right shoulder: There are fibroblasts and collagen bundles oriented parallel to the skin surface. There are elongated blood vessels, some of which are oriented perpendicular to the skin surface. No residual squamous cell carcinoma is identified. 4 12:29 PM [facility] DERMATOPATHOLOGY LABORATORY Disclaimer An external and internal positive and negative controls are appropriate for the histochemical, immunohistochemical and immunofluorescence stain(s) in this case (if any), except where stated explicitly. The performance characteristics of the stain(s) cited in this report were developed and its performance characteristic determined by the Dermatopathology Laboratory at [facility], directed by Dr. Jaz Black. These tests need not be, and therefore are not, approved by the [place] Food and Drug Administration. The tests are used for clinical purposes. Billing Codes Specimen Charges Stain Charges 36974 1 4 12:29 PM [facility] DERMATOPATHOLOGY LABORATORY Embedded Images 4 12:29 PM [facility] DERMATOPATHOLOGY LABORATORY Pathology/Cytolo gy TISSUE SPECIMEN FROM SKIN / Unknown 03/24/2023 3:05 PM VOCAL TEACHER 03/25/2023 1:52 PM [facility] us Zahira Andrews MD LAB - PATHOLOGY/CYTOLOGY ORD ERABLES Final Result DERMATOPATHOLOGY LABORATORY [facility] - Department of Dermatology [address], [address]rd [place] [address], [facility] [phone] documented in this encounter Visit Diagnoses Not on filedocumented in this encounter
--- OUTSIDE RECORDS SUMMARY | 2024-07-13 16:05 | XMS_ITS | Encounter Summary ---
Author Organization [facility] Address [address] [place] [address] Care Team Providers Care Client Service Consultant Name Role Phone Angel Aj DO Primary Care Provider +1- [phone] Encounter Details Date Type Department Care Team (Late st Contact Info) Description 06/08/2024 Results Follow-Up [facility] Cardiology [address] [place] [address] Sonya Pardo MD [address] [place] [address] Extended/Correction Holter Patch (>48 hours up to 7 days) Social History Tobacco Use Types Packs/Day Years Used Date Smoking Tobacco: Never Smokeless Tobacco: Never Alcohol Use Standard Drinks/Week Comments Yes 0 (1 standard drink = 0.6 oz pur e alcohol) rare--1x/year Comments No Sex and Gender Information Value Date Recorded Sex Assigned at Not on file 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
== END 2024-07-13 16:03 | disposition home or self-care (01) ==
PROVIDERS: PCP Internal Medicine; Visit Provider Otolaryngology
DX: J31.0 Chronic rhinitis (principal); T48.5X5A Adverse effect of other anti-common-cold drugs, initial encounter; J34.89 Other specified disorders of nose and nasal sinuses
CPT/HCPCS: 87070; 87075; 87181; 87205

== ENCOUNTER 2024-08-09 09:23 | Outpatient (CLI) | payer BC, SELFPAY ==
--- NOTE | ~2024-08-09 | DEXA_ITS ---
Bone Density Report Name: GLADYS COLBERT Age: 79 Sex: Female Ethnicity: White Date of : 1945 Indication: osteopenia; height loss; Referring Provider: DELON BOONE Study: Bone densitometry was performed. Exam Date: August 09, 2024 Accession number: [id number] Bone Density: Region BMD T-score Z-score Classification AP Spine(L1-L4) 0.895 -1.4 1.1 Osteopenia Femoral Neck (Left) 0.689 -1.4 0.7 Osteopenia Total Hip (Left) 0.882 -0.5 1.4 Normal Femoral Neck (Right) 0.648 -1.8 0.4 Osteopenia Total Hip (Right) 0.815 -1.0 0.9 Normal Total Hip Mean 0.849 -0.8 1.2 Normal World Health Organization criteria for BMD impression classify patients as: Normal (T-score at or above -1.0), Osteopenia (T-score between -1.0 and -2.5), or Osteoporosis (T-score at or below -2.5). 10-year Fracture Risk(1): Major Osteoporotic Fracture 13% Hip Fracture 3.1% Reported Risk Factors: [place] (), Neck BMD=0.648, BMI=28.5 (1) FRAX(R) Version 3.08. Fracture probability calculated for an untreated patient. Fracture probability may be lower if the patient has received treatment. Previous Exams: Region Exam Age BMD T-score BMD Change BMD Change Date g/cm2 vs Baseline vs Previous Total Hip(Left) 08/09/2024 79 0.882 -0.5 -0.081 (-8.4%) 0.025 (2.9%) 05/20/2022 77 0.857 -0.7 -0.106 (-11.0% -0.007 (-0.8%) 03/15/2020 74 0.864 -0.6 -0.099 (-10.3% -0.050 (-5.5%) 12/21/2017 72 0.914 -0.2 -0.049 (-5.1%) -0.013 (-1.4%) 10/07/2015 70 0.927 -0.1 -0.036 (-3.7%) -0.016 (-1.7%) 09/26/2013 68 0.943 0.0 -0.020 (-2.1%) -0.020 (-2.1%) 09/22/2011 66 0.963 0.2 Total Hip(Right) 08/09/2024 79 0.815 -1.0 -0.113 (-12.2% 0.014 (1.8%) 05/20/2022 77 0.801 -1.2 -0.127 (-13.7% -0.012 (-1.4%) 03/15/2020 74 0.812 -1.1 -0.116 (-12.5% -0.057 (-6.6%) 12/21/2017 72 0.870 -0.6 -0.059 (-6.3%) -0.034 (-3.8%) 10/07/2015 70 0.904 -0.3 -0.024 (-2.6%) -0.024 (-2.6%) 09/26/2013 68 0.928 -0.1 -0.001 (-0.1%) -0.001 (-0.1%) 09/22/2011 66 0.928 -0.1 *Denotes significance at 95% confidence level, LSC for Total Hip = 0.027 g/cm2 # Denotes dissimilar scan types or analysis methods Clinical Information Provided by Patient: Has used the following medications: Vitamin D, Calcium Patient maximum height was 68 Menopause Age: 52 No regular weight bearing exercise Drinks caffeinated beverages Onset of menses at age 13 Number of children 1 Impression: The patient has low bone mass, based on the Right Femoral Neck T-score. The patient has an estimated ten-year risk of hip fracture of 3.1% and an estimated ten-year risk of major fracture of 13%, based on the WHO FRAX algorithm. No significant bone loss was observed. Discussion: BONE DENSITY IS LOW AT ONE OR MORE SKELETAL SITES. THE PATIENT'S BMD AND CLINICAL RISK FACTORS CONTRIBUTE TO THIS PATIENT'S INCREASED RISK OF FRACTURE. This patient's lowest T-score is low at one or more skeletal sites. It meets the World Health Organization's (WHO) criteria for ?low bone mass? (T-score between -1.0 and -2.5). The patient's 10-year risk of hip fracture as calculated by FRAX exceeds the threshold where pharmacological therapy is recommended by the National Osteoporosis Foundation (NOF). However, all treatment decisions require clinical judgment and consideration of individual patient factors, including patient preferences, comorbidities, previous drug use, risk factors not captured in the FRAX model (e.g., frailty, falls, vitamin D deficiency, increased bone turnover, interval significant decline in bone density) and possible under or overestimation of fracture risk by FRAX. The patient should follow a healthful lifestyle (good nutrition with adequate calcium and vitamin D, and appropriate weight-bearing exercise). Follow-Up: Consider a repeat BMD and Vertebral Fracture Assessment (VFA) exam in 2 years or sooner if medically necessary, to reassess this patient's status. Reported by: CHAS on 08/11/2024 11:25:00 AM. Reviewed, dictated and finalized at location A.
--- NOTE | ~2024-08-09 | MM_ITS ---
EXAMINATION: MM screening sherin BI w lalo HISTORY: Screening mammogram TECHNIQUE: Craniocaudal and mediolateral oblique 3-D tomosynthesis images were obtained and synthetic 2-D images were generated. CAD analysis was submitted and interpreted. COMPARISON: 07/13/2023, 05/20/2022, 03/24/2021 BREAST PARENCHYMAL COMPOSITION:Not Dense. The breasts are almost entirely fatty FINDINGS: No suspicious mass, calcification, or architectural distortion are identified in either severino ast to suggest malignancy. There has been no suspicious interval change. IMPRESSION: No mammographic evidence of malignancy. Recommend routine screening mammography in one year. BI-RADS Category 2: Benign finding(s). Reviewed, dictated and finalized at location .
== END 2024-08-09 09:24 | disposition home or self-care (01) ==
LOC: ANHIMG 09:27
PROVIDERS: PCP Nurse Practitioner; Visit Provider Nurse Practitioner Family
DX: Z12.31 Encounter for screening mammogram for malignant neoplasm of breast (principal); M85.89 Other specified disorders of bone density and structure, multiple sites; Z78.0 Asymptomatic menopausal state
CPT/HCPCS: 77063; 77067; 77080

== ENCOUNTER 2024-10-26 11:06 | Emergency (ER) | payer BC, SELFPAY ==
[2024-10-26 11:14] VITALS: BP 130/67; PULSE 69; RESP 18; TEMP 36.6; O2SAT 100
[2024-10-26 11:22] LABS: EDUAAPPEAR Cloudy; EDUABILI Negative (Negative); EDUABLOOD Trace (Negative); EDUACOLOR1 Light/Pale; EDUAGLUCOSE Negative (Negative); EDUAKETONE Negative (Negative); EDUALEUKO 2+ (Negative); EDUANITRATE Negative (Negative); EDUAPH 5.5; EDUAPROTEIN Negative (Negative); EDUASPGRAVITY 1.010; EDUAUROBILI 0.2
--- NOTE | 2024-10-26 11:42 | ED.FEMALEGU ---
HPI - Female Genitourinary General Chief complaint: Urogenital-Female Stated complaint: UTI Time Seen by Provider: 10/26/24 11:25 Source: patient and RN notes reviewed Mode of arrival: ambulatory Limitations: no limitations History of Present Illness HPI Narrative: 79-YEAR-OLD FEMALE presents Express Care complaining of urinary symptoms for 2 days. Patient reports having low back pain and increased frequency. Patient denies any fevers, dysuria, hesitancy, abdominal pain, body aches, chills, nausea, vomiting, diarrhea. Patient has not taken anything [id number] for symptoms. Patient recently seen by Urology for recurrent UTIs was prescribed Macrobid once fosfomycin the 2nd time. Patient delete each time she was on antibiotics she said symptoms seem to go away but keep on reoccurring. Patient has a history of AFib. Patient says she took a home UTI test and said it was positive. Related Data Home Medications ?Medication ?Instructions ?Recorded ?Confirmed ?Last Taken ?Type Lactobacills gasseri-Bifidobac 1 cap PO DAILY 03/30/19 10/04/24 08/26/20 History bifidum,longum 1.5 billion cell capsule (NexGen Storage) acetaminophen 650 mg tablet 650 mg PO Q8-12H PRN Pain 03/30/19 10/04/24 11/15/19 History apixaban 5 mg tablet (Eliquis) 5 mg PO BID 03/30/19 10/04/24 08/25/20 History cholecalciferol (vitamin D3) 50 2,000 unit PO DAILY 03/30/19 10/04/24 08/26/20 History mcg (2,000 unit) capsule flecainide 50 mg tablet 50 mg PO BID 03/30/19 10/04/24 08/29/20 History 0500 fluticasone propionate 50 2 spray intranasal DAILY 03/30/19 10/04/24 06/19/20 History mcg/actuation nasal spray,suspension multivitamin 1 tablet PO DAILY 03/30/19 10/04/24 08/26/20 History metoprolol succinate 25 mg 12.5 mg PO HS 09/22/19 10/04/24 08/28/20 History tablet,extended release 24 hr 1730 valsartan 40 mg tablet 40 mg PO DAILY 09/22/19 10/04/24 06/19/20 History diclofenac sodium 1 % topical gel 2 gm topical HS PRN Pain 11/10/19 10/04/24 11/15/19 History calcium 600 mg (as 2 cap PO DAILY 05/23/20 10/04/24 08/26/20 History carbonate)-vitamin D3 12.5 mcg (500 unit) capsule (Calcium with Vit D3) amiloride 5 mg tablet 5 mg PO DAILY 08/14/20 10/04/24 Unknown History sennosides 8.6 mg tablet (senna) 8.6 mg PO DAILY 05/15/22 10/04/24 Unknown History peg 400-propylene glycol 0.4 %-0.3 1 drp EACH EYE DAILY PRN 02/25/23 10/04/24 Unknown History % eye drops (Systane Ultra) cetirizine 5 mg-pseudoephedrine ER 1 tablet PO DAILY 07/13/24 10/04/24 Unknown History 120 mg tablet,extended release,12hr (Zyrtec-D) fluocinolone 0.01 % topical topical 07/27/24 10/04/24 Unknown History solution Allergies Allergy/AdvReac Type Severity Reaction Status Date / Time lisinopril Allergy Mild Cough Verified 10/26/24 11:08 vibegron (From Gemtesa) Allergy Mild Rash Verified 10/26/24 11:08 Sulfa (Sulfonamide Allergy Unknown Unknown Verified 10/26/24 11:08 Antibiotics) hydrochlorothiazide AdvReac Intermediate Dizziness Verified 10/26/24 11:08 and nausea ciprofloxacin (From Cipro) AdvReac Other Verified 10/26/24 11:33 Review of Systems Review of Systems: CONSTITUTIONAL: Denies fever, chills, body aches, or sweats. EYES: Denies visual changes, redness, or discharge. ENT: Denies rhinorrhea, congestion, sore throat, or otalgia. CARDIOVASCULAR: Denies chest pain, palpitations, or edema. RESPIRATORY: Denies cough or dyspnea. GASTROINTESTINAL: Denies abdominal pain, nausea, vomiting, or diarrhea. GENITOURINARY: Positive for increased frequency. Negative for hematuria, hesitancy, vaginal discharge. SKIN: Denies rash or itching. MUSCULOSKELETAL: Positive for low back pain. Negative for joint pain, or myalgia. NEUROLOGIC: Denies headache, numbness, or weakness. PSYCHIATRIC: Denies anxiety or depression. All other systems reviewed are negative, except as documented in HPI. [facility] Past Medical History Medical History ELDA (obstructive sleep apnea) Plantar fasciitis of right foot Encounter for Postoperative Care Foot pain, right Orthopedic hardware present Skin cancer Gastrocnemius equinus of right lower extremity Spring ligament tear Flatfoot Posterior tibial tendon dysfunction (PTTD) of right lower extremity History of anesthesia reaction Arthritis Urinary frequency Weight gain Seasonal allergies Cataract Allergies Migraine headache Osteoarthritis Hemorrhoids Pulmonary heart disease Atrial fibrillation History of measles, mumps, or rubella Chicken pox Overactive bladder Vitamin deficiency Hyponatremia Hypertension Anemia Decreased GFR Surgical History Surgical History H/O melanoma excision 2024 left shoulder blade History of hip surgery left hip 2018 H/O foot surgery Cyst removed on left foot 08/2018 History of knee replacement Right 2006 Left 2017 H/O knee surgery Torn cartilage Left 2000 H/O tubal ligation BL 1978 Family History Family History Mother Family history of Alzheimer's disease, Onset Age: 85 Sibling Patient's brother is in good health Father MVA (motor vehicle accident) Social History Social History Social History: Caffeine-Soda,decaf tea Smoking status: Never smoker Second hand tobacco smoke exposure: No Alcohol intake: current Alcohol use details: rarely Substance use: never Substance use type: does not use Do You Feel Safe in your Home?: Yes Lack of Transportation: No Lack of Food: Never True Current Housing: I Have Housing Concerned About Future Housing: No Difficulty Paying Gas/Electric Bills: No Difficulty Paying for Meds: No Currently Unemployed: No Education: Bachelor's Degree Difficulty w/ Childcare or Family Care: No Living arrangements: with family Spiritual care concerns: No Comments At the time of my signature, I reviewed and agree with the nursing past medical, surgical, social, and family history. There is no relevant family history pertinent to the patient complaint. Exam Narrative: GENERAL: This is a well-nourished, well-developed adult, in no apparent distress. They are non ill-appearing, nontoxic appearing. HEAD: normocephalic, atraumatic. EYES: Sclera clear/white. Vision is grossly intact. Conjunctiva normal bilaterally. Extraocular movements intact. EARS: External ears normal,Hearing grossly intact. NOSE: External nose normal THROAT: Mucous membranes moist NECK: Normal range of motion CARDIOVASCULAR: Regular rate and rhythm. Normal S1-S2. No clicks, gallops, rubs, murmurs. RESPIRATORY: Respiratory rate normal, respiratory effort nonlabored, no respiratory distress. Lung sounds clear to auscultation throughout. Lung sounds equal bilaterally. No adventitious lung sounds. GASTROINTESTINAL: Abdomen soft, flat, non-tender, nondistended. Bowel sounds are active. No hepato-splenomegaly, or palpable masses. No guarding. No rebound tenderness. SKIN: warm, Dry, intact with no suspicious lesions or rash, good texture and turgor. NEURO: awake, alert, and oriented to person, place and time. There were no obvious focal neurologic abnormalities. EXTREMITIES: No joint tenderness, effusion, or edema noted. BACK: Nontender without deformity. No CVA tenderness. Course Course Emergency Course: Portions of this record may have been created with voice recognition software Level of Care: Express Care Visit Vital Signs Vital signs: Vital Signs Temperature 97.8 F 10/26/24 11:14 Pulse Rate 69 10/26/24 11:14 Respiratory Rate 10/26/24 11:14 Blood Pressure 130/67 10/26/24 11:14 Pulse Oximetry 100 10/26/24 11:14 Oxygen Delivery Room Air 10/26/24 11:14 Temperature 97.8 F 10/26/24 11:14 Pulse Rate 69 10/26/24 11:14 Respiratory Rate 18 10/26/24 11:14 Blood Pressure 130/67 10/26/24 11:14 Pulse Oximetry 100 10/26/24 11:14 Oxygen Delivery Room Air 10/26/24 11:14 MDM - Female Genitourinary MDM Narrative Medical decision making narrative: Urine dipstick shows evidence of urinary tract infection. Urine culture pending. Will go ahead and treat patient with cephalexin. Advised patient to follow-up with her PCP or urologist for further evaluation management of her recurrent UTIs. Discussed physical exam findings. Advised supportive measures and signs/symptoms to go to the ER. Pt is appropriate for outpt treatment and f/u. Differential Diagnosis Differential diagnosis: Likely urinary tract infection, cystitis and other (Pyelonephritis) Lab Data Attestation: I reviewed the patient's lab results. Labs: Lab Results 10/26/24 Range/Units 11:20 POC Urine Color Light/pale POC Urine Clarity Cloudy POC Urine pH 5.5 POC Ur Specif [place] 1.010 POC Urine Protein Negative (Negative) POC Ur Glucose (UA) Negative (Negative) POC Urine Ketones Negative (Negative) POC Urine Blood Trace (Negative) POC Urine Nitrite Negative (Negative) POC Urine Bilirubin Negative (Negative) POC Urine Urobilinogen 0.2 POC U Leukocyte Esteras 2+ (Negative) Discharge Plan Discharge Clinical Impression: Urinary tract infection Qualifiers: Urinary tract infection type: site unspecified Hematuria presence: with hematuria Qualified Code(s): N39.0 - Urinary tract infection, site not specified Patient Disposition: Home Condition: Stable Instructions: Antibiotic Form, Urinary Tract Infection in Older Adults (ED) Additional Instructions: Take the antibiotic as prescribed The urine will be sent of for a culture to identify what type of bacteria is causing your infection. If the culture shows that the antibiotic will not get rid of your infection, you will be notified and a new antibiotic will be called in for you. Increase water intake you will need to follow up with your PCP for urologist 3-5 days. Go to the ER for any worsening symptoms, abdominal pain, fevers, nausea, vomiting, or any other concerns Patient Language: Iraqi Prescriptions: New cephalexin 500 mg capsule 500 mg PO TID 7 Days Qty: 21 0RF No Action sennosides [senna] 8.6 mg Tablet 8.6 mg PO DAILY amiloride 5 mg tablet 5 mg PO DAILY eszopiclone [Lunesta] 2 mg tablet 2 mg PO QHS Qty: 1 0RF Rx Instructions: Take on night of sleep study valsartan 40 mg tablet 40 mg PO DAILY metoprolol succinate 25 mg tablet extended release 24 hr 12.5 mg PO HS Systane Ultra 0.4-0.3 % drops 1 drp EACH EYE DAILY PRN cetirizine-pseudoephedrine [Zyrtec-D] 5-120 mg tablet extended release 12 hr 1 tablet PO DAILY fluocinolone 0.01 % solution topical diclofenac sodium 1 % gel 2 gm TOPICAL HS PRN (Reason: Pain) calcium carbonate-vitamin D3 [Calcium 600 with Vitamin D3] 600 mg(1,500mg) -500 unit Capsule 2 cap PO DAILY acetaminophen 650 mg tablet 650 mg PO Q8-12H PRN (Reason: Pain) cholecalciferol (vitamin D3) 50 mcg (2,000 unit) capsule 2,000 unit PO DAILY Eliquis 5 mg tablet 5 mg PO BID flecainide 50 mg tablet 50 mg PO BID fluticasone propionate 50 mcg/actuation spray,suspension 2 spray NASAL DAILY Rx Instructions: administer into each nostril multivitamin Tablet 1 tablet PO DAILY NexGen Storage 1.5 billion cell capsule 1 cap PO DAILY azelastine 137 mcg (0.1 %) spray,non-aerosol 137 mcg intranasal Q12H Qty: 90 1RF Rx Instructions: administer into each nostril omeprazole 20 mg capsule,delayed release(DR/EC) See Rx Instructions .ROUTE .COMPLEX Qty: 90 1RF Dose Instruction: TAKE 1 CAPSULE BY MOUTH EVERY DAY Rx Instructions: TAKE 1 CAPSULE BY MOUTH EVERY DAY Follow-up/Referrals: Angel Aj DO [Primary Care Provider, Internal Medicine] Time of Disposition: 11:34
== END 2024-10-26 11:35 | disposition home or self-care (01) ==
PROVIDERS: PCP Internal Medicine
DX: N39.0 Urinary tract infection, site not specified (principal); I48.91 Unspecified atrial fibrillation; I10 Essential (primary) hypertension; M19.90 Unspecified osteoarthritis, unspecified site; Z79.01 Long term (current) use of anticoagulants; Z96.653 Presence of artificial knee joint, bilateral; Z85.828 Personal history of other malignant neoplasm of skin
CPT/HCPCS: 81003; 87077; 87086; 87186; 99213; G0463

== ENCOUNTER 2024-11-08 08:18 | Outpatient (CLI) | payer BC, SELFPAY ==
--- OUTSIDE RECORDS SUMMARY | 2009-08-27 09:15 | XMS_ITS | Continuity of Care Document ---
Author Organization [facility] Address [address] [place] [address] [address] [place] [address] Phone Care Team Providers Care Photogrammetric Compilation Specialist Name Role Phone Aminta Garg Unavailable Unavailable Procedures Procedure Date Eye Exam, New Patient Advance Directives Directive Yes / No Effective Date File Name No Information Encounters Encounter Description Practice Location Reason(s) For Visit Diagnoses Date Provider Providers Copied on Encounter Merged with [facility], [address], [place], [place], [id number], [place] tel:[phone] [facility] No Information 3-201 0 Britany Lemos. [address] , [address], [place], [address], [place]. tel:[phone] Family History Family Member Type Diagnosis Age At Onset No Information Payers Payer name Insurance type Covered libertarian ID Authoriza tion(s) No Information Social History Type Description Quantity Date Captured Comments Sex Female Smoking Status No Information Chief Complaint And Reason For Visit No Information Reason For Referral Reason For Referral No Information History Of Present Illness Encounter Date Complaint History Of Prese nt Illness No Information Functional Status Date Functional Assessmen t No Information Instructions Date Instruction Additional Infor mation No Information Assessments Type Assessment Date No Information Patient Care Teams Name Effective Dates (start - stop) Status Members No Information
--- OUTSIDE RECORDS SUMMARY | 2024-11-08 08:31 | XMS_ITS | Encounter Summary ---
Author Organization [facility] Address [address] [place] [address] Care Team Providers Care Grain Drier Operator Name Role Phone Angel Aj DO Primary Care Provider [phone] Angel Aj DO Primary Care Provider [phone] Encounter Details Date Type Department Care Team (Late st Contact Info) Description 04/08/2016 Orders Only [facility] ProviderNany MD [address] [place] [id number] Social History Tobacco Use Types Packs/Day Years Used Date Smoking Tobacco: Never Alcohol Use Standard Drinks/Week Comments No 0 (1 standard drink = 0.6 oz pur e alcohol) Comments Unknown Sex and Gender Information Value Date Recorded Sex Assigned at Not on file 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
--- OUTSIDE RECORDS SUMMARY | 2024-11-08 08:31 | XMS_ITS | Clinical Summary ---
Author Organization [facility] Address [address] [address] Phone Care Team Providers Care Psychiatric Clinical Nurse Specialist Name Role Phone Angel Aj DO Primary Care Provider Wendy Blackburn APRN Unavailable [phone] Caridad Rivera MD Unavailable [phone] Allergies Active Allergy Reactions Criticality Noted Date [...] Lnp-s, Pf, 3 0 Mcg/0.3 Ml Dose (G[employer]) 04/24/2020 Influenza, high-dose, trivalent, PF 10/0 08/2018,11/06/2017,10/17/2016,2015,11/06/2013 [...] 1-dose 75+ series) 05/13/2022 Influenza Immunization (#1) 10/16/2024/0 08/2018, 11/06/2017, 10/17/2016, Additional history exists SARS-COV-2 Immunization ( season) 2024 11/12/2020, 05/15/2020, 04/24/2020 Colonoscopy Discontinued 06/03/2020 Colorectal Cancer Screening Discontinued Cologuard Discontinued Hepatitis B Immunization Aged Out No longer eligible based on patient's age to complete this topic Human Papillomavirus (HPV) Immunization Aged Out No longer eligible based on patient's age to complete this topic Immunochemical Fecal Occult Blood Discontinued Meningococcal Immunization (ACWY) Aged Out No longer eligible based on patient's age to complete this topic Rotavirus Immunization Aged Out No lo nger eligible based on patient's age to complete this topic Procedures Procedure Name Priority Date/Time Associated Diagnosis Comments HM COLONOSCOPY Routine 06/03/2020 from Last 3 Months or Most Recently Relevant to Health Maintenance Results * HM COLONOSCOPY (06/03/2020) Benjamin T Kltheo DO PROCEDURE/MINOR SURGICAL ORDERA BLES Final Result from Last 3 Months or Most Recently Relevant to Health Maintenance Insurance [facility] Care Teams Psychiatric Clinical Nurse Specialist Relationship Specialty Start Date End Date Angel Aj DO [address] [place] [address] PCP - General Internal Medicine 03/09/19 Wendy Blackburn APRN [address] [place] [address] Pain Medicine-Pain Management 03/09/19 Caridad Rivera MD [address] [facility] [address] [place] [address] Cardiology 05/07/20
--- OUTSIDE RECORDS SUMMARY | 2024-11-08 08:31 | XMS_ITS | Clinical Summary ---
Author Organization [facility] Address [address] [place] [address] Care Team Providers Care Block Greaser Name Role Phone Unavailable Primary Care Provider Unavailabl e Source Comments [facility],non-owned Affiliates and Associated Physician Practices is amultiple site organization consisting of ambulatory clinics and hospital sitesin [place], [place], [place] and [place]. This disclosure is being madepursuant to the Care Everywhere program and may not contain all information available regarding this patient. 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
--- OUTSIDE RECORDS SUMMARY | 2024-11-08 08:31 | XMS_ITS | Encounter Summary ---
Author Organization [facility] Address [address] [place] [address] Care Team Providers Care Audograph Operator Name Role Phone Angel Aj DO Primary Care Provider [phone] Encounter Details Date Type Department Care Team (Late st Contact Info) Description 07/13/2024 Orders Only [facility] [address] [place] [address] Scanning, Provider Social History Tobacco Use Types Packs/Day Years Used Date Smoking Tobacco: Never Smokeless Tobacco: Never Alcohol Use Standard Drinks/Week Comments Yes 0 (1 standard drink = 0.6 oz pur e alcohol) rare--1x/year Comments No Sex and Gender Information Value Date Recorded Sex Assigned at Not on file 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 Gender Identity Female 05/24/2019 10:21 AM CDT Sexual Orientation Not on file Occupation Industry Job Start Date Job End Date Retired Not on file Not on file Not on file documented as of this encounter Plan of Treatment Not on file documented as of this encounter Procedures Procedure Name Priority Date/Time Associated Diagnosis Comments SCAN - LABS 07/13/2024 documented in this encounter Results * SCAN - LABS (07/13/2024) us Provider Scanning Final Result documented in this encounter Visit Diagnoses Not on filedocumented in this encounter Care Teams Audograph Operator Relationship Specialty Start Date End Date Angel Aj DO PCP - General 05/15/16 documented as of this encounter
--- OUTSIDE RECORDS SUMMARY | 2024-11-08 08:31 | XMS_ITS | Encounter Summary ---
Author Organization [facility] Address [address] [place] [address] Care Team Providers Care Labor Commissioner Name Role Phone Angel Aj DO Primary Care Provider [phone] Angel Aj DO Primary Care Provider [phone]- [phone] Encounter Details Date Type Department Care Team (Late st Contact Info) Description 03/03/2016 Orders Only [facility] ProviderNany MD [address] [place] [address] Social History Tobacco Use Types Packs/Day Years Used Date Smoking Tobacco: Never Alcohol Use Standard Drinks/Week Comments No 0 (1 standard drink = 0.6 oz pur e alcohol) Comments Unknown Sex and Gender Information Value Date Recorded Sex Assigned at Not on file 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
--- OUTSIDE RECORDS SUMMARY | 2024-11-08 08:31 | XMS_ITS | Encounter Summary ---
Author Organization [facility] Address [address] [place] [address] Care Team Providers Care High School Music Instructor Name Role Phone Unavailable Primary Care Provider Unavailabl e Encounter Details Date Type Department Care Team (Late st Contact Info) Description 03/10/2023 Lab Requisition [facility] - DermPath Lab [address] [place] [address] Zahira Andrews MD [address] [place] [address] Social History Tobacco Use Types Packs/Day Years Used Date Smoking Tobacco: Never Assessed Comments Unknown Sex and Gender Information Value Date Recorded Sex Assigned at Not on file Legal Sex Female 6:14 PM CONCESSION STAND ATTENDANT Gender Identity Not on file Sexual Orientation Not on file documented as of this encounter Plan of Treatment Not on file documented as of this encounter Procedures Procedure Name Priority Date/Time Associated Diagnosis Comments DERMATOPATHOLOGY Routine 03/10/2023 1:22 PM CONCESSION STAND ATTENDANT documented in this encounter Results * DERMATOPATHOLOGY (03/10/2023 1:22 PM CONCESSION STAND ATTENDANT) Case Report Dermatopathology Report Case: [id number] Authorizing Provider: Zahira Andrews MD Collected: 03/10/2023 01:22 PM Ordering Location: [facility] DermPath Lab Received: 03/11/2023 02:16 PM Pathologist: Belen Emerson MD Specimen: Skin, right shoulder 1:18 PM CONCESSION STAND ATTENDANT DERMATOPATHOLOGY LABORATORY Final Diagnosis Specimen A. SKIN, right shoulder: SQUAMOUS CELL CARCINOMA, KERATOACANTHOMA TYPE; SUPERFICIAL PORTIONS OF (C44.622) (see microscopic description) 1:18 PM CONCESSION STAND ATTENDANT DERMATOPATHOLOGY LABORATORY at [address]18 CONCESSION STAND ATTENDANT Clinical History BVP vs SCC, Irritated 4 1:18 PM [facility] DERMATOPATHOLOGY LABORATORY Gross Description Specimen A: Received is one formalin filled container labeled with the patient's name and designated right shoulder. The specimen consists of a (2) pieces shave biopsy measuring 6x6x5,4x4x1 mm. Jar 0. 4 1:18 PM [facility] DERMATOPATHOLOGY LABORATORY Microscopic Description Specimen A. SKIN, right shoulder: Sections show superficial portions of an endo exophytic crateriform lesion with a keratotic plug, formed by confluent follicle-like structures with relatively large keratinocytes. 4 1:18 PM [facility] DERMATOPATHOLOGY LABORATORY Disclaimer An external and internal positive and negative controls are appropriate for the histochemical, immunohistochemical and immunofluorescence stain(s) in this case (if any), except where stated explicitly. The performance characteristics of the stain(s) cited in this report were developed and its performance characteristic determined by the Dermatopathology Laboratory at [facility], directed by Dr. Jaz Black. These tests need not be, and therefore are not, approved by the [place] Food and Drug Administration. The tests are used for clinical purposes. Billing Codes Specimen Charges Stain Charges 14364 1 4 1:18 PM CONCESSION STAND ATTENDANT DERMATOPATHOLOGY LABORATORY Embedded Images 4 1:18 PM [facility] DERMATOPATHOLOGY LABORATORY Pathology/Cytolo gy TISSUE SPECIMEN FROM SKIN / Unknown 03/10/2023 1:22 PM CONCESSION STAND ATTENDANT 03/11/2023 2:16 PM CONCESSION STAND ATTENDANT us Zahira Andrews MD LAB - PATHOLOGY/CYTOLOGY ORD ERABLES Final Result DERMATOPATHOLOGY LABORATORY [facility] - Department of Dermatology [address], [address] [phone] documented in this encounter Visit Diagnoses Not on filedocumented in this encounter
--- OUTSIDE RECORDS SUMMARY | 2024-11-08 08:31 | XMS_ITS | Data Portability ---
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 Fortunately she does not have pain associated with her chronic left hip abductor tearing. I have discussed with her that revision attempt to repair the abductor tendon would have extremely low likelihood of being successful. in the 3 things that might be helpful would be use of a cane in the right hand, weight loss, and possibly another round of physical therapy to optimize her strength provided by the surrounding musculature. She may consider use of a cane with longer walks and with stairs. She will work on weight loss and she would like to go through course of physical therapy. I will be happy to see her back on an as-needed basis. 30 minutes were spent in total care this patient more than half the time spent in lpoc-uj-yhil care. [email or web address] Not available 06/05/2022 20:01:11 Plan of Treatment Reminders Order Date Submit Date Provider Last Modified By Organization Details Last Modified Time Details Appointments None recorded. Lab None recorded. Referral None recorded. Procedures None recorded. Surgeries None recorded. Imaging XR, hip + pelvis, unilateral 2022 023 [email or web address] [facility] [place], [address], [place], [address], 3 09:55:03 Medication Orders None recorded. Patient TargetsNo targets recorded. Patient InstructionsNo instructions recorded. Reason for Referral None Reported. Results Created Date Observation Date Name Description Value Unit Range Abnormal Flag Note LastModifiedBy Organization Detail LastModifiedTime 10/15/19 22 XR, hand, 3 or more view No observ ation record ed. [id number] [facility] [place] [address], [place], [address], 04/15/2022 12:50:26 12/24/19 22 XR, hand No observ ation record ed. [id number] [facility] [place] [address], [place], [address], 04/15/2022 12:50:26 03/24/19 23 XR, hand, 3 or more view No observ ation record ed. [id number] [facility] [place] [address], [place], [address], 04/15/2022 12:50:26 06/06/19 23 XR, hip + pelvi s, unila teral No observ ation record ed. [email or web address] [facility] [place] [address], [place], [address], 06/05/2022 19:53:28 Result Notes None recorded. Problems Name Problem SNOMED Code Status Onset Date Resolution Date Notes Provider Name and Address Organization Details Recorded Time Injury of lower limb 639569283 Active Not Available [facility] 3 12:47:12 Acquired trigger finger 1074588 Active Not Available [facility] 3 12:47:12 Radiothera py follow-up 551867458 Active Not Available [facility] 3 12:47:12 Localized, primary osteoarthr itis of the hand 705628461 Active Not Available [facility] 3 12:47:12 Osteoarthr itis of knee 907728658 Active Not Available [facility] 3 12:47:12 Enthesopat hy of hip region 69860253 Active Not Available [facility] 3 12:47:12 Osteoarthr itis 884871921 Active Not Available [facility] 3 12:47:13 Headache 75289717 Active 2019 Not Available [facility] 3 12:47:12 Anemia 490532959 Active 2019 Not Available [facility] 3 12:47:12 Bronchitis 88367966 Active 2019 Not Available [facility] 3 12:47:12 Arthritis 0555997 Active 2019 Not Available [facility] 3 12:47:12 Migraine 52836366 Active 2019 Not Available [facility] 3 12:47:13 Sleep disorder 77554150 Active 2019 Not Available [facility] 3 12:47:13 Tendinitis of right posterior tibial tendon 6053587947324 02 Active 2019 Not Available [facility] 3 12:47:12 Tendinitis of left foot 7863675532859 9102 Active 2019 Not Available [facility] 3 12:47:12 Pain in right hand 3313330056732 09 Active 2021 Not Available [facility] 3 12:47:12 Pain of left hip joint 7591759573327 00 Active 2022 JOSE RAMON Nava null, [place] - [facility] 3 11:42:02 Notes:AFIB, allergies, cance r (skin) Problem Notes None recorded. Medical Equipment None Reported. Allergies Allergen ID Allergen Name Allergen Category Reaction Reaction Severity Criticality Documentation Date Start Date Code Code System Note Provider Name and Address Organization Details Recorded Time 59028 Substance with sulfonami de structure and antibacte rial mechanism of action (substanc e) medicatio n Not available Not available Not available 04/15/2022 85374 8003 SNOMED Not Available [facility] 3 12:50:17 88410 lisinopri l medicatio n cough Not available Not available 04/15/2022 66147 RxNorm Not Available [facility] 3 12:50:17 48523 hydrochlo rothiazid e medicatio n nausea Not available Not available 04/15/2022 5487 RxNorm Not Available [facility] 3 12:50:17 Medications Name Sig Start Date Stop Date Status Note LastModified by Organization Details LastModified Time tolterodine ER 2 mg capsule,ext ended release 24 hr TAKE 1 CAPSULE BY MOUTH EVERY DAY 10/14 completed Not Available Not Available Not Available amoxicillin 500 mg capsule TAKE 4 CAPSULES 1 HOUR PRIOR TO DENTAL APPOINTME NT 02/27 completed Not Available Not Available Not Available oxybutynin chloride ER 15 mg tablet,exte nded release 24 hr 02/27 completed Not Available Not Available Not Available polyethylen e glycol 3350 17 gram oral powder packet 02/27 completed Not Available Not Available Not Available Pneumovax-2 3 25 mcg/0.5 mL injection solution 02/27 completed Not Available Not Available Not Available oxybutynin chloride ER 10 mg tablet,exte nded release 24 hr TAKE 1 TABLET EVERY DAY 02/27 completed Not Available Not Available Not Available azithromyci n 250 mg tablet 10/14 completed Not Available Not Available Not Available metoprolol succinate ER 50 mg tablet,exte nded release 24 hr 02/27 completed Not Available Not Available Not Available tolterodine ER 4 mg capsule,ext ended release 24 hr TAKE 1 CAPSULE BY MOUTH EVERY DAY 06/05 completed Not Available Not Available Not Available cephalexin 250 mg capsule 02/27 completed Not Available Not Available Not Available hydrocodone 5 mg-acetamin ophen 325 mg tablet TAKE 1 TABLET BY MOUTH EVERY 6 HOURS NEEDED FOR PAIN 06/05 completed Not Available Not Available Not Available ondansetron HCl 8 mg tablet TAKE 1 TABLET BY MOUTH EVERY 8 HOURS NEEDED FOR NAUSEA/VO MITING 10/14 completed Not Available Not Available Not Available phenazopyri dine 200 mg tablet 02/27 completed Not Available Not Available Not Available ondansetron HCl 4 mg tablet 03/29 completed Not Available Not Available Not Available rizatriptan 10 mg tablet 02/27 completed Not Available Not Available Not Available metoprolol succinate ER 100 mg tablet,exte nded release 24 hr 02/27 completed Not Available Not Available Not Available acetaminoph en 300 mg-codeine 30 mg tablet 02/27 completed Not Available Not Available Not Available ciprofloxac in 250 mg tablet 02/27 completed Not Available Not Available Not Available meloxicam 7.5 mg tablet 10/14 completed Not Available Not Available Not Available oxycodone-a cetaminophe n 5 mg-325 mg tablet 02/27 completed Not Available Not Available Not Available terbinafine HCl 250 mg tablet TAKE 1 TABLET BY MOUTH EVERY DAY 10/14 completed Not Available Not Available Not Available amiloride 5 mg tablet TAKE 1 TABLET BY MOUTH EVERY DAY active Not Available Not Available No t Available prednisolon e acetate 1 % eye drops,suspe nsion INSTILL 1 DROP INTO RIGHT EYE TWICE A DAY 10/14 completed Not Available Not Available Not Available benzonatate 100 mg capsule 02/27 completed Not Available Not Available Not Available hydrocodone 7.5 mg-acetamin ophen 325 mg tablet TAKE 1 TABLET BY MOUTH EVERY 6 HOURS NEEDED FOR PAIN 03/06 completed Not Available Not Available Not Available cephalexin 500 mg capsule TK ONE C PO Q 6 H 02/27 completed Not Available Not Available Not Available ferrous sulfate 325 mg (65 mg iron) tablet TAKE 1 TABLET BY MOUTH EVERY DAY 10/14 completed Not Available Not Available Not Available nitrofurant oin macrocrysta l 100 mg capsule TAKE 1 CAPSULE BY MOUTH EVERY 12 HOURS WITH AMEAL/CHRISTA D 10/14 completed Not Available Not Available Not Available lisinopril 10 mg tablet 02/27 completed Not Available Not Available Not Available warfarin 5 mg tablet 02/27 completed Not Available Not Available Not Available flecainide 50 mg tablet TAKE 1 TABLET BY MOUTH TWICE A DAY active Not Available Not Available No t Available losartan 25 mg tablet active Not Available Not Available No t Available omeprazole 20 mg capsule,del ayed release TAKE 1 CAPSULE BY MOUTH EVERY DAY active Not Available Not Available No t Available montelukast 10 mg tablet 1 TABLET ONCE A DAY BY MOUTH 02/27 completed Not Available Not Available Not Available gabapentin 100 mg capsule 02/27 completed Not Available Not Available Not Available metoprolol succinate ER 25 mg tablet,exte nded release 24 hr TAKE 1/2 TABLET BY MOUTH EVERY DAY active Not Available Not Available No t Available scopolamine 1 mg over 3 days transdermal patch 10/14 completed Not Available Not Available Not Available piroxicam 20 mg capsule 1 CAPSULE ONCE A DAY BY MOUTH 10/14 completed Not Available Not Available Not Available fluticasone propionate 50 mcg/actuati on nasal spray,suspe nsion USE 2 SPRAYS ONCE A DAY IN EACH NOSTRIL 02/27 completed Not Available Not Available Not Available amoxicillin 875 mg-potassiu m clavulanate 125 mg tablet TAKE 1 TABLET BY MOUTH EVERY 12 HOURS active Not Available Not Available No t Available tobramycin 0.3 %-dexametha sone 0.1 % eye drops,suspe nsion INSTILL 1 DROP INTO RIGHT EYE 4 TIMES A DAY 10/14 completed Not Available Not Available Not Available oxycodone 5 mg tablet 02/27 completed Not Available Not Available Not Available valsartan 40 mg tablet TAKE 1 TABLET BY MOUTH EVERY DAY active Not Available Not Available No t Available cyclobenzap rine 5 mg tablet TAKE 1 TABLET EVERY 8 HOURS NEEDED FOR BACK PAIN 02/27 completed Not Available Not Available Not Available Vigamox 0.5 % eye drops 02/27 completed Not Available Not Available Not Available Senna Plus 8.6 mg-50 mg tablet TAKE 1-2 TABLETS BY MOUTH TWICE A DAY active Not Available Not Available No t Available nitrofurant oin monohydrate /macrocryst als 100 mg capsule 02/27 completed Not Available Not Available Not Available hydrochloro thiazide 12.5 mg tablet 10/14 completed Not Available Not Available Not Available diclofenac 1 % topical gel APPLY 2 GRAMS APPLY TO AFFECTED AREA 4 TIMES A DAY FOR OSTEOARTH RITIS active Not Available Not Available No t Available Durezol 0.05 % eye drops 02/27 completed Not Available Not Available Not Available blood pressure test kit-large cuff 02/27 completed Not Available Not Available Not Available Xarelto 20 mg tablet 02/27 completed Not Available Not Available Not Available Ilevro 0.3 % eye drops,suspe nsion active Not Available Not Available Not Available Eliquis 5 mg tablet TAKE 1 TABLET BY MOUTH TWICE DAILY TO PREVENT BLOOD CLOTS AND STROKE active Not Available Not Available No t Available Fluzone High-Dose 2014- (PF) 180 mcg/0.5 mL intramuscul ar syringe active Not Available Not Available N ot Available Fluzone High-Dose 4057-2585 (PF) 180 mcg/0.5 mL intramuscul ar syringe 02/27 completed Not Available Not Available Not Available Yuvafem 10 mcg vaginal tablet INSERT 1 TAB PER VAGINA TWICE A WEEK 10/14 completed Not Available Not Available Not Available Fluzone High-Dose 8789-1871 (PF) 180 mcg/0.5 mL intramuscul ar syringe active Not Available Not Available N ot Available Fluzone High-Dose 3169-3611 (PF) 180 mcg/0.5 mL intramuscul ar syringe active Not Available Not Available N ot Available Fluzone High-Dose (PF) 180 mcg/0.5 mL intramuscul ar syringe TO BE ADMINISTE RED BY PHARMACIS T FOR IMMUNIZAT ION active Not Available Not Available No t Available Fluzone High-Dose Quad 2019- (PF) 240 mcg/0.7 mL IM syringe TO BE ADMINISTE RED BY PHARMACIS T FOR IMMUNIZAT ION active Not Available Not Available No t Available Vitals Date Recorded Body mass index (BMI) Body height Pain severity - 0-10 verbal numeric rating [Score] - Reported Body weight Provider Name and Address Organization Details Last Updated DateTime 03/24/2022 28.7 kg/m2 167.64 cm 0 09635.44 g Not Available [facility] 04/15/2022 12:46:13 Date Recorded Body height Provider Name an d Address Organization Details Last Updated DateTime 06/05/2022 167.64 cm JOSE RAMON Nava [place] [facility] [facility] 06/05/2022 11:41:06 Date Recorded Body mass index (BMI) Body height Pain severity - 0-10 verbal numeric rating [Score] - Reported Body weight Provider Name and Address Organization Details Last Updated DateTime 10/14/2021 28.6 kg/m2 167.64 cm 7 85920.31 g Not Available [facility] 04/15/2022 12:46:13 Date Recorded Body mass index (BMI) Body height Pain severity - 0-10 verbal numeric rating [Score] - Reported Body weight Provider Name and Address Organization Details Last Updated DateTime 11/25/2021 28.6 kg/m2 167.64 cm 0 77402.85 g Not Available [facility] 04/15/2022 12:46:13 Date Recorded Body mass index (BMI) Body height Body weight Provider Name and Address Organization Details Last Updated DateTime 12/23/2021 28.7 kg/m2 167.64 cm 90082.44 g Not Available [facility] 04/15/2022 12:46:13 Social History Question Answer Notes LastModified by Opez Details LastModified Time Tobacco Smoking Status Unknown If Ever Smoked Not Available [facility] 04/15/2022 12:45:50 What Was The Date Of Your Most Recent Tobacco Screening? 10/14/2021 [id number] Information not available 04/15/2022 Sex: Unknown Functional Status Question Answer Note LastModified by Opez Details LastModified Time What is your level of alcohol consumption? Occasional [id number] Information not available 04/15/2022 Mental Status None recorded. Family History Nothing Reported. Medical History Condition Response ARTHRITIS Y CANCER: SPECIFY Y USE OF BLOOD THINNERS Y URINARY/BLADDER/KIDNEY PROBLEMS Y HEART ARRHYTHMIA Y Gynecological HistoryNo gynecological history recorded. Obstetrics History GPAL:G 0 P 0 0 0 0 Past Encounters Encounter ID Performer Location Encounter Start Date Encounter Closed Date Diagnosis/Indication Diagnosis SNOMED-CT Code Diagnosis ICD10 Code Diagnosis IMO Codes Diagnosis Note [id number] Samuel Munguia MD [facility] [place] [address] [place] [address] 10/14/2021 00:00:00 10/14/2021 17:10:13 [id number] Samuel Munguia MD [facility] [place] [address] [place] [address] 11/25/2021 00:00:00 11/25/2021 15:24:18 [id number] [facility] [place] [address] [place] [address] 12/23/2021 00:00:00 12/23/2021 14:33:41 [id number] Samuel Munguia MD [facility] [place] [address] [place] [address] 03/24/2022 00:00:00 03/24/2022 17:02:42 [id number] Lucas Jung MD [facility] [place] [address] [place] [id number] 06/05/2022 11:21:02 06/08/2022 09:55:03 Pain of left hip joint [id number] 01386 M25.552 Health Concerns Section Related Observation LastModified by Organization Detai ls LastModified Time None Recorded Concern Status LastModified by Organization Details LastModified Time None Recorded Advance Directives Directive None Recorded Payers Insurance Date Sequence Insurance Name Policy Number Policy Rhodes Covered Member ID Rhodes Member ID Guarantor Name 06/09/2022 1 [place] 113 John Nam [id number] Sue Nam Notes Date Note Type Note Provider Name and Address Organization Details Recorded Time 06/05/2022 text/html patient is a 77-year-old female who presents for evaluation of her left hip weakness. She underwent surgical repair of gluteus medius and minimus tendon tears at the left hip at [place] in December of 2018. She recovered uneventfully and went through physical therapy and felt that her strength was improved but over the last 3 years her strength is graded truly deteriorated and she now walks with a waddling gait particularly if she has to walk any distance it seems that the hip gets we quickly. She is not having any significant pain which she was having before her repair. Her chief complaint is the weakness and a waddling gait. She notes that she has gained weight. 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 She recalls she felt a pop stepping up onto a bus step in early 2018 and had immediate pain lateral aspect of her left hip. She was able to continue on her vacation doing a lot of walking for the subsequent several days. We saw her after that and she was sent through course of physical therapy but failed to improve and MRI scan in October of 2018 demonstrated retraction of essentially the entire gluteus medius muscle without fatty infiltration to a significant degree and she was for referred to [facility] as she wished to consider trying repair. She denies any numbness or tingling in the lower extremities she does not use a gait aid. She does have a cane at home but does not wish to use it. Her main problem is walking longer distances and climbing stairs. Lucas Jung MD [address] [place] [address], [place] [address], [place], [address], [place] [facility] 06/05/2022 20:01:30 OBGyn Episode No OBEpisode recorded.
--- OUTSIDE RECORDS SUMMARY | 2024-11-08 08:31 | XMS_ITS | Clinical Summary ---
Author Organization [facility] Address [address] [address] Phone Care Team Providers Care [place] Upholsterer Name Role Phone JanetAngel conde Sacha Primary [...] daily. Active fluticasone propionate (FLONASE) 50 mcg/spray [place], Suspension nasal inhaler Administer 2 Sprays in each nostril daily at bedtime. Active L gasseri/B bifidum/B longum (REY [employer] [facility] ORAL) Take 1 Capsule by mouth daily. [...] 1-dose 75+ series) 05/13/2022 INFLUENZA VACCINE (#1) 2024 Medical Devices Implanted Type Area It Generalist Device Identifier Shelf Expiration Date Model / Serial / Lot Bilateral Knee Replacements Insurance MEDICARE PART A H[facility] ONLY 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
--- OUTSIDE RECORDS SUMMARY | 2024-11-08 08:31 | XMS_ITS | Encounter Summary ---
Author Organization [facility] Address [address] [place] [address] Care Team Providers Care Office Technology Professor Name Role Phone Unavailable Primary Care Provider Unavailabl e Encounter Details Date Type Department Care Team (Late st Contact Info) Description 11/23/2018 Lab Requisition [facility] [address] [place] [address] Madelin Cueva MD [address] [facility] [facility] [address] [place] [address] Social History Tobacco Use Types Packs/Day Years Used Date Smoking Tobacco: Never Assessed Comments Unknown Sex and Gender Information Value Date Recorded Sex Assigned at Not on file Legal Sex Female 6:14 PM [employer] Gender Identity Not on file Sexual Orientation Not on file documented as of this encounter Plan of Treatment Not on file documented as of this encounter Procedures Procedure Name Priority Date/Time Associated Diagnosis Comments DERMATOPATHOLOGY Routine 11/22/2018 12:0 0 AM CDT documented in this encounter Results * DERMATOPATHOLOGY (11/22/2018 12:00 AM CDT) Case Report Dermatopathology Report Case: [id number] Authorizing Provider: Madelin Cueva MD Collected: 11/22/2018 12:00 AM Ordering Location: [facility] Received: 11/23/2018 06:48 AM Pathologist: [...] consists of a shave (2 pieces) measuring 0m3d2ve & 1l3o6cz. Jar 0. 4:37 PM CDT DERMATOPATHOLOGY LABORATORY [...] characteristic determined by the Dermatopathology Laboratory at [facility], directed by Dr. Jaz Black. These tests need not be, and therefore are not, approved by the [place] Food and Drug Administration. The tests are used for clinical purposes. Billing Codes Specimen Charges Stain Charges 28019 1 4:37 PM CDT DERMATOPATHOLOGY LABORATORY Embedded Images 4:37 PM CDT DERMATOPATHOLOGY LABORATORY Pathology/Cytolog y TISSUE SPECIMEN FROM SKIN / Unknown 11/22/2018 11/23/2018 6:48 AM CDT us Madelin Cueva MD LAB - PATHOLOGY/CYTOLOGY OR DERABLES Final Result DERMATOPATHOLOGY LABORATORY [facility] - Department of Dermatology [facility], [address] [place] [address], [facility] [phone] documented in this encounter Visit Diagnoses Not on filedocumented in this encounter
--- OUTSIDE RECORDS SUMMARY | 2024-11-08 08:31 | XMS_ITS | Encounter Summary ---
Author Organization [facility] Address [address] [facility] [place] [address] Care Team Providers Care Project Management Analyst Name Role Phone Unavailable Primary Care Provider Unavailabl e Encounter Details Date Type Department Care Team (Late st Contact Info) Description 03/24/2023 Lab Requisition [facility] - DermPath Lab [address] [facility], [place] [address] Zahira Andrews MD [address] [facility] 3 [place] [address] Social History Tobacco Use Types Packs/Day Years Used Date Smoking Tobacco: Never Assessed Comments Unknown Sex and Gender Information Value Date Recorded Sex Assigned at Not on file 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 Gender Identity Not on file Sexual Orientation Not on file documented as of this encounter Plan of Treatment Not on file documented as of this encounter Procedures Procedure Name Priority Date/Time Associated Diagnosis Comments DERMATOPATHOLOGY Routine 03/24/2023 3:05 PM HEALTH UNIT CLERK documented in this encounter Results * DERMATOPATHOLOGY (03/24/2023 3:05 PM HEALTH UNIT CLERK) Case Report Dermatopathology Report Case: [id number] Authorizing Provider: Zahira Andrews MD Collected: 03/24/2023 03:05 PM Ordering Location: [facility] Derm[facility] Lab Received: 03/25/2023 01:52 PM Pathologist: Beeln Emerson MD Specimen: Skin, right shoulder 4 12:29 PM HEALTH UNIT CLERK DERMATOPATHOLOGY LABORATORY Final Diagnosis Specimen A. SKIN, right shoulder: DERMAL SCAR RESIDUAL SQUAMOUS CELL CARCINOMA NOT IDENTIFIED (L90.5) 4 12:29 PM HEALTH UNIT CLERK DERMATOPATHOLOGY LABORATORY at 1229 HEALTH UNIT CLERK Clinical History SCC BX Proven 4 12:29 PM [facility] DERMATOPATHOLOGY LABORATORY Gross Description Specimen A: Received is one formalin filled container labeled with the patient's name and designated right shoulder. The specimen consists of a non-oriented ellipse of skin measuring 73c97h4 mm. Also, there a lesion 5x4 mm. The margin is inked green. The 12 o'clock and 6 o'clock tips are submitted in cassette 1. The remainder of the ellipse is serially sectioned and submitted in cassette 2 - 3. Jar 0. 4 12:29 PM [facility] DERMATOPATHOLOGY LABORATORY Microscopic Description Specimen A. SKIN, right shoulder: There are fibroblasts and collagen bundles oriented parallel to the skin surface. There are elongated blood vessels, some of which are oriented perpendicular to the skin surface. No residual squamous cell carcinoma is identified. 4 12:29 PM [facility] DERMATOPATHOLOGY LABORATORY Disclaimer An external and internal positive and negative controls are appropriate for the histochemical, immunohistochemical and immunofluorescence stain(s) in this case (if any), except where stated explicitly. The performance characteristics of the stain(s) cited in this report were developed and its performance characteristic determined by the Dermatopathology Laboratory at [facility], directed by Dr. aJz Black. These tests need not be, and therefore are not, approved by the [place] Food and Drug Administration. The tests are used for clinical purposes. Billing Codes Specimen Charges Stain Charges 54182 1 4 12:29 PM [facility] DERMATOPATHOLOGY LABORATORY Embedded Images 4 12:29 PM [facility] DERMATOPATHOLOGY LABORATORY Pathology/Cytolo gy TISSUE SPECIMEN FROM SKIN / Unknown 03/24/2023 3:05 PM HEALTH UNIT CLERK 03/25/2023 1:52 PM [facility] us Zahira Andrews MD LAB - PATHOLOGY/CYTOLOGY ORD ERABLES Final Result DERMATOPATHOLOGY LABORATORY [facility] - Department of Dermatology [address], [address] [place] [address], [facility] [phone] documented in this encounter Visit Diagnoses Not on filedocumented in this encounter
--- OUTSIDE RECORDS SUMMARY | 2024-11-08 08:31 | XMS_ITS | Encounter Summary ---
Author Organization [facility] Address [address] [facility] [place] [address] Care Team Providers Care Hvac Service Technician Name Role Phone Unavailable Primary Care Provider Unavailabl e Encounter Details Date Type Department Care Team (Late st Contact Info) Description 10/21/2022 Lab Requisition [facility] - DermPath Lab [address] [facility], [place] [address] Zahira Andrews MD [address] [facility] 3 [place] [address] Social History Tobacco Use Types Packs/Day Years Used Date Smoking Tobacco: Never Assessed Comments Unknown Sex and Gender Information Value Date Recorded Sex Assigned at Not on file Legal 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 Gender Identity Not on file Sexual Orientation Not on file documented as of this encounter Plan of Treatment Not on file documented as of this encounter Procedures Procedure Name Priority Date/Time Associated Diagnosis Comments DERMATOPATHOLOGY Routine 10/21/2022 11:1 7 AM CDT documented in this encounter Results * DERMATOPATHOLOGY (10/21/2022 11:17 AM CDT) Case Report Dermatopathology Report Case: [id number] Authorizing Provider: Zahira Andrews MD Collected: 10/21/2022 11:17 AM Ordering Location: [facility] DermPath Lab Received: 10/21/2022 04:49 PM Pathologist: [...] characteristic determined by the Dermatopathology Laboratory at [facility], directed by Dr. Jaz Black. These tests need not be, and therefore are not, approved by the [place] Food and Drug Administration. The tests are used for clinical purposes. Billing Codes Specimen Charges Stain Charges 69370 72266 1 1 3 11:30 AM CDT DERMATOPATHOLOGY LABORATORY Embedded Images 3 11:30 AM CDT DERMATOPATHOLOGY LABORATORY Pathology/Cytology TISSUE SPECIMEN FROM SKIN / Unknown 10/21/2022 11:17 AM CDT 10/21/2022 4:49 PM CDT Miscellaneous samples (specimen) TISSUE SPECIMEN FROM SKIN / Unknown 10/21/2022 11:17 AM CDT 10/21/2022 4:49 PM CDT us Zahira Andrews MD LAB - PATHOLOGY/CYTOLOGY ORD ERABLES Final Result DERMATOPATHOLOGY LABORATORY [facility] - Department of Dermatology [facility] Medicine [address] [place] [address], [address] [phone] documented in this encounter Visit Diagnoses Not on filedocumented in this encounter
--- OUTSIDE RECORDS SUMMARY | 2024-11-08 08:31 | XMS_ITS | Encounter Summary ---
Author Organization [facility] Address [address] [facility] [place] [address] Care Team Providers Care Operating Room Nurse Name Role Phone Unavailable Primary Care Provider Unavailabl e Encounter Details Date Type Department Care Team (Late st Contact Info) Description 12/14/2018 Lab Requisition [facility] DermPath Lab [address] [facility], [place] [address] Madelin Cueva MD [address] [facility] 3 [place] [address] Social History Tobacco Use Types Packs/Day Years Used Date Smoking Tobacco: Never Assessed Comments Unknown Sex and Gender Information Value Date Recorded Sex Assigned at Not on file Legal Sex 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 Gender Identity Not on file Sexual Orientation Not on file documented as of this encounter Plan of Treatment Not on file documented as of this encounter Procedures Procedure Name Priority Date/Time Associated Diagnosis Comments DERMATOPATHOLOGY Routine 12/13/2018 12:0 0 AM CDT documented in this encounter Results * DERMATOPATHOLOGY (12/13/2018 12:00 AM CDT) Case Report Dermatopathology Report Case: [id number] Authorizing Provider: Madelin Cueva MD Collected: 12/13/2018 12:00 AM Ordering Location: [facility] DermPath Lab Received: 12/14/2018 07:00 AM Pathologist: Yashira Black MD Specimen: Skin, right pires 9 2:02 PM CDT DERMATOPATHOLOGY LABORATORY Final Diagnosis Specimen A. SKIN, right pires: DERMAL SCAR RESIDUAL BASAL CELL CARCINOMA NOT IDENTIFIED (L90.5) 9 2:02 PM CDT DERMATOPATHOLOGY LABORATORY at 1402 CDT Clinical History Bx proven BCC. Previous Bx: [id number]. 2:02 PM CDT DERMATOPATHOLOGY LABORATORY Gross Description Specimen A: Received is one formalin filled container labeled with the patient's name and designated right pires. The specimen consists of a non-oriented ellipse of skin measuring 83p10q6fk. The epidermal surface consists of a centrally located 21t23dp previous biopsy site. The margin is inked [...] characteristic determined by the Dermatopathology Laboratory at [facility], directed by Dr. Jaz Black. These tests need not be, and therefore are not, approved by the [place] Food and Drug Administration. The tests are used for clinical purposes. Billing Codes Specimen Charges Stain Charges 78232 1 2:02 PM CDT DERMATOPATHOLOGY LABORATORY Embedded Images 2:02 PM CDT DERMATOPATHOLOGY LABORATORY Pathology/Cytolog y TISSUE SPECIMEN FROM SKIN / Unknown 12/13/2018 12/14/2018 7:00 AM CDT us Madelin Cueva MD LAB - PATHOLOGY/CYTOLOGY OR DERABLES Final Result DERMATOPATHOLOGY LABORATORY [facility] - Department of Dermatology [address] [place] [address], 5[address] [place] [address], [facility] [phone] documented in this encounter Visit Diagnoses Not on filedocumented in this encounter
--- OUTSIDE RECORDS SUMMARY | 2024-11-08 08:31 | XMS_ITS | Clinical Summary ---
Author Organization [facility] [address] [facility] [address] Address [address] [place] [address] Care Team Providers Care Applications Manager Name Role Phone Angel Aj DO Primary Care Provider [phone] Allergies Active Allergy Reactions Criticality Noted Date [...] (12/01/2018): Added automatically from request for surgery [id number] Tear of left gluteus medius tendon 12/01/2018 Overview (12/01/2018): Added automatically from request for surgery [id number] Mixed hyperlipidemia 04/05/2018 Paroxysmal atrial fibrillation 10/08/2016 Therapeutic drug monitoring 10/08/2016 Essential hypertension 03/30/2016 Overview (05/21/2016): Essential hypertension Chronic anticoagulation 12/20/2015 Overview (05/21/2016): Chronic anticoagulation Resolved Problems Problem Noted Date Diagnosed Date Resolved Date Orthostasis 01/18/2022 01/18/2022 Cardiomyopathy 10/08/2016 04/14/2024 Encounters Date Type Department Care Team Description 10/17/2024 1:00 PM CDT Office Visit [facility] Cardiology [address] [place] [address] Linda Wolfe NP Paroxysmal atrial fibrillation (HCC) (Primary Dx); Chronic anticoagulation; [facility] current use 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 drug; Essential hypertension from Last 3 Months Immunizations Immunization Administration [...] TOTAL KNEE 02/15/2014 - 02/14/2015 Right right --2006 Left 2017 RETINAL DETACHMENT SURGERY 01/15/2015 - [...] 1 Linda Vision loss Mother's Sister 2 [place] Relation Name Status Comments Father Mother Riya Mother's Brother 1 Harjit Mother's Brother 2 Harjit Alive Mother's Sister 1 Linda Mother's Sister 2 Linda Alive Social History Tobacco Use Types Packs/Day Years Used Date Smoking Tobacco: Never Smokeless Tobacco: Never Tobacco Cessation:Counseling Given: Not Answered Alcohol Use Standard Drinks/Week Comments Yes 0 (1 standard drink = 0.6 oz pur e alcohol) rare--1x/year Comments No Sex and Gender Information Value Date Recorded Sex Assigned at Not on file 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 Gender Identity Female 05/24/2019 10:21 AM CDT Sexual Orientation Not on file Occupation Industry Job Start Date Job End Date Retired Not on file Not on file Not on file Obstetrics History Last Filed Vital Signs Vital Sign Reading Time Taken Comments Blood Pressure 138/62 10/17/2024 12:59 PM CDT Pulse 72 10/17/2024 12:59 PM CDT Temperature 36.4 C (97.5 F) 12/20/2018 4:00 PM LASER BEAM TRIM 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 Respiratory Rate 14 10/17/2024 12:59 PM CDT Oxygen Saturation 96% 10/17/2024 12:59 PM CDT Inhaled Oxygen Concentration - - Weight 80.3 kg (177 lb) 10/17/2024 12:59 PM CDT Height 167.6 cm (5' 6) 10/17/2024 12:59 PM CDT Body Mass Index 28.57 10/17/2024 12:59 PM CDT Plan of Treatment Health Maintenance Due Date Last Done Comments Depression Screening 1945 Fall Risk Assessment 1945 Hepatitis C Screening 1945 Osteoporosis Screening-Bone Density Scan 1945 Hepatitis B Screening 05/13/1965 Well Visit 65+ 05/13/2012 Pneumococcal vaccine 65+ (2 of 2 - PCV) 04/19/2014 04/19/2013 Covid-19 Vaccine (4 - 2024-2 6 season) 2024 11/12/2020, 05/15/2020, 04/24/2020 Influenza Vaccine (#1) 2024 , 11/21/2022, 11/12/2020, Additional history exists DTaP/Tdap/Td Vaccine (2 - Td or Tdap) 07/03/2034 07/03/2024 Zoster Vaccine Completed 03/26/2022, 12/24/2021 Medical Devices Implanted Type Area Getter Operator Device Identifier Shelf Expiration Date Model / Serial / Lot [employer] [id number] Swivelock C Fibertak Tigertail 4.75mm 22mm 2 Load 2 Rough And Ready Suture - [id number] Implanted:Qty: 1 on 12/20/2018 by Smita Ochoa MD at [facility] [place] Left: Buttocks [employer] 08/14/2020 AR-2324BCT -2 / / [id number] [employer] [id number] Swivelock C Fibertak Tigertail 4.75mm 22mm 2 Load 2 Rough And Ready Suture - [id number] Implanted:Qty: 1 on 12/20/2018 by Smita Ochoa MD at [facility] [place] Left: Buttocks [employer] 02/15/2020 AR-2324BCT -2 / / [id number] Lifenet [id number] Matracell Arthroflex 20a64cm Decellularize Thk2mm Graft Soft - [id number] - [id number] Implanted:Qty: 1 on 12/20/2018 by Smita Ochoa MD at [facility] [place] Left: Buttocks Lif[employer]et 08/24/2021 [id number] / [id number] / [employer] [id number] Swivelock C 4.75mm 19.1mm Closed Eyelet Vent Rough And Ready Suture - [id number] Implanted:Qty: 1 on 12/20/2018 by Smita Ochoa MD at [facility] [place] Left: Buttocks [employer] 10/15/2020 AR-[id number] / / [id number] [employer] [id number] Swivelock C Fibertak Tigertail 4.75mm 22mm 2 Load 2 Rough And Ready Suture - [id number] Implanted:Qty: 1 on 12/20/2018 by Smita Ochoa MD at [facility] [place] Left: Buttocks [employer] AR-2324BCT -2 / / [id number] Procedures Procedure Name Priority Date/Time Associated Diagnosis Comments ELECTROCARDIOGRAM REPORT Routine 10/17/2024 Paroxysmal atrial fibrillation (HCC) from Last 3 Months Results * Electrocardiogram Report (10/17/2024) 10/17/2024 us Linda Wolfe NP ECG ORDERABLES Edited Re sult - Final from Last 3 Months Insurance MEDICARE [facility] Care Teams Applications Manager Relationship Specialty Start Date End Date Angel Aj DO [facility] - General 05/15/16
[2024-11-28 16:07] VITALS: BMI 27.7
--- NOTE | 2024-11-28 16:07 | WPDSLEEPSTUD ---
Sleep Study Date of Study: 11/08/24 Ordering Provider: Adia Pichardo DO Interpreting Physician: Adia Pichardo DO Sleep Study Type: Split Polysomnogram Height: 1.68 m Weight: 78.018 kg Body Mass Index: 27.7 Neck Circumference (inches): 13.75 [place]: 7 Reason for Sleep Study Previously diagnosed sleep apnea but has never been treated. Difficulty staying asleep. Sleep History The patient is a 79-year-old female that had a sleep study ordered by her sleep physician for evaluation of sleep apnea. The patient denies awakening from sleep short of breath. She occasionally awakens at night with heartburn, belching or cough. She occasionally snores and is occasionally loud enough that others complain. She frequently has trouble sleeping when she has a cold. She denies waking up gasping for air throughout the night. She occasionally has breathing problems at night observed by herself or others. She denies sweating excessively at night. She occasionally has heart palpitations or irregular heartbeats during the night. She rarely falls asleep during the day and never while driving. She denies sleep paralysis and cataplexy. She denies having trouble at school or work due to sleepiness. She rarely experiences vivid dreamlike scenes upon awakening or falling asleep. She denies feeling afraid of going to sleep. She rarely has nightmares. She occasionally remembers her dreams. She occasionally has thoughts racing through her mind. She denies feeling sad or depressed. She rarely has anxiety. She denies having muscular tension. She denies noticing parts of her body jerk. She denies kicking during the night. She occasionally has crawling and aching feelings in her legs and occasionally has leg pain during the night. She denies grinding her teeth during sleep and denies awakening with morning jaw pain. She is rarely bothered by pain during the day and rarely awakened by pain during the night. She occasionally wakes up feeling stiff in the morning. She denies waking up with sore or achy muscles. She occasionally wakes up with pain in the neck, spine or other joints. She goes to bed between 11:30 p.m. to midnight. It takes her 5-10 minutes to fall asleep. She wakes up 2-4 times throughout the night to urinate and is able to fall back asleep within 5 minutes. She wakes up between 8:29 a.m.. She typically gets 7-8 hours of sleep per night. She will stay in bed for 5-10 minutes after waking up in the morning. She currently lives with her . She denies consuming any caffeinated beverages within 2 hours of bedtime. She denies engaging in physical exercise before bedtime. She will read and watch television before falling asleep. She rarely take naps in afternoon or the evening but they are refreshing. She consumes 3 caffeinated beverages per day. She denies tobacco, alcohol and recreational drug use. [facility] Past Medical History Medical History ELDA (obstructive sleep apnea) Plantar fasciitis of right foot Encounter for Postoperative Care Foot pain, right Orthopedic hardware present Skin cancer Gastrocnemius equinus of right lower extremity Spring ligament tear Flatfoot Posterior tibial tendon dysfunction (PTTD) of right lower extremity History of anesthesia reaction Arthritis Urinary frequency Weight gain Seasonal allergies Cataract Allergies Migraine headache Osteoarthritis Hemorrhoids Pulmonary heart disease Atrial fibrillation History of measles, mumps, or rubella Chicken pox Overactive bladder Vitamin deficiency Hyponatremia Hypertension Anemia Decreased GFR Surgical History Surgical History H/O melanoma excision 2024 left shoulder blade History of hip surgery left hip 2018 H/O foot surgery Cyst removed on left foot 08/2018 History of knee replacement Right 2006 Left 2017 H/O knee surgery Torn cartilage Left 2000 H/O tubal ligation BL 1978 Family History Family History Mother Family history of Alzheimer's disease, Onset Age: 85 Sibling Patient's brother is in good health Father MVA (motor vehicle accident) Social History Social History Social History: Caffeine-Soda,decaf tea Smoking status: Never smoker Second hand tobacco smoke exposure: No Alcohol intake: current Alcohol use details: rarely Substance use: never Substance use type: does not use Do You Feel Safe in your Home?: Yes Lack of Transportation: No Lack of Food: Never True Current Housing: I Have Housing Concerned About Future Housing: No Difficulty Paying Gas/Electric Bills: No Difficulty Paying for Meds: No Currently Unemployed: No Education: Bachelor's Degree Difficulty w/ Childcare or Family Care: No Living arrangements: with family Spiritual care concerns: No Medications Home Medications ?Medication ?Instructions ?Recorded ?Confirmed ?Type Lactobacills gasseri-Bifidobac 1 cap PO DAILY 03/30/19 10/04/24 History bifidum,longum 1.5 billion cell capsule ([employer]) acetaminophen 650 mg tablet 650 mg PO Q8-12H PRN Pain 03/30/19 10/04/24 History apixaban 5 mg tablet (Eliquis) 5 mg PO BID 03/30/19 10/04/24 History cholecalciferol (vitamin D3) 50 2,000 unit PO DAILY 03/30/19 10/04/24 History mcg (2,000 unit) capsule flecainide 50 mg tablet 50 mg PO BID 03/30/19 10/04/24 History fluticasone propionate 50 2 spray intranasal DAILY 03/30/19 10/04/24 History mcg/actuation nasal spray,suspension multivitamin 1 tablet PO DAILY 03/30/19 10/04/24 History metoprolol succinate 25 mg 12.5 mg PO HS 09/22/19 10/04/24 History tablet,extended release 24 hr valsartan 40 mg tablet 40 mg PO DAILY 09/22/19 10/04/24 History diclofenac sodium 1 % topical gel 2 gm topical HS PRN Pain 11/10/19 10/04/24 History calcium 600 mg (as 2 cap PO DAILY 05/23/20 10/04/24 History carbonate)-vitamin D3 12.5 mcg (500 unit) capsule (Calcium with Vit D3) amiloride 5 mg tablet 5 mg PO DAILY 08/14/20 10/04/24 History sennosides 8.6 mg tablet (senna) 8.6 mg PO DAILY 05/15/22 10/04/24 History peg 400-propylene glycol 0.4 %-0.3 1 drp EACH EYE DAILY PRN 02/25/23 10/04/24 History % eye drops (Systane Ultra) azelastine 137 mcg (0.1 %) nasal 137 mcg (0.137 mL) intranasal Q12H 06/16/24 10/04/24 Rx spray #90 mL cetirizine 5 mg-pseudoephedrine ER 1 tablet PO DAILY 07/13/24 10/04/24 History 120 mg tablet,extended release,12hr (Zyrtec-D) fluocinolone 0.01 % topical topical 07/27/24 10/04/24 History solution eszopiclone 2 mg tablet (Lunesta) 2 mg PO QHS #1 tablet 10/04/24 10/04/24 Rx omeprazole 20 mg capsule,delayed See Rx Instructions .Route 10/11/24 Rx release .COMPLEX #90 caps cephalexin 500 mg capsule 500 mg PO TID 7 days #21 caps 10/26/24 Rx amoxicillin 875 mg-potassium 1 tablet PO Q12H 5 days #10 tabs 10/31/24 Rx clavulanate 125 mg tablet Sleep Procedure A full night split study using the [employer] multi-channel system recorded the standard physiologic parameters including EEG, EOG, submentalis EMG, anterior tibialis EMG, EKG, body position, nasal and oral airflow using nasal pressure sensor and thermistor.? Respiratory parameters of chest and abdominal movements were recorded with Respiratory Inductance Plethysmography belts. Oxygen saturation was recorded by pulse oximetry. Video monitoring was also performed. Sleep stages, periodic limb movements, and EEG arousals were scored in 30 second epochs according to the criteria of the AASM Scoring Manual. The Apnea-Hypopnea Index was calculated using CMS guidelines for definition of hypopnea with 4% O2 desaturations while scoring respiratory events. Sleep Architecture During the diagnostic portion of the study, the total recording time was 189.7 minutes. The total sleep time was 140.0 minutes. Sleep latency was 10.2 minutes.? REM sleep was not achieved during this portion of the study. Sleep Efficiency was 73.8%. The patient had 12 awakenings for an awakening index of 5.1. Wake after sleep onset time was 39.5 minutes. The patient spent 23.0 minutes, 16.4% of total sleep time in Stage N1. The patient spent 117.0 minutes, 83.6% in Stage N2. The patient spent 0.0 minutes, 0.0% in Stage N3. The patient spent 0.0 minutes, 0.0% in Stage REM sleep. At 01:47:07 AM the patient was placed on PAP treatment and was titrated at pressures ranging from 5 cm H20 up to 9 cm H20. During the treatment portion of the study, the total recording time was 255.1 minutes.? The total sleep time was 203.0 minutes. Sleep latency was 7.5 minutes. REM latency was 71.5 minutes. Sleep Efficiency was 79.6%. Wake after Sleep Onset time was 45.0 minutes. The patient spent 52.5 minutes, 25.9% of total sleep time in Stage N1. The patient spent 122.0 minutes, 60.1% in Stage N2. The patient spent 0.0 minutes, 0.0% in Stage N3. The patient spent 28.5 minutes, 14.0% in Stage REM. Respiratory Analysis During the diagnostic portion of the study, the patient had 9 hypopneas and 5 obstructive apneas for an overall Apnea Hypopnea Index of 6.0 events per hour. The REM Apnea Hypopnea Index was 0. The NREM Apnea Hypopnea Index was 6.0. The patient had a Central Apnea Hypopnea Index of 0. There was no evidence of Williams-Kothari Respirations. During the treatment portion of the study, the patient had 7 hypopneas for an overall Apnea Hypopnea Index of 2.1 events per hour. The REM Apnea Hypopnea Index was 6.3. The NREM Apnea Hypopnea Index was 1.4. The patient had a Central Apnea Hypopnea Index of 0. There was no evidence of Williams-Kothari Respirations. The patient was started on CPAP 5 cm H2O and titrated to CPAP 9 cm H2O due to hypopneas. The patient was able to fall asleep starting on CPAP 5 cm H2O. The patient was able to achieve REM sleep starting on CPAP 7 cm H2O. On CPAP 7 cm H2O, the patient spent 59.5 minutes in NREM and 28.5 minutes in REM with 3 hypopneas, resulting in an AHI of 2.0. On CPAP 9 cm H2O, the patient spent 59.5 minutes in NREM with no respiratory events, resulting in an AHI of 0. The patient had a sleep efficiency of 73.3% on 7 cm H2O and 82.1% on 9 cm H2O. Arousals During the diagnostic portion of the study, there were a total of 38 arousals for an arousal index of 16.3.? There were 7 respiratory arousals for an index of 3.0. There were 12 periodic limb movement arousals for an index of 5.1.? There were 0 isolated limb movement arousals for an index of 0. There were 19 spontaneous arousals for an index of 8.1. During the treatment portion of the study, there were a total of 99 arousals for an index of 29.3.? There were 4 respiratory arousals for an index of 1.2. There were 43 periodic limb movement arousals for an index of 12.7.? There were 2 isolated limb movement arousals for an index of 0.6. There were 50 spontaneous arousals for an index of 14.8. Periodic Limb Movements During the diagnostic portion of the study, the patient had 5 isolated limb movements with an index of 2.1. The patient had 98 periodic limb movements with an index of 42.0, which is elevated (normal < 15). The patient had a total of 103 limb movements with a total limb movement index of 44.1. During the treatment portion of the study, the patient had 10 isolated limb movements with an index of 3.0. The patient had 96 periodic limb movements with an index of 28.4, which is elevated (normal < 15). The patient had a total of 106 limb movements with a total limb movement index of 31.3. Oximetry Data During the diagnostic portion of the study, the patient had an average oxygen saturation of 94.8% in wake with a minimum oxygen saturation of 82% and a maximum oxygen saturation of 99%. The patient had an average oxygen saturation of 92.8% in sleep with a minimum oxygen saturation of 83.0% and a maximum oxygen saturation of 98.0%. The patient had 19 oxygen desaturations resulting in an Oxygen Desaturation Index of 8.1. The patient spent 3.5 minutes, 1.9% of total sleep time with an oxygen saturation less than 88%. During the treatment portion of the study, the patient had an average oxygen saturation of 95.4% in wake with a minimum oxygen saturation of 92.0% and a maximum oxygen saturation of 98.0%. The patient had an average oxygen saturation of 95.3% in sleep with a minimum oxygen saturation of 85.0% and a maximum oxygen saturation of 98.0%. The patient had 27 oxygen desaturations resulting in an Oxygen Desaturation Index of 8.0. The patient spent 0.3 minutes, 0.1% of total sleep time with an oxygen saturation less than 88%. Snoring Profile Mild snoring was present intermittently in the baseline portion of the study. The snoring resolved once the patient was titrated to CPAP 9 cm H2O. Cardiac Profile The EKG lead showed normal sinus rhythm. No arrhythmias or premature beats were seen. During the diagnostic portion of the study, the average pulse rate was 62.6 bpm.? The minimum pulse rate was 55.0 bpm. The maximum pulse rate was 72.0 bpm. During the treatment portion of the study, the average pulse rate was 58.2 bpm.? The minimum pulse rate was 49.0 bpm. The maximum pulse rate was 73.0 bpm. EEG Profile No signs of seizure activity seen. Assessment and Plan Assessment and Plan (1) ELDA (obstructive sleep apnea): Code(s): G47.33 - Obstructive sleep apnea (adult) (pediatric) Status: Acute Assessment and Plan: In the baseline portion of the study, the patient had an overall AHI of 6.0 with desaturation down to 83%. This is consistent with mild sleep apnea. Due to the patient's atrial fibrillation, she qualifies for treatment. The patient's sleep apnea resolved on the final pressure setting. I recommend that the patient be prescribed CPAP 9 cm H2O, size small Resmed AiFit N30 nasal mask, CPAP filters/tubing and heated humidity. If the patient would like to pursue other treatment options, she would be a candidate for a mandibular advancement device. This should be used with all episodes of sleep.? Compliance should be reviewed within 31-90 days of starting therapy for usage greater than 4 hours per night greater than 70% of the nights. The patient should be asked about symptoms such as?excessive daytime sleepiness, quality of sleep, decreased nocturia, increased?mental functioning such as memory, mood, and concentration. Data The data obtained during this sleep study is adequate for interpretation. Certification This sleep study has been reviewed by a board certified sleep medicine physician.
== END 2024-11-09 06:25 | disposition home or self-care (01) ==
LOC: ANHCSM 08:19
PROVIDERS: PCP Internal Medicine; Visit Provider Family Medicine
DX: G47.33 Obstructive sleep apnea (adult) (pediatric) (principal)
CPT/HCPCS: 95811